=== PATIENT | female | born 1965 | race African-American/Black ===

== ENCOUNTER 2020-09-16 08:24 | Inpatient (IN) | payer MEDICAID, SELFPAY ==
[2020-09-16] VITALS (12 sets, daily range): BP systolic 150–190; BP diastolic 62–142; PULSE 78–130; RESP 18–20; TEMP 36.1–37; O2SAT 97–98; BMI 27.8
--- NOTE | ~2020-09-16 | XR_ITS ---
EXAMINATION: XR CHEST CLINICAL INFORMATION: SOB COMPARISON: None TECHNIQUE: Frontal view of the chest was obtained. FINDINGS: There is moderate cardiomegaly with normal pulmonary vascularity. The lungs are well-expanded and clear. No gross bony abnormality seen. XR/XR chest 1V IMPRESSION: Moderate cardiomegaly. No acute process seen.
--- NOTE | 2020-09-16 08:43 | ECG_ITS ---
Test Reason : TACHY Blood Pressure : / mmHG Vent. Rate : 129 BPM Atrial Rate : 093 BPM P-R Int : 000 ms QRS Dur : 078 ms QT Int : 268 ms P-R-T Axes : 000 -35 -33 degrees QTc Int : 392 ms Atrial fibrillation with rapid ventricular response with premature ventricular or aberrantly conducted complexes Left axis deviation cannot exclude old Inferior infarct , age undetermined Abnormal ECG When compared with ECG of 25-FEB-2009 08:43, Atrial fibrillation has replaced Sinus rhythm Nonspecific T wave abnormality, worse in Inferior leads Nonspecific T wave abnormality now evident in Anterolateral leads Referred By: Generic ED Physician Electronically Signed By:HEIDE MOON
--- NOTE | 2020-09-16 08:44 | PC.NURSE ---
difficulty laying flat or semi fowlers, r>l le edema noted
--- NOTE | 2020-09-16 09:04 | ED_ITS ---
HPI - SOB/Dyspnea General Chief Complaint: Dyspnea Stated Complaint: SOB Time Seen by Provider: 09/16/20 09:32 Source: patient Mode of arrival: ambulatory Limitations: no limitations History of Present Illness HPI Narrative: Patient presents to the ED for shortness of breath after sensation and sensation of something stuck in the throat. Patient states she feels her heart is beating fast. Patient states mild swelling of lower extremities. Patient denies any fever, chills, coughing up blood, chest pain on inspiration, chest pain, any drug use, recent long travel, or any history of alcohol abuse. Related Data Home Medications Medication Instructions Recorded Confirmed No Known Home Meds 09/16/20 09/16/20 Allergies Allergy/AdvReac Type Severity Reaction Status Date / Time No Known Allergies Allergy Unverified 01/05/20 15:53 Review of Systems Review of Systems: Yes all other systems are reviewed and are negative Constitutional: Constitutional: Reports as per HPI and Reports no additional constitutional complaints Eyes: Eyes: Reports as per HPI and Reports no additional eye complaints ENT: Reports system reviewed and no additional complaints, except as documented and Reports as per HPI Cardiovascular: Cardiovascular: Reports as per HPI, Reports no additional cardiovascular complaints and Reports dyspnea Respiratory: Respiratory: Reports as per HPI, Reports no additional respiratory complaints and Reports dyspnea Gastrointestinal: Gastrointestinal: Reports as per HPI and Reports no additional gastrointestinal complaints Genitourinary: Genitourinary: Reports no additional female genitourinary complaints and Reports as per HPI Musculoskeletal: Musculoskeletal: Reports no additional musculoskeletal complaints and Reports as per HPI Neurologic: Reports system reviewed and no additional complaints, except as documented and Reports as per HPI [facility] Social History Social History (Updated 09/16/20 @ 11:53 by Patrice Nj MD) Household Members: Significant Other Housing: House Do you presently have visiting nurse or other home services: No Alcohol intake: never Patient Tobacco Use Status: Former Tobacco user Quit Date: about 2018 Smoked in Last 30 Days: No Use of substances other than those prescribed or required for medical reasons: Yes Substance Use Type: Marijuana Have you been hit, kicked, punched, or otherwise hurt by someone within the past year? If so, by whom?: No Do you feel safe in your current relationship?: No Is there a partner from a previous relationship who is making you feel unsafe now?: No Are you made to feel afraid or neglected: No Advance Directives: Yes Advance Directives Information Provided: No Advance Directives on File: No Advance Directives Date on File: 09/16/20 Do you have thoughts of harming others: None Do you have a plan to hurt others: No Plan Recently lost weight without trying: No Eating poorly because of decreased appetite: No Patient : No Physical Exam Vital Signs: Vital Signs: Last Vital Signs Temp 97.0 F 09/16/20 12:50 Pulse 108 H 09/16/20 13:05 Resp 20 09/16/20 12:50 BP 190/100 H 09/16/20 13:05 Pulse Ox 98 09/16/20 12:50 Body Mass Index 27.8 Const: General: cooperative, healthy appearing, comfortable, no acute distress, well developed, alert and awake Orientation/consciousness: patient oriented x3 HENMT: Head: Yes normal to inspection, Yes No palpable skull fracture present, Yes normocephalic, Yes atraumatic and Yes abrasion Eyes: General: appearance normal, both eyes and all related structures Neck: Neck: Yes normal visual inspection, Yes full ROM, Yes no lymphadenopathy, Yes no meningeal signs, Yes trachea midline and Yes supple Chest: Chest palpation & inspection: normal inspection of the chest and normal palpation of entire chest wall Resp: Effort & Inspection: normal respiratory effort and able to speak in complete sentences Auscultation: clear to auscultation bilaterally Cardio: Jugular venous distension: no JVD Heart sounds: S1 normal heart sound present and S2 normal heart sound present GI: Inspection: Yes normal to inspection and No abdominal wall ecchymosis Palpation (GI): Soft to palpation, not firm, nontender, no guarding and not rigid : General: No CVA tenderness and Yes no CVA tenderness Back/Spine/Pelvis: Back: no CVA tenderness, No CVA tenderness and No back tenderness Skin: General skin exam: no rashes or lesions noted and elasticity normal Neuro: General: patient oriented x3, gait normal, no meningeal signs and CN's II-XI intact bilaterally Cranial nerves: Yes CN's II-XII intact bilaterally Extrem: Other: Bilateral lower extremity positive for 1+ pitting edema. Negative for calf tenderness General: Yes normal to inspection and Yes full ROM Psych: Appearance: grossly normal, well kempt and not disheveled Course Course Course Narrative: EKG shows new atrial fibrillation. Patient has no history of atrial fibrillation on previous EKG. Patient herself never been formally regular heartbeat. Heart rate within 140 to 160s on alarm security or surveillance monitor. Cardizem 10 mg IV ordered. Labs ordered. Reevaluation(s) Reevaluation #1: Patient given other Cardizem 20 due to heart rate going back to 140s after being controlled to 108. BNP over 1000. Patient given Lasix. Troponin 22.5. X-ray negative for pneumonia. X-ray shows cardiomegaly. Spoke with hospitalist Dr. Schuster will accept patient to be admitted. Recommend putting patient on cadizem drip to keep heart rate control. Patient agreeable with plan to be admitted. MDM - SOB/Dyspnea MDM Narrative Medical decision making narrative: Atrial fibrillation. CHF Lab Data Result diagrams: 09/16/20 08:55 09/16/20 08:55 Labs: Lab Results 09/16/20 09/16/20 09/16/20 Range/Units 08:55 08:55 08:55 WBC 5.2 (4.8-10.8) X10*3/uL RBC 4.95 (4.20-5.50) X10*6/uL Hgb 14.1 (12.0-16.0) g/dl Hct 44.5 (37-47) % MCV 89.9 (80-98) fL MCH 28.5 (27.0-33.0) pg MCHC 31.7 (31.0-35.0) g/dl RDW 13.1 (11.0-16.0) % Plt Count 246 (160-400) X10*3/uL MPV 10.8 (9.4-12.3) fL Immature Gran % (Auto) 0.0 (0.0-0.4) % Neut % (Auto) 33.8 L (45-73) % Lymph % (Auto) 46.6 H (20-40) % [place] % (Auto) 7.3 (2-11) % Eos % (Auto) 11.5 H (0-4) % Baso % (Auto) 0.8 (0-2) % Lymph # (Auto) 2.4 (1.2-4.9) X10*3/uL [place] # (Auto) 0.4 (0.1-1.2) X10*3/uL Eos # (Auto) 0.6 H (0.0-0.4) X10*3/uL Baso # (Auto) 0.0 (0.0-0.2) X10*3/uL Abs Immat Gran (auto) 0.00 (0.00-0.03) X10*3/uL Absolute Neuts (auto) 1.8 L (2.0-8.3) X10*3/uL Absolute Nucleated RBC 0.000 (0.0-0.012) X10*3/uL Nucleated RBC % (auto) 0.0 (0.0-0.2) /100WBC PT 13.8 H (10.8-13.0) SEC INR 1.2 H (0.9-1.1) APTT 34.7 (24.1-38.0) SEC Sodium 139 (135-145) mmol/L Potassium 4.2 (3.3-5.1) mmol/L Chloride 106 (96-108) mmol/L Carbon Dioxide 22 (22-29) mmol/L Anion Gap 15 (12-20) BUN 15 (9-16) mg/dL Creatinine 1.18 (0.5-1.4) mg/dL Estim Creat Clear Calc 66.1 Estimated GFR 47 Random Glucose 121 H (60-115) mg/dL Calcium 9.2 (8.4-10.2) mg/dL Total Bilirubin 0.9 (0.0-1.0) mg/dL Direct Bilirubin 0.6 H (0.0-0.5) mg/dL AST 28 (5-31) U/L ALT 28 (0-31) U/L Alkaline Phosphatase 107 (39-117) U/L Troponin I High Sens (<3.5-17.0) ng/L B-Natriuretic Peptide (<100) pg/mL Total Protein 6.4 L (6.5-8.0) g/dL Albumin 3.8 (3.5-5.0) g/dL TSH 1.75 (0.32-4.0) uIU/mL 09/16/20 09/16/20 Range/Units 08:55 08:55 WBC (4.8-10.8) X10*3/uL RBC (4.20-5.50) X10*6/uL Hgb (12.0-16.0) g/dl Hct (37-47) % MCV (80-98) fL MCH (27.0-33.0) pg MCHC (31.0-35.0) g/dl RDW (11.0-16.0) % Plt Count (160-400) X10*3/uL MPV (9.4-12.3) fL Immature Gran % (Auto) (0.0-0.4) % Neut % (Auto) (45-73) % Lymph % (Auto) (20-40) % [place] % (Auto) (2-11) % Eos % (Auto) (0-4) % Baso % (Auto) (0-2) % Lymph # (Auto) (1.2-4.9) X10*3/uL [place] # (Auto) (0.1-1.2) X10*3/uL Eos # (Auto) (0.0-0.4) X10*3/uL Baso # (Auto) (0.0-0.2) X10*3/uL Abs Immat Gran (auto) (0.00-0.03) X10*3/uL Absolute Neuts (auto) (2.0-8.3) X10*3/uL Absolute Nucleated RBC (0.0-0.012) X10*3/uL Nucleated RBC % (auto) (0.0-0.2) /100WBC PT (10.8-13.0) SEC INR (0.9-1.1) APTT (24.1-38.0) SEC Sodium (135-145) mmol/L Potassium (3.3-5.1) mmol/L Chloride (96-108) mmol/L Carbon Dioxide (22-29) mmol/L Anion Gap (12-20) BUN (9-16) mg/dL Creatinine (0.5-1.4) mg/dL Estim Creat Clear Calc Estimated GFR Random Glucose (60-115) mg/dL Calcium (8.4-10.2) mg/dL Total Bilirubin (0.0-1.0) mg/dL Direct Bilirubin (0.0-0.5) mg/dL AST (5-31) U/L ALT (0-31) U/L Alkaline Phosphatase (39-117) U/L Troponin I High Sens 22.5 H* (<3.5-17.0) ng/L B-Natriuretic Peptide 1315 H Cancelled (<100) pg/mL Total Protein (6.5-8.0) g/dL Albumin (3.5-5.0) g/dL TSH (0.32-4.0) uIU/mL ECG Data Interpretation: Atrial fibrillation with RVR. Ventricular rate 129. QT to 68. QRS 78. QTC 3 92. Negative STEMI Critical Care Time Critical Care Time Critical Care Time: Yes Total Critical Care Time: 60 Attestation: Patient given Cardizem due to atrial fibrillation rate of 160. BNP 1000 patient given Lasix. As recommended by hospitalists patient placed on Cardizem drip. Discharge Plan Discharge Clinical Impression: New onset atrial fibrillation, Acute CHF Patient Disposition: Admitted As Inpatient Interventions: Admission Worksheet (ED) Last Done: 09/16/20 12:44 Discharge Date/Time: 09/16/20 12:45
[2020-09-16 09:05] LABS: Basophils Percent Auto 0.8 % (0-2); Eosinophils Absolute Auto 0.6 X10*3/uL (0.0-0.4); Eosinophils Percent Auto 11.5 % (0-4); Hematocrit 44.5 % (37-47); Hemoglobin 14.1 g/dl (12.0-16.0); Lymphocytes Absolute Auto 2.4 X10*3/uL (1.2-4.9); Lymphocytes Percent Auto 46.6 % (20-40); MANUAL DIFF FLAG NO; Mean Corpuscular HGB Conc 31.7 g/dl (31.0-35.0); Mean Corpuscular Hemoglobin 28.5 pg (27.0-33.0); Mean Corpuscular Volume 89.9 fL (80-98); Mean Platelet Volume 10.8 fL (9.4-12.3); Monocytes Absolute Auto 0.4 X10*3/uL (0.1-1.2); Monocytes Percent Auto 7.3 % (2-11); Neutrophils Absolute Auto 1.8 X10*3/uL (2.0-8.3); Neutrophils Percent Auto 33.8 % (45-73); Platelet Count 246 X10*3/uL (160-400); Red Blood Count 4.95 X10*6/uL (4.20-5.50); Red Cell Distribution Width 13.1 % (11.0-16.0); White Blood Count 5.2 X10*3/uL (4.8-10.8)
[2020-09-16 09:13] LABS: INTERNATIONAL NORM RATIO 1.2 (0.9-1.1); Prothrombin Time 13.8 SEC (10.8-13.0)
[2020-09-16] MEDS: dilTIAZem HCL 50 MG/10 ML VIAL 10 MG IVPUSH ×2 (09:15→10:38)
[2020-09-16 09:16] LABS: Partial Thromboplastin Time 34.7 SEC (24.1-38.0)
[2020-09-16 09:29] LABS: Anion Gap 15 (12-20); Blood Urea Nitrogen 15 mg/dL (9-16); Calcium 9.2 mg/dL (8.4-10.2); Carbon Dioxide 22 mmol/L (22-29); Chloride 106 mmol/L (96-108); Creatinine Clr Calc Pharmacy 66.1; Estimated Glomerular Filt Rate 47; Glucose Random 121 mg/dL (60-115); Potassium 4.2 mmol/L (3.3-5.1); Sodium 139 mmol/L (135-145)
--- NOTE | 2020-09-16 09:29 | PC.NURSE ---
pt remains in a fib s/p cardizem bolus, now a controlled rate 80-100
[2020-09-16 09:41] LABS: Troponin-I High Sensitivity 22.5 ng/L (<3.5-17.0)
[2020-09-16 09:56] LABS: Alanine Aminotransferase 28 U/L (0-31); Albumin Level 3.8 g/dL (3.5-5.0); Alkaline Phosphatase 107 U/L (39-117); Aspartate Amino Transferase 28 U/L (5-31); Bilirubin Direct 0.6 mg/dL (0.0-0.5); Bilirubin Total 0.9 mg/dL (0.0-1.0); Total Protein 6.4 g/dL (6.5-8.0)
[2020-09-16 10:06] LABS: B Type Natriuretic Peptide 1315 pg/mL (<100)
[2020-09-16 10:16] LABS: TSH reflex Free T4 1.75 uIU/mL (0.32-4.0)
[2020-09-16] MEDS: Furosemide 40 MG/4 ML VIAL IVPUSH ×2 (10:39→17:03)
--- NOTE | 2020-09-16 11:47 | P.HPHOSP_ITS ---
History of Present Illness Date of Service: 09/16/20 Chief Complaint: sob 54-year-old female presented with 2 weeks of shortness of breath. Patient states that prior to 2 weeks ago she was feeling in good health. She then started to notice shortness of breath, worse on exertion, orthopnea, increasing lower extremity edema. She was relieved by rest. She denies any palpitations, chest pain, fever chills. She denies any history of arrhythmia or CHF. She is not on any home meds and has no noted medical history. She denies any symptoms of sleep apnea, denies alcohol, denies caffeine. In the ED, EKG showed atrial fibrillation at 129, chest x-ray showed moderate cardiomegaly with normal pulmonary vascularity, BNP elevated at 1315, TSH 1.75. Patient was given 40 mg of IV Lasix and started on Cardizem. Review of Systems Review of Systems: Constitutional: Denies fever, denies Chills Eyes: denies blurry vision ENT: denies sore throat CVS: denies chest pain Respiratory: dyspnea GI: no abdominal pain : denies dysuria MSK: denies neck pain Skin: denies rash Neuro: denies specific motor weakness Psych: denies suicidal ideation Endocrine: denies heat/cold intoleratnce Hematologic: denies easy bleeding Allergy: denies hives PMFSH Pertinent family history: htn Social History (Updated 09/16/20 @ 11:53 by Patrice Nj MD) Alcohol intake: never Patient Tobacco Use Status: Former Tobacco user Quit Date: about 2017 Smoked in Last 30 Days: No Use of substances other than those prescribed or required for medical reasons: No Substance Use Type: Marijuana Advance Directives: Yes Advance Directives Information Provided: No Advance Directives on File: No Patient : No Meds Allergies Allergy/AdvReac Type Severity Reaction Status Date / Time No Known Allergies Allergy Unverified 01/05/20 15:53 Active Medications: Current Medications Generic Name Dose Route Start Last Admin Trade Name Freq PRN Reason Stop Dose Admin Diltiazem HCl 125 mg/ Sodium 125 mls @ 0 mls/hr 09/16/20 11:45 Chloride IVCONT .Q0M [facility] Protocol Per Protocol Pharmacy Consult 1 each 09/16/20 11:10 Consult Rx Perform Med Rec MISCELLANE ONCE PRN Consult order Home Medications Medication Instructions Recorded Confirmed Last Taken Type No Known Home Meds 09/16/20 09/16/20 Unknown History Physical Exam Vital Signs and Narrative: Vital Signs: Last Vital Signs Temp 98 F 09/16/20 08:37 Pulse 114 H 09/16/20 10:38 Resp 18 09/16/20 08:37 BP 175/106 H 09/16/20 10:38 Pulse Ox 98 09/16/20 08:37 Body Mass Index 27.8 General: no acute distress while at rest HEENT: atraumatic Neck: normal to visual inspection CVS: S1, S2, iregular, rapid Resp: diminished Chest: non tender GI: soft, non tender, non distended : no CVA tenderness Skin: no rashes Extremities: 2-3+ edema bilateral Neuro: Oriented X3, grossly intact Psych: cooperative Results Labs CBC and Chem 7: 09/16/20 08:55 09/16/20 08:55 Labs: Laboratory Results - last 24 hr 09/16/20 09/16/20 09/16/20 08:55 08:55 08:55 MCV 89.9 MCH 28.5 MCHC 31.7 RDW 13.1 Plt Count 246 MPV 10.8 Immature Gran % (Auto) 0.0 Neut % (Auto) 33.8 L Lymph % (Auto) 46.6 H Person % (Auto) 7.3 Eos % (Auto) 11.5 H Baso % (Auto) 0.8 Lymph # (Auto) 2.4 Person # (Auto) 0.4 Eos # (Auto) 0.6 H Baso # (Auto) 0.0 Abs Immat Gran (auto) 0.00 Absolute Neuts (auto) 1.8 L Absolute Nucleated RBC 0.000 Nucleated RBC % (auto) 0.0 PT 13.8 H INR 1.2 H APTT 34.7 Anion Gap 15 Estim Creat Clear Calc 66.1 Estimated GFR 47 Random Glucose 121 H Calcium 9.2 Total Bilirubin 0.9 Direct Bilirubin 0.6 H AST 28 ALT 28 Alkaline Phosphatase 107 Troponin I High Sens B-Natriuretic Peptide Total Protein 6.4 L Albumin 3.8 TSH 1.75 09/16/20 09/16/20 08:55 08:55 MCV MCH MCHC RDW Plt Count MPV Immature Gran % (Auto) Neut % (Auto) Lymph % (Auto) Person % (Auto) Eos % (Auto) Baso % (Auto) Lymph # (Auto) Person # (Auto) Eos # (Auto) Baso # (Auto) Abs Immat Gran (auto) Absolute Neuts (auto) Absolute Nucleated RBC Nucleated RBC % (auto) PT INR APTT Anion Gap Estim Creat Clear Calc Estimated GFR Random Glucose Calcium Total Bilirubin Direct Bilirubin AST ALT Alkaline Phosphatase Troponin I High Sens 22.5 H* B-Natriuretic Peptide 1315 H Cancelled Total Protein Albumin TSH Imaging Radiologist's Impressions: Impressions Chest X-Ray 09/16/20 09:13 IMPRESSION: Moderate cardiomegaly. No acute process seen. Assessment and Plan (1) New onset a-fib: Status: Acute (2) Acute CHF: Status: Acute (3) HTN (hypertension): Status: Acute 54F presented with sob, found to have new onset afib with rvr and chf new onset atrial fibrillation with RVR complicated by acute unspecified CHF diltiazem drip echo cardio eval iv lasix suspect undiagnosed HTN iv cardizem for now, monitor, will likely need to add meds vte prophylaxis - lovenox
--- NOTE | 2020-09-16 12:20 | PC.NURSE ---
REPORT GIVEN FOR [facility] ADMISSION
[2020-09-16 12:23] LABS: COVID-19 Test Negative (Negative)
--- NOTE | 2020-09-16 12:24 | PC.NURSE ---
PROVIDERS AWARE OF HTN
[2020-09-16] MEDS: dilTIAZem HCL 125 MG in 0.9 % Sodium Chloride 100 ML 10 MG IVCONT (13:05)
[2020-09-16] MEDS: Enoxaparin Sodium 40 MG/0.4 ML SYRINGE SUBCUT (13:11)
[2020-09-16] MEDS: Acetaminophen 325 MG TABLET 650 MG PO (13:24)
[2020-09-16] MEDS: 0.9 % Sodium Chloride Flush 3 ML SYRINGE IVFLUSH (20:45)
[2020-09-17 03:15] VITALS: BP 152/54; PULSE 88; RESP 18; TEMP 36.9; O2SAT 100
[2020-09-17 06:10] LABS: Hematocrit 39.8 % (37-47); Hemoglobin 12.5 g/dl (12.0-16.0); Mean Corpuscular HGB Conc 31.4 g/dl (31.0-35.0); Mean Corpuscular Volume 89.2 fL (80-98); Mean Platelet Volume 10.9 fL (9.4-12.3); Platelet Count 223 X10*3/uL (160-400); Red Blood Count 4.46 X10*6/uL (4.20-5.50); Red Cell Distribution Width 12.9 % (11.0-16.0); White Blood Count 4.3 X10*3/uL (4.8-10.8)
[2020-09-17 06:17] LABS: Anion Gap 12 (12-20); Blood Urea Nitrogen 13 mg/dL (9-16); Calcium 8.8 mg/dL (8.4-10.2); Carbon Dioxide 29 mmol/L (22-29); Chloride 104 mmol/L (96-108); Creatinine Clr Calc Pharmacy 69.1; Estimated Glomerular Filt Rate 50; Glucose Random 95 mg/dL (60-115); Magnesium 1.6 mg/dL (1.6-2.6); Potassium 3.8 mmol/L (3.3-5.1); Sodium 141 mmol/L (135-145)
[2020-09-17] MEDS: Furosemide 40 MG/4 ML VIAL IVPUSH ×2 (06:28→17:13)
[2020-09-17] MEDS: 0.9 % Sodium Chloride Flush 3 ML SYRINGE IVFLUSH (07:57)
[2020-09-17 08:00] VITALS: BP 156/68; PULSE 101; RESP 18; TEMP 36.5; O2SAT 97
[2020-09-17] MEDS: dilTIAZem HCL 125 MG in 0.9 % Sodium Chloride 100 ML 10 MG IVCONT (08:56)
[2020-09-17] MEDS: Magnesium Sulfate/H2O 2 GM/50 ML PIGGYBACK IV (08:57)
--- NOTE | 2020-09-17 09:40 | HO.PM.IMPN ---
Subjective Subjective Date of Service: 09/17/20 Interval History: sob improved Cardiovascular Cardiovascular: Reports no additional cardiovascular complaints Gastrointestinal Gastrointestinal: Reports no additional gastrointestinal complaints Physical Exam Vital Signs: Vital Signs: Last Vital Signs Temp 97.7 F 09/17/20 08:00 Pulse 101 H 09/17/20 08:00 Resp 18 09/17/20 08:00 BP 156/68 H 09/17/20 08:00 Pulse Ox 97 09/17/20 08:00 Body Mass Index 27.8 General: AO X 3, no acute distress Resp: CTA bilateral CVS: S1,S2,rapid irregular, 1-2+ edema GI: soft, non tender, non distended Neuro: motor grossly intact Psych: appropriate affect Objective Data Current Medications Generic Name Dose Route Start Last Admin Trade Name Freq PRN Reason Stop Dose Admin Acetaminophen 650 mg 09/16/20 12:52 09/16/20 13:24 Acetaminophen 325 Mg Tablet PO 650 mg Q6H PRN Administration pain Apixaban 5 mg 09/17/20 10:00 Apixaban 5 Mg Tablet PO BID ELIZABETH Enoxaparin Sodium 40 mg 09/16/20 11:49 09/16/20 13:11 Enoxaparin Sodium 40 Mg/0.4 Ml Syringe SUBCUT 40 mg Q24H ELIZABETH Administration Furosemide 40 mg 09/16/20 18:00 09/17/20 06:28 Furosemide 40 Mg/4 Ml Vial IVPUSH 40 mg Q12H ELIZABETH Administration Protocol Diltiazem HCl 125 mg/ Sodium 125 mls @ 0 mls/hr 09/16/20 11:45 09/17/20 08:56 Chloride IVCONT 10 mg/hr .Q0M ELIZABETH 10 mls/hr Administration Protocol Per Protocol Pharmacy Consult 1 each 09/16/20 11:10 Consult Rx Perform Med Rec MISCELLANE ONCE PRN Consult order Sodium Chloride 3 ml 09/16/20 16:00 09/17/20 07:57 0.9 % Sodium Chloride Flush 3 Ml Syringe IVFLUSH 3 ml QSHIFT ELIZABETH Administration Labs CBC & Chem 7: 09/17/20 05:16 09/17/20 05:16 Assessment and Plan (1) New onset a-fib: Status: Acute Assessment and Plan: 54F presented with sob, found to have new onset afib new onset afib with acute chf continue cardizem follow up echo lasix plan for TERRY/CV tomorrow, npo after midnight started rodo undiagnosed HTN will decide based on echo results
[2020-09-17] MEDS: Apixaban 5 MG TABLET PO ×2 (10:19→20:04)
--- NOTE | 2020-09-17 11:00 | P.CONCA_ITS ---
History of Present Illness History of Present Illness Date of Service: 09/17/20 Consult reason: atrial fibrillation Chief complaint: New Afib CHF Narrative: This is a cardiology consultation regarding atrial fibrillation. Patient states that she has not seen a doctor in many years. Hence we do not know anything about her underlying medical issues. She states that recently she went to [place] with her friend and then after that she has not been feeling too good. Started having shortness of breath with physical activities and that actually led to this hospitalization. She is not feeling any palpitations. However she was found to be in atrial fibrillation rapid rate upon arrival and has been put on a Cardizem drip. She is not aware of any such diagnoses in the past. She also had swollen feet for a few days time. Review of Systems Review of Systems: Yes all other systems are reviewed and are negative Cardiovascular: Cardiovascular: Reports as per HPI, Reports no additional cardiovascular complaints, Denies acrocyanosis, Denies cool extremities, Denies painful fingertips, Denies chest pain, Denies chest pain at rest, Denies diaphoresis, Denies syncope, Denies irregular heart rhythm, Denies claudication, Reports leg edema, Denies lightheadedness, Denies palpitations and Reports dyspnea Respiratory: Respiratory: Reports dyspnea Neurologic: Denies syncope Endocrine: Endocrine: Denies palpitations [facility] Family History Family history: reviewed and not pertinent Social History Social History (Updated 09/16/20 @ 11:53 by Patrice Nj MD) Household Members: Significant Other Housing: House Do you presently have visiting nurse or other home services: No Alcohol intake: never Patient Tobacco Use Status: Former Tobacco user Quit Date: about 2018 Smoked in Last 30 Days: No Use of substances other than those prescribed or required for medical reasons: Yes Substance Use Type: Marijuana Currently Displaying Signs/Symptoms of Drug Intoxication Withdrawal: No Have you been hit, kicked, punched, or otherwise hurt by someone within the past year? If so, by whom?: No Do you feel safe in your current relationship?: No Is there a partner from a previous relationship who is making you feel unsafe now?: No Are you made to feel afraid or neglected: No Advance Directives: Yes Advance Directives Information Provided: No Advance Directives on File: No Advance Directives Date on File: 09/16/20 Do you have thoughts of harming others: None Do you have a plan to hurt others: No Plan Recently lost weight without trying: No Eating poorly because of decreased appetite: No Patient : No Meds Allergies Allergy/AdvReac Type Severity Reaction Status Date / Time No Known Allergies Allergy Unverified 01/05/20 15:53 Active Medications: Current Medications Generic Name Dose Route Start Last Admin Trade Name Freq PRN Reason Stop Dose Admin Acetaminophen 650 mg 09/16/20 12:52 09/16/20 13:24 Acetaminophen 325 Mg Tablet PO 650 mg Q6H PRN Administration pain Apixaban 5 mg 09/17/20 10:00 09/17/20 10:19 Apixaban 5 Mg Tablet PO 5 mg BID ELIZABETH Administration Enoxaparin Sodium 40 mg 09/16/20 11:49 09/16/20 13:11 Enoxaparin Sodium 40 Mg/0.4 Ml Syringe SUBCUT 40 mg Q24H ELIZABETH Administration Furosemide 40 mg 09/16/20 18:00 09/17/20 06:28 Furosemide 40 Mg/4 Ml Vial IVPUSH 40 mg Q12H ELIZABETH Administration Protocol Diltiazem HCl 125 mg/ Sodium 125 mls @ 0 mls/hr 09/16/20 11:45 09/17/20 08:56 Chloride IVCONT 10 mg/hr .Q0M ELIZABETH 10 mls/hr Administration Protocol Per Protocol Pharmacy Consult 1 each 09/16/20 11:10 Consult Rx Perform Med Rec MISCELLANE ONCE PRN Consult order Sodium Chloride 3 ml 09/16/20 16:00 09/17/20 07:57 0.9 % Sodium Chloride Flush 3 Ml Syringe IVFLUSH 3 ml QSHIFT ELIZABETH Administration Home Medications Medication Instructions Recorded Confirmed Last Taken Type No Known Home Meds 09/16/20 09/16/20 Unknown History Physical Exam Vital Signs: Vital Signs: Last Vital Signs Temp 97.7 F 09/17/20 08:00 Pulse 101 H 09/17/20 08:00 Resp 18 09/17/20 08:00 BP 156/68 H 09/17/20 08:00 Pulse Ox 97 09/17/20 08:00 Body Mass Index 27.8 Const: General: cooperative, comfortable and no acute distress Orientation/consciousness: patient oriented x3 HENMT: Other: Unremarkable Neck: Neck: Yes normal visual inspection Chest: Chest palpation & inspection: normal inspection of the chest Resp: Auscultation: clear to auscultation bilaterally, crackles bilateral at the base and no wheezes Cardio: Jugular venous distension: no JVD Palpation: normal PMI Heart sounds: S1 normal heart sound present, S2 normal heart sound present, no gallops, no murmurs and no rubs GI: Palpation (GI): Soft to palpation Back/Spine/Pelvis: Other: unremarkable Skin: General skin exam: no rashes or lesions noted Neuro: General: patient oriented x3 Extrem: General: Yes pedal edema (1+) Psych: Mental Status: mental status grossly normal Results Labs and Meds Result diagrams: 09/17/20 05:16 09/17/20 05:16 Lab results: Laboratory Results - last 24 hr 09/16/20 09/16/20 09/16/20 08:55 08:55 08:55 WBC RBC Hgb Hct MCV MCH MCHC RDW Plt Count MPV Absolute Nucleated RBC Nucleated RBC % (auto) APTT 34.7 Sodium Potassium Chloride Carbon Dioxide Anion Gap BUN Creatinine Estim Creat Clear Calc Estimated GFR Random Glucose Calcium Magnesium Total Bilirubin 0.9 Direct Bilirubin 0.6 H AST 28 ALT 28 Alkaline Phosphatase 107 Troponin I High Sens B-Natriuretic Peptide 1315 H Total Protein 6.4 L Albumin 3.8 TSH 1.75 COVID-19 (MARCO) COVID-19 GlySure Com 09/16/20 09/16/20 09/17/20 11:55 12:00 05:16 WBC 4.3 L RBC 4.46 Hgb 12.5 Hct 39.8 MCV 89.2 MCH 28.0 MCHC 31.4 RDW 12.9 Plt Count 223 MPV 10.9 Absolute Nucleated RBC 0.000 Nucleated RBC % (auto) 0.0 APTT Sodium Potassium Chloride Carbon Dioxide Anion Gap BUN Creatinine Estim Creat Clear Calc Estimated GFR Random Glucose Calcium Magnesium Total Bilirubin Direct Bilirubin AST ALT Alkaline Phosphatase Troponin I High Sens 14.0 B-Natriuretic Peptide Total Protein Albumin TSH COVID-19 (MARCO) Negative COVID-19 Clin Com See Note 09/17/20 05:16 WBC RBC Hgb Hct MCV MCH MCHC RDW Plt Count MPV Absolute Nucleated RBC Nucleated RBC % (auto) APTT Sodium 141 Potassium 3.8 Chloride 104 Carbon Dioxide 29 Anion Gap 12 BUN 13 Creatinine 1.13 Estim Creat Clear Calc 69.1 Estimated GFR 50 Random Glucose 95 Calcium 8.8 Magnesium 1.6 Total Bilirubin Direct Bilirubin AST ALT Alkaline Phosphatase Troponin I High Sens B-Natriuretic Peptide Total Protein Albumin TSH COVID-19 (MARCO) COVID-19 Clin Com ECG Attestation: I personally reviewed and interpreted this ECG as follows: Interpretation: Admission EKG with atrial fibrillation at a rate of 129/Min. On telemetry, she is currently at a rate of 110-120/Min. Assessment and Plan (1) Atrial fibrillation with rapid ventricular response: Status: Acute (2) Uncontrolled hypertension: Status: Acute Labs reviewed. Hemoglobin is 12.5. White cells 4.3. Platelets 223. Cre atinine is 1.13. BUN is 13. Potassium is 3.8. Blood sugar 95. Troponin 22.5 in 14. Cardiac BNP is 1315. CXR- moderate cardiomegaly; no acute process. Her blood pressures are quite high. Admission blood pressure was 179/142 mmHg. Current blood pressure is 126/97 mmHg. Most likely she has had long-term uncontrolled hypertension as she does not go to doctors. Atrial fibrillation may be relatively new, but not clear as to the time of onset. She may have underlying cardiomyopathy from the above. For today, keep her on IV Cardizem drip. Start Eliquis. She will need TERRY/cardioversion in the next 1-2 days time. We will arrange this based on the OR schedule. Discussed with the patient about the same and she understands and agrees. We will follow up with you. Procedures Date of Service Date of Service: 09/17/20
[2020-09-17 11:01] VITALS: BP 126/97; PULSE 93; RESP 18; TEMP 36.8; O2SAT 98
[2020-09-17] MEDS: Enoxaparin Sodium 40 MG/0.4 ML SYRINGE SUBCUT (11:42)
--- NOTE | 2020-09-17 15:43 | MHC.CM.PN ---
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 PT DENIES HAVING ANY DME OR HOME SERVICES FOR HERSELF AND REPORTS SHE IS FULLY INDEPENDENT. PT REPORTS SHE DOES NOT HAVE A PCP OR A HCP. SHE IS NOT INTERESTED IN COMPLETING A HCP TODAY BUT REPORTS BEING AWARE OF THE NEED TO OBTAIN A PCP. SHE REPORTS SHE IS INTERESTED IN GOING TO THE [employer] [facility]. CM PROVIDED INSTRUCTION ON LISTING A PCP WITH HER INSURANCE COMPANY AND A LIST OF [facility] PROVIDERS WELL THE PHONE NUMBER. CURRENT DC PLAN IS HOME WITH NO SERVICES PT WILL SELF ARRANGE TRANSPORT
[2020-09-17 15:53] VITALS: BP 148/98; PULSE 88; RESP 15; TEMP 37.1; O2SAT 98
[2020-09-17] MEDS: Acetaminophen 325 MG TABLET 650 MG PO (17:12)
[2020-09-17 19:46] VITALS: BP 129/92; PULSE 90; RESP 18; TEMP 36.7; O2SAT 98
[2020-09-18] VITALS (7 sets, daily range): BP systolic 130–158; BP diastolic 68–96; PULSE 88–103; RESP 18–20; TEMP 35.5–37.2; O2SAT 97–100
[2020-09-18] MEDS: dilTIAZem HCL 125 MG in 0.9 % Sodium Chloride 100 ML IVCONT (01:54)
[2020-09-18] MEDS: Furosemide 40 MG/4 ML VIAL IVPUSH (06:16)
[2020-09-18 06:32] LABS: Hematocrit 41.1 % (37-47); Hemoglobin 13.2 g/dl (12.0-16.0); Mean Corpuscular HGB Conc 32.1 g/dl (31.0-35.0); Mean Corpuscular Hemoglobin 28.4 pg (27.0-33.0); Mean Corpuscular Volume 88.4 fL (80-98); Mean Platelet Volume 10.9 fL (9.4-12.3); Platelet Count 240 X10*3/uL (160-400); Red Blood Count 4.65 X10*6/uL (4.20-5.50); Red Cell Distribution Width 12.9 % (11.0-16.0); White Blood Count 5.2 X10*3/uL (4.8-10.8)
[2020-09-18 06:46] LABS: Anion Gap 13 (12-20); Blood Urea Nitrogen 13 mg/dL (9-16); Calcium 8.7 mg/dL (8.4-10.2); Carbon Dioxide 30 mmol/L (22-29); Chloride 103 mmol/L (96-108); Creatinine Clr Calc Pharmacy 65.6; Estimated Glomerular Filt Rate 47; Glucose Fasting 94 mg/dL (60-99); Magnesium 1.8 mg/dL (1.6-2.6); Potassium 3.8 mmol/L (3.3-5.1); Sodium 142 mmol/L (135-145)
[2020-09-18] MEDS: Apixaban 5 MG TABLET PO ×2 (08:37→20:49)
--- NOTE | 2020-09-18 09:06 | P.PNIM_ITS ---
Subjective Subjective Date of Service: 09/18/20 Interval History: sob resolved Cardiovascular Cardiovascular: Reports no additional cardiovascular complaints Gastrointestinal Gastrointestinal: Reports no additional gastrointestinal complaints Physical Exam Vital Signs: Vital Signs: Last Vital Signs Temp 98 F 09/18/20 06:50 Pulse 100 09/18/20 06:50 Resp 20 09/18/20 06:50 BP 142/90 H 09/18/20 06:50 Pulse Ox 99 09/18/20 06:50 Body Mass Index 27.8 General: AO X 3, no acute distress Resp: CTA bilateral CVS: S1,S2,rapid irregular, 1+ edema GI: soft, non tender, non distended Neuro: motor grossly intact Psych: appropriate affect Objective Data Current Medications Generic Name Dose Route Start Last Admin Trade Name Freq PRN Reason Stop Dose Admin Acetaminophen 650 mg 09/16/20 12:52 09/17/20 17:12 Acetaminophen 325 Mg Tablet PO 650 mg Q6H PRN Administration pain Apixaban 5 mg 09/17/20 10:00 09/18/20 08:37 Apixaban 5 Mg Tablet PO 5 mg BID ELIZABETH Administration Enoxaparin Sodium 40 mg 09/16/20 11:49 09/17/20 11:42 Enoxaparin Sodium 40 Mg/0.4 Ml Syringe SUBCUT 40 mg Q24H ELIZABETH Administration Furosemide 40 mg 09/16/20 18:00 09/18/20 06:16 Furosemide 40 Mg/4 Ml Vial IVPUSH 40 mg Q12H ELIZABETH Administration Protocol Diltiazem HCl 125 mg/ Sodium 125 mls @ 0 mls/hr 09/16/20 11:45 09/18/20 01:54 Chloride IVCONT 2.5 mg/hr .Q0M ELIZABETH 2.5 mls/hr Administration Protocol Per Protocol Pharmacy Consult 1 each 09/16/20 11:10 Consult Rx Perform Med Rec MISCELLANE ONCE PRN Consult order Sodium Chloride 3 ml 09/16/20 16:00 09/18/20 08:39 0.9 % Sodium Chloride Flush 3 Ml Syringe IVFLUSH Not Given QSHIFT [facility] Labs CBC & Chem 7: 09/18/20 05:37 09/18/20 05:37 Assessment and Plan (1) New onset a-fib: Status: Acute Assessment and Plan: 54F presented with sob, found to have new onset afib new onset afib with acute chf follow up echo lasix - will change to po plan for TERRY/CV today started rodo undiagnosed HTN will decide treatment based on echo results
--- NOTE | 2020-09-18 11:40 | PM.PNCARD ---
Subjective Subjective Date of Service: 09/18/20 <MAGO Zhu - Last Filed: 09/18/20 11:52> 09/18/20 <Rizwan Akhtar MD - Last Filed: 09/18/20 16:54> Principal diagnosis: atrial fibrillation, uncontrolled HTN <MAGO Zhu - Last Filed: 09/18/20 11:52> Interval history: Cardiology follow up for the above. Seen at 1030. Today she is observed resting comfortably in bed. She reports feeling much better than admit. Breathing easy, intermittent cough. No chest pains, dizziness. She can feel heart palpitations. Slept well. TERRY CVR being scheduled for tomorrow. <MAGO Zhu Last Filed: 09/18/20 11:52> Review of Systems Review of Systems As above <MAGO Zhu - Last Filed: 09/18/20 11:52> Yes all other systems are reviewed and are negative <MAGO Zhu - Last Filed: 09/18/20 11:52> Physical Exam Vital Signs: Last Vital Signs Temp 96 F L 09/18/20 11:07 Pulse 94 09/18/20 11:07 Resp 18 09/18/20 11:07 BP 158/72 H 09/18/20 11:07 Pulse Ox 98 09/18/20 11:07 Body Mass Index 27.8 <MAGO Zhu - Last Filed: 09/18/20 11:52> Const General: cooperative, no acute distress, alert and awake <MAGO Zhu - Last Filed: 09/18/20 11:52> Orientation/consciousness: patient oriented x3 <MAGO Zhu Last Filed: 09/18/20 11:52> Eyes Conjunctivae: conjunctivae normal <MAGO Zhu Last Filed: 09/18/20 11:52> Neck Neck: Yes normal visual inspection and Yes no JVD <MAGO Zhu Last Filed: 09/18/20 11:52> Carotids: carotid upstroke abnormal <MAGO Zhu Last Filed: 09/18/20 11:52> Resp Effort & Inspection: normal respiratory effort, able to speak in complete sentences and not labored <Shana Suero [facility] - Last Filed: 09/18/20 11:52> Auscultation: clear to auscultation bilaterally, no crackles, no rales, no rhonchi and no wheezes <[facility] - Last Filed: 09/18/20 11:52> Cardio Other: Irregularly irregular heart tones <[facility] - Last Filed: 09/18/20 11:52> Palpation: normal PMI [facility] - Last Filed: 09/18/20 11:52> Rate: regular rate <[facility] - Last Filed: 09/18/20 11:52> Heart sounds: S1 normal heart sound present and S2 normal heart sound present <[facility] - Last Filed: 09/18/20 11:52> Peripheral pulses: Peripheral pulses 2+ throughout <[facility] - Last Filed: 09/18/20 11:52> GI Inspection: Yes normal to inspection <[facility] - Last Filed: 09/18/20 11:52> Neuro General: patient oriented x3 <[facility] - Last Filed: 09/18/20 11:52> Extrem General: Yes normal to inspection and No edema <[facility] - Last Filed: 09/18/20 11:52> Results Labs and Meds Result diagrams: : 09/18/20 05:37 09/18/20 05:37 <[facility] - Last Filed: 09/18/20 11:52> Lab results: Laboratory Results - last 24 hr 09/18/20 09/18/20 05:37 05:37 WBC 5.2 RBC 4.65 Hgb 13.2 Hct 41.1 MCV 88.4 MCH 28.4 MCHC 32.1 RDW 12.9 Plt Count 240 MPV 10.9 Absolute Nucleated RBC 0.000 Nucleated RBC % (auto) 0.0 Sodium 142 Potassium 3.8 Chloride 103 Carbon Dioxide 30 H Anion Gap 13 BUN 13 Creatinine 1.19 Estim Creat Clear Calc 65.6 Estimated GFR 47 Fasting Glucose 94 Calcium 8.7 Magnesium 1.8 <MAGO Zhu - Last Filed: 09/18/20 11:52> Progress Note: A&P Assessment and plan (1) New onset a-fib: Status: Acute <MARILY ZhuC - Last Filed: 09/18/20 11:52> Assessment and Plan: Presented with sob. Found to have new afib. Rates elevated and treated with Diltiazem drip for rate control. Tele now shows rates 80- 130s. She can feel palpitations. CXR showed moderate cardiomegaly. Given IV Lasix with improvement in breathing. CHADSVASc 3. Now on Eliquis for anticoagulation. Planning for TERRY CVR tomorrow. Keep NPO after midnight. <MAGO Zhu - Last Filed: 09/18/20 11:52> (2) Atrial fibrillation with rapid ventricular response: Status: Acute <MARILY ZhuC - Last Filed: 09/18/20 11:52> (3) Acute CHF: Status: Acute <MARILY ZhuC - Last Filed: 09/18/20 11:52> Assessment and Plan: BNP elevated at 1315 and with SOB on admit. Afib rates better controlled. BP had been 190/100 and now 142/90 with diltiazem and lasix use. Fluid balance remains +, unclear if accurate. On exam does not appear fluid overloaded at present. May have CMP from HTN, afib with elevated rates. Will assess with TERRY. <MARILY ZhuC - Last Filed: 09/18/20 11:52> (4) Uncontrolled hypertension: Status: Acute <MARILY ZhuC - Last Filed: 09/18/20 11:52> Assessment and Plan: Improving, as above. <MARILY ZhuC - Last Filed: 09/18/20 11:52> (5) HTN (hypertension): Status: Acute <MARILY ZhuC - Last Filed: 09/18/20 11:52> Fall Risk Details Current Medications: Current Medications Generic Name Dose Route Start Last Admin Trade Name Chanel PRN Reason Stop Dose Admin Acetaminophen 650 mg 09/16/20 12:52 09/17/20 17:12 Acetaminophen 325 Mg Tablet PO 650 mg Q6H PRN Administration pain Apixaban 5 mg 09/17/20 10:00 09/18/20 08:37 Apixaban 5 Mg Tablet PO 5 mg BID ELIZABETH Administration Enoxaparin Sodium 40 mg 09/16/20 11:49 09/17/20 11:42 Enoxaparin Sodium 40 Mg/0.4 Ml Syringe SUBCUT 40 mg Q24H ELIZABETH Administration Furosemide 40 mg 09/19/20 09:00 Furosemide 40 Mg Tablet PO DAILY ELIZABETH Protocol Diltiazem HCl 125 mg/ Sodium 125 mls @ 0 mls/hr 09/16/20 11:45 09/18/20 09:52 Chloride IVCONT 5 mg/hr .Q0M ELIZABETH 5 mls/hr Titration Protocol Per Protocol Pharmacy Consult 1 each 09/16/20 11:10 Consult Rx Perform Med Rec MISCELLANE ONCE PRN Consult order Sodium Chloride 3 ml 09/16/20 16:00 09/18/20 08:39 0.9 % Sodium Chloride Flush 3 Ml Syringe IVFLUSH Not Given QSHIFT [facility] <MAGO Zhu - Last Filed: 09/18/20 11:52> Time Spent With Patient Time: Total time spent is greater than 50% in coordination of care (as documented) at patient's floor/unit and/or counseling patient: <MAGO Zhu - Last Filed: 09/18/20 11:52> Time with patient: 15 - 24 minutes <MAGO Zhu - Last Filed: 09/18/20 11:52> Procedures Date of Service Date of Service: 09/18/20 <MAGO Zhu - Last Filed: 09/18/20 11:52>
--- NOTE | 2020-09-18 11:49 | CA_ITS ---
Transthoracic Echocardiogram Patient (Last, First, Middle): Sarah Desouza, Gender: Female Date of : 1965 Age: 54 Procedure Date: 09/18/2020 Procedure Type: Transthoracic Echocardiogram [place] [facility] [place] Height: 180.34 cm Weight: 90.72 kg BSA: 2.11 m2 Heart Rate: bpm BP: 142 / 90 mmHg Braille Transcriber: Referring MD: Patrice Nj MD Symptoms: new afib, chf Study Quality: Fair ECG Rhythm: Sinus Conclusions: - The left ventricular systolic function is moderately decreased. The visually estimated ejection fraction is between 30-35%. - Moderate to severely increased wall thickness. - Mildly increased right ventricular cavity size. There is borderline right ventricular systolic function. - The left atrium is moderately dilated. - Moderately elevated right atrial pressure. Mild pulmonary hypertension is present. Findings Left Ventricle Normal left ventricular cavity size. The left ventricular systolic function is moderately decreased. The visually estimated ejection fraction is between 30-35%. Diastolic function is indeterminate on the basis of available data. Moderate to severely increased wall thickness. Right Ventricle Mildly increased right ventricular cavity size. There is borderline right ventricular systolic function. Atria The left atrium is moderately dilated. Aortic Valve Normal aortic valve structure and function. There is no aortic valve stenosis. There is no aortic valve regurgitation. Mitral Valve The mitral valve appears normal. There is mild mitral valve regurgitation. There is no mitral valve stenosis. Pulmonic Valve Normal pulmonic valve structure and function. There is trace pulmonic valve regurgitation. Tricuspid Valve Normal tricuspid valve structure and function. There is mild tricuspid valve regurgitation. Moderately elevated right atrial pressure. Mild pulmonary hypertension is present. Great Vessels All visible segments of the aorta are normal in size. The visualized portions of the pulmonary artery and branches are normal. Venous The inferior vena cava is dilated and collapses less than 50% with inspiration. Pericardium/Pleural Prominent epicardial adipose tissue noted. There are no definitive echocardiographic findings of tamponade physiology. Cannot rule out posterior trace pericardial effusion. Measurements 2D Linear Measurements IVSd: 1.44 0.6-0.9/0.6-1.0 cm LVIDd: 5.11 3.9-5.3/4.2-5.9 cm LVIDd Index: 2.42 2.4-3.2/2.2-3.1 cm/m2 LVIDs: 4.06 2.0-3.6 cm LVPWd: 1.33 0.7-1.1 cm Ao Root: 3.10 2.1-3.5 cm LA Diam: 4.70 2.7-3.8/3.0-4.0 cm LAIDs Index: 2.23 1.5-2.3 cm/m2 LV Mass: 370.11 67-162/88-224 g LV Mass Index: 175.41 43-95/49-115 g/m2 LVOT Diam: 2.30 3.0+(-)1.3 cm 2D Systolic Function EF 4C: 27.10 >55% EF 2C: 32.80 >55% Mitral Valve MV Pk E: 1.02 MV Decel Time: 119.00 E'Lateral: 12.90 E'Medial: 5.00 E/E' Med: 20.40 E/E' Lat: 7.90 PHT: 35.00 MVA PHT: 6.[address] [place] [place]: 8.55 Aortic Valve AoV Pk Wood: 1.21 AoV Mn Wood: 0.81 AoV VTI: 0.19 AoV Pk Grad: 6.00 Aov Mn Grad: 3.00 REGINA Cont.VTI: 2.89 LVOT LVOT Pk Wood: 0.83 LVOT Mn Wood: 0.54 LVOT VTI: 0.13 LVOT Pk Grad: 3.00 LVOT Mn Grad: 1.00 LVOT Diam: 2.30 LVOT Area: 4.15 Diastolic Function MV Pk E: 1.02 E'Medial: 5.00 E/E' Med: 20.40 E' Laterial: 12.90 E/E' Lat: 7.90 Tricuspid Valve TR Pk Wood: 2.35 TR Pk Grad: 22.00 RA Press: 8.00 RVSP: 42.00 Great Vessels Aorta Ao Root-2D: 3.10 2.0-3.7 cm Ao Asc: 3.20 2.1-3.4 cm Pulmonary Valve PV Pk Wood: 0.91 Peak PV Grad: 3.00 Updated in Other Vendor System with Status of Final Rizwan Akhtar MD electronically signed on 09/18/2020 6:13:58 PM with status of Final
[2020-09-18] MEDS: Enoxaparin Sodium 40 MG/0.4 ML SYRINGE SUBCUT (12:01)
[2020-09-18] MEDS: diphenhydrAMINE HCL 50 MG/ML VIAL 25 MG IVPUSH (21:19)
[2020-09-19] VITALS (23 sets, daily range): BP systolic 89–162; BP diastolic 60–115; PULSE 70–148; RESP 17–20; TEMP 36.3–37; O2SAT 95–99
[2020-09-19] MEDS: dilTIAZem HCL 125 MG in 0.9 % Sodium Chloride 100 ML IVCONT (03:54)
--- NOTE | 2020-09-19 07:30 | CA_ITS ---
Transesophageal Echocardiogram Patient (Last, First, Middle): Sarah Desouza, Gender: Female Date of : 1965 Age: 54 Procedure Date: 09/19/2020 Procedure Type: Transesophageal Echocardiogram Location: [facility] [place] Height: 165.1 cm Weight: kg Automation Application Engineer: Referring MD: Maco Duncan MD Symptoms: Atrial fibrillation with rapid rate Conclusion: ??? The left ventricular systolic function is moderately decreased. The visually estimated ejection fraction is between 30-35%. ??? Normal right ventricular cavity size. There is borderline right ventricular systolic function. ??? There is no evidence of thrombus or mass in the left atrium. Findings Left Ventricle Normal left ventricular cavity size. The left ventricular systolic function is moderately decreased. The visually estimated ejection fraction is between 30-35%. Right Ventricle Normal right ventricular cavity size. There is borderline right ventricular systolic function. Atria There is no evidence of thrombus or mass in the left atrium. Aortic Valve Normal aortic valve structure and function. 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 There is trace mitral valve regurgitation. Pulmonic Valve Normal pulmonic valve structure and function. Tricuspid Valve Normal tricuspid valve structure. There is mild to moderate tricuspid valve regurgitation. Great Vessels All visible segments of the aorta are normal in size. Pericardium/Pleural There is no evidence of pericardial effusion. Updated by Rizwan Akhtar on 05:07 PM with Status of Final Rizwan Akhtar MD electronically signed on 09/19/2020 5:07:41 PM with status of Final
[2020-09-19] MEDS: Apixaban 5 MG TABLET PO ×2 (08:41→21:19)
--- NOTE | 2020-09-19 08:58 | HO.ANESPROP2 ---
HPI - Anesthesia Eval Consult details Narrative: 54 yo female here for TERRY PMFSH Active Problems Active Problems: All Active Problems (Updated 09/17/20 @ 11:04 by Maco Duncan MD) Uncontrolled hypertension (Acute) Atrial fibrillation with rapid ventricular response (Acute) HTN (hypertension) (Acute) Acute CHF (Acute) New onset a-fib (Acute) Family History Family history of problems with anesthesia: No Surgical History Surgical History (Updated 09/19/20 @ 09:06 by Anabel Hills) H/O tooth extraction History of Problems with Anesthesia: No Social History Social History (Updated 09/19/20 @ 09:07 by Anabel Hills) Household Members: Significant Other Housing: House Do you presently have visiting nurse or other home services: No Alcohol intake: current Alcohol intake frequency: former alcohol drinker Patient Tobacco Use Status: Former Tobacco user Quit Date: about 2017 Smoked in Last 30 Days: No Use of substances other than those prescribed or required for medical reasons: Yes Substance Use Type: Marijuana Currently Displaying Signs/Symptoms of Drug Intoxication Withdrawal: No Have you been hit, kicked, punched, or otherwise hurt by someone within the past year? If so, by whom?: No Do you feel safe in your current relationship?: No Is there a partner from a previous relationship who is making you feel unsafe now?: No Are you made to feel afraid or neglected: No Advance Directives: Yes Advance Directives Information Provided: No Advance Directives on File: No Advance Directives Date on File: 09/16/20 Do you have thoughts of harming others: None Do you have a plan to hurt others: No Plan Recently lost weight without trying: No Eating poorly because of decreased appetite: No Patient : No service: No Current occupational status: employed Meds Allergies Allergy/AdvReac Type Severity Reaction Status Date / Time No Known Allergies Allergy Unverified 01/05/20 15:53 Active Medications: Current Medications Generic Name Dose Route Start Last Admin Trade Name Freq PRN Reason Stop Dose Admin Acetaminophen 650 mg 09/16/20 12:52 09/17/20 17:12 Acetaminophen 325 Mg Tablet PO 650 mg Q6H PRN Administration pain Apixaban 5 mg 09/17/20 10:00 09/19/20 08:41 Apixaban 5 Mg Tablet PO 5 mg BID ELIZABETH Administration Enoxaparin Sodium 40 mg 09/16/20 11:49 09/18/20 12:01 Enoxaparin Sodium 40 Mg/0.4 Ml Syringe SUBCUT 40 mg Q24H ELIZABETH Administration Furosemide 40 mg 09/19/20 09:00 Furosemide 40 Mg Tablet PO DAILY [facility] Protocol Diltiazem HCl 125 mg/ Sodium 125 mls @ 0 mls/hr 09/16/20 11:45 09/19/20 07:48 Chloride IVCONT 0 mg/hr .Q0M ELIZABETH 0 mls/hr Titration Protocol Per Protocol Pharmacy Consult 1 each 09/16/20 11:10 Consult Rx Perform Med Rec MISCELLANE ONCE PRN Consult order Sodium Chloride 3 ml 09/16/20 16:00 09/19/20 07:44 0.9 % Sodium Chloride Flush 3 Ml Syringe IVFLUSH Not Given QSHIFT [facility] Home Medications Medication Instructions Recorded Confirmed Last Taken Type No Known Home Meds 09/16/20 09/16/20 Unknown History Exam Exam Date and Time: September 19, 2020 0859 Height,Weight and Vital Signs: Height 5 ft 11 in Weight 90.718 kg Last Vital Signs Temp 97.3 F 09/19/20 07:31 Pulse 88 09/19/20 07:44 Resp 18 09/19/20 07:31 BP 138/78 09/19/20 07:44 Pulse Ox 98 09/19/20 07:31 Vital Signs Temp Pulse Resp BP Pulse Ox 09/19/20 07:44 88 138/78 09/19/20 07:31 97.3 F 93 18 138/78 98 09/19/20 03:49 98.3 F 103 H 18 140/97 H 98 09/18/20 23:42 99 F 99 18 130/68 97 09/18/20 19:18 98.3 F 103 H 18 132/90 H 99 09/18/20 14:55 97.9 F 100 20 139/80 98 09/18/20 11:07 96 F L 94 18 158/72 H 98 Pertinent Lab Results Pertinent Lab Results: Laboratory Tests 09/16/20 09/16/20 09/16/20 08:55 08:55 08:55 WBC 5.2 RBC 4.95 Hgb 14.1 Hct 44.5 MCV 89.9 MCH 28.5 MCHC 31.7 RDW 13.1 Plt Count 246 MPV 10.8 Immature Gran % (Auto) 0.0 Neut % (Auto) 33.8 L Lymph % (Auto) 46.6 H [place] % (Auto) 7.3 Eos % (Auto) 11.5 H Baso % (Auto) 0.8 Lymph # (Auto) 2.4 [place] # (Auto) 0.4 Eos # (Auto) 0.6 H Baso # (Auto) 0.0 Abs Immat Gran (auto) 0.00 Absolute Neuts (auto) 1.8 L Absolute Nucleated RBC 0.000 Nucleated RBC % (auto) 0.0 PT 13.8 H INR 1.2 H APTT 34.7 Sodium 139 Potassium 4.2 Chloride 106 Carbon Dioxide 22 Anion Gap 15 BUN 15 Creatinine 1.18 Estim Creat Clear Calc 66.1 Estimated GFR 47 Random Glucose 121 H Fasting Glucose Calcium 9.2 Magnesium Total Bilirubin 0.9 Direct Bilirubin 0.6 H AST 28 ALT 28 Alkaline Phosphatase 107 Troponin I High Sens B-Natriuretic Peptide Total Protein 6.4 L Albumin 3.8 TSH 1.75 COVID-19 ([facility]) [email or web address] 09/16/20 09/16/20 09/16/20 08:55 08:55 11:55 WBC RBC Hgb Hct MCV MCH MCHC RDW Plt Count MPV Immature Gran % (Auto) Neut % (Auto) Lymph % (Auto) [place] % (Auto) Eos % (Auto) Baso % (Auto) Lymph # (Auto) [place] # (Auto) Eos # (Auto) Baso # (Auto) Abs Immat Gran (auto) Absolute Neuts (auto) Absolute Nucleated RBC Nucleated RBC % (auto) PT INR APTT Sodium Potassium Chloride Carbon Dioxide Anion Gap BUN Creatinine Estim Creat Clear Calc Estimated GFR Random Glucose Fasting Glucose Calcium Magnesium Total Bilirubin Direct Bilirubin AST ALT Alkaline Phosphatase Troponin I High Sens 22.5 H* B-Natriuretic Peptide 1315 H Cancelled Total Protein Albumin TSH COVID-19 ([facility]) Negative [email or web address] See Note 09/16/20 09/17/20 09/17/20 12:00 05:16 05:16 WBC 4.3 L RBC 4.46 Hgb 12.5 Hct 39.8 MCV 89.2 MCH 28.0 MCHC 31.4 RDW 12.9 Plt Count 223 MPV 10.9 Immature Gran % (Auto) Neut % (Auto) Lymph % (Auto) [place] % (Auto) Eos % (Auto) Baso % (Auto) Lymph # (Auto) [place] # (Auto) Eos # (Auto) Baso # (Auto) Abs Immat Gran (auto) Absolute Neuts (auto) Absolute Nucleated RBC 0.000 Nucleated RBC % (auto) 0.0 PT INR APTT Sodium 141 Potassium 3.8 Chloride 104 Carbon Dioxide 29 Anion Gap 12 BUN 13 Creatinine 1.13 Estim Creat Clear Calc 69.1 Estimated GFR 50 Random Glucose 95 Fasting Glucose Calcium 8.8 Magnesium 1.6 Total Bilirubin Direct Bilirubin AST ALT Alkaline Phosphatase Troponin I High Sens 14.0 B-Natriuretic Peptide Total Protein Albumin TSH COVID-19 ([facility]) COVID-19 [place] 09/18/20 09/18/20 05:37 05:37 WBC 5.2 RBC 4.65 Hgb 13.2 Hct 41.1 MCV 88.4 MCH 28.4 MCHC 32.1 RDW 12.9 Plt Count 240 MPV 10.9 Immature Gran % (Auto) Neut % (Auto) Lymph % (Auto) [place] % (Auto) Eos % (Auto) Baso % (Auto) Lymph # (Auto) [place] # (Auto) Eos # (Auto) Baso # (Auto) Abs Immat Gran (auto) Absolute Neuts (auto) Absolute Nucleated RBC 0.000 Nucleated RBC % (auto) 0.0 PT INR APTT Sodium 142 Potassium 3.8 Chloride 103 Carbon Dioxide 30 H Anion Gap 13 BUN 13 Creatinine 1.19 Estim Creat Clear Calc 65.6 Estimated GFR 47 Random Glucose Fasting Glucose 94 Calcium 8.7 Magnesium 1.8 Total Bilirubin Direct Bilirubin AST ALT Alkaline Phosphatase Troponin I High Sens B-Natriuretic Peptide Total Protein Albumin TSH COVID-19 ([facility]) COVID-19 [employer] ([employer]) Com Airway Mallampati Class: II TM Dist: >3cm Neck ROM: Full Loose/Missing/Broken Teeth: Yes (Poor dentition. Many missing. Many broken) Heart: Irregular Lungs: CTAB Assessment and Plan Assessment Anesthesia Assessment: Anesthesia Plan Discussed and Chart Reviewed Final Anesthetic Review NPO: Yes ASA Class: III Final Preanesthetic Review: No Changes in Pt Med Stat, Meds/Allgs Chart Reviewed, Consent Obtained/Reviewed and Anes Risks/Benef Reviewed Patient Risk: Intermediate Procedure Risk: Low Assessment/Block/Sedation in SS: Assess/Block/Sedation-SS Anesthetic Plan Anesthetic Plan: MAC: Disposition: Inp. Admit - Standard Bed
--- NOTE | 2020-09-19 09:21 | MHC.SHP ---
Pre-Procedural Eval Section A The patient is an INPATIENT: Yes The History & Physical has been completed within 30 days and I have reviewed it.: Yes Section B Chief Complaint: New Afib CHF Details of Present Illness: 54 female with Afib with RVR, CHF and cardiomyopathy. Here for TERRY +/- cardioversion. Allergies: Allergies Allergy/AdvReac Type Severity Reaction Status Date / Time No Known Allergies Allergy Unverified 01/05/20 15:53 Plan Diagnosis/Plan: Unchanged I have reviewed the history and physical and performed a pertinent physical examination on my patient. No changes have occurred unless specified.
--- NOTE | 2020-09-19 09:29 | PM.PNCARD ---
Subjective Subjective Date of Service: 09/19/20 <MAGO Zhu - Last Filed: 09/19/20 11:35> 09/19/20 <Rizwan Akhtar MD - Last Filed: 09/19/20 12:27> Principal diagnosis: atrial fibrillation, uncontrolled HTN <MAGO Zhu - Last Filed: 09/19/20 11:35> Interval history: Cardiology follow up for the above. Seen at 0840. Today she reports feeling well. Slept good. No sob, chest pains, heart palpitations. Leg edema nearly resolved. Planning for TERRY CVR today. <MAGO Zhu - Last Filed: 09/19/20 11:35> Review of Systems Review of Systems As above <MAGO Zhu - Last Filed: 09/19/20 11:35> Yes all other systems are reviewed and are negative <MAGO Zhu - Last Filed: 09/19/20 11:35> Physical Exam Vital Signs: Last Vital Signs Temp 98.4 F 09/19/20 09:04 Pulse 96 09/19/20 09:04 Resp 20 09/19/20 09:04 BP 162/109 H 09/19/20 09:04 Pulse Ox 96 09/19/20 09:04 Body Mass Index 27.8 <MAGO Zhu - Last Filed: 09/19/20 11:35> Const General: cooperative, healthy appearing, no acute distress, alert and awake <MAGO Zhu - Last Filed: 09/19/20 11:35> Orientation/consciousness: patient oriented x3 <MAGO Zhu - Last Filed: 09/19/20 11:35> Neck Neck: Yes normal visual inspection and Yes no JVD <MAGO Zhu Last Filed: 09/19/20 11:35> Resp Effort & Inspection: normal respiratory effort, able to speak in complete sentences and not labored <MAGO Zhu - Last Filed: 09/19/20 11:35> Auscultation: clear to auscultation bilaterally, no crackles, no rales, no rhonchi and no wheezes <[facility] REHAN Suero - Last Filed: 09/19/20 11:35> Cardio Other: irregularly irregular heart tones <[facility] - Last Filed: 09/19/20 11:35> Palpation: normal PMI <[facility] [place] - Last Filed: 09/19/20 11:35> Rate: regular rate <[facility] [place] [facility] - Last Filed: 09/19/20 11:35> Heart sounds: S1 normal heart sound present and S2 normal heart sound present <[facility] [place] [facility] - Last Filed: 09/19/20 11:35> Peripheral pulses: Peripheral pulses 2+ throughout [facility] - Last Filed: 09/19/20 11:35> GI Inspection: Yes normal to inspection <[facility] - Last Filed: 09/19/20 11:35> Neuro General: patient oriented x3 <[facility] [place] - Last Filed: 09/19/20 11:35> Extrem Other: +1 ankle edema [facility] - Last Filed: 09/19/20 11:35> General: Yes normal to inspection [facility] - Last Filed: 09/19/20 11:35> Results Labs and Meds Result diagrams: : 09/18/20 05:37 09/18/20 05:37 <[facility] - Last Filed: 09/19/20 11:35> Progress Note: A&P Assessment and plan (1) New onset a-fib: Status: Acute <[facility] [place] [facility] - Last Filed: 09/19/20 11:35> Assessment and Plan: Presented with sob. Found to have new afib. Rates elevated and treated with Diltiazem drip for rate control, drip now off. Tele now shows rates 80- 90s mostly and up to 120s. No palpitations today. CXR showed moderate cardiomegaly. Echo yesterday with EF 30-35%, mod to severe LVH, LA moderately dilated, mod increase in RA pressure, mild pulm edema. Given IV Lasix with improvement in breathing, now on PO Lasix. CHADSVASc 3. Now on Eliquis for anticoagulation. Planning for TERRY CVR today. Currently NPO. <MARILY ZhuC - Last Filed: 09/19/20 11:35> (2) Atrial fibrillation with rapid ventricular response: Status: Acute <MARILY ZhuC - Last Filed: 09/19/20 11:35> (3) Acute CHF: Status: Acute <MARILY ZhuC - Last Filed: 09/19/20 11:35> Assessment and Plan: BNP elevated at 1315 and with SOB on admit. Echo showed reduced EF. May be related to uncontrolled afib rates vs uncontrolled HTN. Afib rates now better controlled. BP had been 190/100 and now 138/78 with diltiazem and lasix use. Fluid balance remains +, unclear if accurate. On exam she has minimal leg edema otherwise does not appear fluid overloaded. TERRY/ CVR today and then will plan for addition of appropriate meds for CMP. <MARILY ZhuC - Last Filed: 09/19/20 11:35> (4) Uncontrolled hypertension: Status: Acute <MARILY ZhuC - Last Filed: 09/19/20 11:35> (5) HTN (hypertension): Status: Acute <MARILY ZhuC - Last Filed: 09/19/20 11:35> Fall Risk Details Current Medications: Current Medications Generic Name Dose Route Start Last Admin Trade Name Zackq PRN Reason Stop Dose Admin Acetaminophen 650 mg 09/16/20 12:52 09/17/20 17:12 Acetaminophen 325 Mg Tablet PO 650 mg Q6H PRN Administration pain Apixaban 5 mg 09/17/20 10:00 09/19/20 08:41 Apixaban 5 Mg Tablet PO 5 mg BID ELIZABETH Administration Enoxaparin Sodium 40 mg 09/16/20 11:49 09/18/20 12:01 Enoxaparin Sodium 40 Mg/0.4 Ml Syringe SUBCUT 40 mg Q24H ELIZABETH Administration Furosemide 40 mg 09/19/20 09:00 Furosemide 40 Mg Tablet PO DAILY ELIZABETH Protocol Diltiazem HCl 125 mg/ Sodium 125 mls @ 0 mls/hr 09/16/20 11:45 09/19/20 07:48 Chloride IVCONT 0 mg/hr .Q0M ELIZABETH 0 mls/hr Titration Protocol Per Protocol Lactated Ringer's 1,000 mls @ 20 mls/hr 09/19/20 09:15 Lr IVCONT .Q24H ELIZABETH Ondansetron HCl 4 mg 09/19/20 09:12 Ondansetron Hcl 4 Mg/2 Ml Vial IVPUSH ONCE PRN Nausea and Vomiting Pharmacy Consult 1 each 09/16/20 11:10 Consult Rx Perform Med Rec MISCELLANE ONCE PRN Consult order Sodium Chloride 3 ml 09/16/20 16:00 09/19/20 07:44 0.9 % Sodium Chloride Flush 3 Ml Syringe IVFLUSH Not Given QSHIFT ELIZABETH <MAGO Zhu - Last Filed: 09/19/20 11:35> Time Spent With Patient Time: Total time spent is greater than 50% in coordination of care (as documented) at patient's floor/unit and/or counseling patient: 22 <MAGO Zhu - Last Filed: 09/19/20 11:35> Time with patient: 15 - 24 minutes <MAGO Zhu - Last Filed: 09/19/20 11:35> Procedures Date of Service Date of Service: 09/19/20 <MAGO Zhu - Last Filed: 09/19/20 11:35>
--- NOTE | 2020-09-19 10:29 | ECG_ITS ---
Test Reason : S/P CARDIOVERSION Blood Pressure : / mmHG Vent. Rate : 089 BPM Atrial Rate : 089 BPM P-R Int : 182 ms QRS Dur : 082 ms QT Int : 382 ms P-R-T Axes : 051 -39 -43 degrees QTc Int : 464 ms Normal sinus rhythm Left atrial enlargement Left axis deviation Inferior infarct (cited on or before 16-SEP-2020) T wave abnormality, consider lateral ischemia Abnormal ECG When compared with ECG of 16-SEP-2020 08:54, Sinus rhythm has replaced Atrial fibrillation Inverted T waves have replaced nonspecific T wave abnormality in Inferior leads Inverted T waves have replaced nonspecific T wave abnormality in Lateral leads Referred By: Rizwan Akhtar Electronically Signed By:Rizwan Akhtar
[2020-09-19] MEDS: Furosemide 40 MG TABLET PO (11:44)
[2020-09-19] MEDS: Losartan Potassium 25 MG TABLET PO (13:02)
[2020-09-19] MEDS: Amiodarone HCL 200 MG TABLET 400 MG PO ×2 (13:03→21:19)
--- NOTE | 2020-09-19 13:30 | MHC.CM.PN ---
per rounds dc expected plan remains home no services
[2020-09-19] MEDS: Acetaminophen 325 MG TABLET 650 MG PO (14:57)
[2020-09-19] MEDS: 0.9 % Sodium Chloride Flush 3 ML SYRINGE IVFLUSH ×2 (14:58→21:20)
--- NOTE | 2020-09-19 15:14 | HO.PM.IMPN ---
Subjective Subjective Date of Service: 09/19/20 Interval History: the patient was seen and evaluated this morning Laying in bed, feels comfortable Denies any fever, chills or chest pain Cardioversion done in the morning with good response, patient developed a flutter regain after coming back to the floor No reported other overnight events. Systemic review: No fever, chills or weakness No chest pain, palpitation No shortness of breath or coughing No abdominal pain, nausea or vomiting No urinary symptoms No any rash or wounds Physical Exam Vital Signs: Vital Signs: Last Vital Signs Temp 98 F 09/19/20 15:00 Pulse 104 H 09/19/20 15:00 Resp 17 09/19/20 15:00 BP 126/89 09/19/20 15:00 Pulse Ox 97 09/19/20 15:00 Body Mass Index 27.8 Const: Other: Constitutional : Alert, oriented, not in distress Neck : Normal inspection, Supple Cardiovascular : Irregular irregular, S1 S2, no lower extremity edema Respiratory : Good bilateral air entry, no crackles, wheezes or rhonchi Gastrointestinal: soft, lax, Normal bowel sounds, Non tender Skin : Warm/Dry, No rash Neurological : Alert & oriented x3, No focal deficit Objective Data Current Medications Generic Name Dose Route Start Last Admin Trade Name Freq PRN Reason Stop Dose Admin Acetaminophen 650 mg 09/16/20 12:52 09/19/20 14:57 Acetaminophen 325 Mg Tablet PO 650 mg Q6H PRN Administration pain Amiodarone HCl 400 mg 09/19/20 12:00 09/19/20 13:03 Amiodarone Hcl 200 Mg Tablet PO 400 mg BID ELIZABETH Administration Apixaban 5 mg 09/17/20 10:00 09/19/20 08:41 Apixaban 5 Mg Tablet PO 5 mg BID ELIZABETH Administration Furosemide 40 mg 09/19/20 09:00 09/19/20 11:44 Furosemide 40 Mg Tablet PO 40 mg DAILY ELIZABETH Administration Protocol Lactated Ringer's 1,000 mls @ 20 mls/hr 09/19/20 09:15 09/19/20 11:21 Lr IVCONT Not Given .Q24H ELIZABETH Losartan Potassium 25 mg 09/19/20 12:00 09/19/20 13:02 Losartan Potassium 25 Mg Tablet PO 25 mg DAILY ELIZABETH Administration Protocol Ondansetron HCl 4 mg 09/19/20 09:12 Ondansetron Hcl 4 Mg/2 Ml Vial IVPUSH ONCE PRN Nausea and Vomiting Pharmacy Consult 1 each 09/16/20 11:10 Consult Rx Perform Med Rec MISCELLANE ONCE PRN Consult order Sodium Chloride 3 ml 09/16/20 16:00 09/19/20 14:58 0.9 % Sodium Chloride Flush 3 Ml Syringe IVFLUSH 3 ml QSHIFT ELIZABETH Administration Labs CBC & Chem 7: 09/18/20 05:37 09/18/20 05:37 Assessment and Plan (1) New onset a-fib: Status: Acute Assessment and Plan: 54F presented with sob, found to have new onset afib new onset atrial flutter Patient had failed cardioversion this morning with TERRY Start amiodarone b.i.d. Discontinue Cardizem Keep NPO after midnight for possible cardioversion again tomorrow Cardiology input appreciated Started on Eliquis acute chf follow up echo echo showing decreased EF of 30-35% Continue p.o. Lasix Monitor intake and output undiagnosed HTN Start losartan DVT PPX Eliquis
--- NOTE | 2020-09-19 16:44 | HO.CARDIVERS ---
Cardioversion Procedure Note Cardioversion Date of Procedure: 09/19/2020 Ordering Provider: Rizwan Akhtar Performing Provider: Rizwan Akhtar Indication for Procedure: Atrial fibrillation Pre-Op Diagnosis: Atrial fibrillation Post-Op Diagnosis: Atrial fibrillation Performed with Transesophageal Echo: Yes TERRY findings (if TERRY Performed): No left atrial appendage clot was noticed. History: 54-year-old female with AFib with RVR, congestive heart failure and cardiomyopathy. Consent: Verbal and Written consent was obtained from the patient before starting. The patient was made aware of the risk of stroke and esophageal injury. Procedure: After consent obtained, defib pads were attached and the patient was sedated by the anesthesia team. Once adequate sedation achieved, patient was given 1 shock of 200 joules. This converted her into atrial flutter at 140 beats per minute. We gave her a 2nd shock of 200 joules which reverted her to sinus rhythm. She remained sinus after that and was left with Anesthesia in and stable condition for recovery. Complications: None Recommendations: We will start patient on amiodarone for rhythm control strategy.
[2020-09-19] MEDS: Metoprolol Tartrate 5 MG/5 ML VIAL IVPUSH (22:53)
--- NOTE | 2020-09-19 23:30 | PC.NURSE ---
2200 pt's heart rate remaining in the 140's. notified.stat ekg done .showed supraventricular tachycardia with occasional pvc's heart rate 140. notified. in to see pt.pt medicated at 2253 with lopressor 5mg iv given by jyoti,the clinical cordinator.repeat ekg done at 2330 heart rate down to 127. notified.
[2020-09-20] VITALS (12 sets, daily range): BP systolic 122–160; BP diastolic 60–103; PULSE 88–128; RESP 16–20; TEMP 36.4–37.1; O2SAT 94–98
--- NOTE | 2020-09-20 | ECG_ITS ---
Test Reason : rhythm Blood Pressure : / mmHG Vent. Rate : 105 BPM Atrial Rate : 105 BPM P-R Int : 194 ms QRS Dur : 084 ms QT Int : 352 ms P-R-T Axes : 059 -35 -06 degrees QTc Int : 465 ms Sinus tachycardia Possible Left atrial enlargement Left axis deviation Inferior infarct , age undetermined Abnormal ECG When compared to the previous EKG of Sinus rhytm has replaced SVT Referred By: Anuel Fierro Electronically Signed By:Rizwan Akhtar
--- NOTE | 2020-09-20 00:27 | PM.EVENT ---
Event Note Date of Service: 09/20/20 Event Note: Patient developed tachycardia around 11:00 p.m.. Heart rate in the 140s. EKG showed SVT with PVCs. 5 mg of IV metoprolol was given, patient subsequently converted to sinus rhythm around 12:30 with heart rate remaining in 100-110. [place] mg of IV Cardizem given. Will repeat EKG. Cardiology following patient
--- NOTE | 2020-09-20 00:30 | MHC.PIE ---
P.CONVERTED TO SR I.PT HR CONVERTED TO SR,HR 100,STAT EKG DONE TO CONFIRM. UPDATED.ORDER GIVEN TO STILL GIVE CARDIZEM 5MG IV THAT WAS PREVIOUSLY ORDERED.PT UPDATED AND MED GIVEN. E.CONT TO MONITOR.
[2020-09-20] MEDS: dilTIAZem HCL 50 MG/10 ML VIAL IVPUSH (00:31)
--- NOTE | 2020-09-20 01:00 | MHC.PIE ---
P.AFIB I.PT RHYTHM BACK IN AFIB HR 120'S AND HAD A COUPLE 3 BEAT VTACH.REMAINS ASYMPTOMATIC. UPDATED.ORDER FOR STAT BMP AMD MG LEVEL.PT UPDATED. E.CONT TO MONITOR.
[2020-09-20] MEDS: diphenhydrAMINE HCL 50 MG/ML VIAL 25 MG IVPUSH (01:09)
[2020-09-20 01:55] LABS: Anion Gap 10 (12-20); Blood Urea Nitrogen 15 mg/dL (9-16); Calcium 8.5 mg/dL (8.4-10.2); Carbon Dioxide 33 mmol/L (22-29); Chloride 101 mmol/L (96-108); Creatinine Clr Calc Pharmacy 66.7; Estimated Glomerular Filt Rate 48; Glucose Random 112 mg/dL (60-115); Magnesium 1.7 mg/dL (1.6-2.6); Potassium 3.6 mmol/L (3.3-5.1); Sodium 140 mmol/L (135-145)
--- NOTE | 2020-09-20 02:38 | MHC.PIE ---
P.5 BEAT VTACH I.PT NOW WITH 5 BEAT VTACH,ASYMPTOMATIC.ALSO HAS BEEN GOING IN AND OUT OF AFIB AND SR.LABS DONE THAT WERE ORDERED. UPDATED AND GIVEN LAB RESULTS.NO NEW ORDERS AT THIS TIME. E.CONT TO MONITOR.
[2020-09-20 06:45] LABS: Hematocrit 41.7 % (37-47); Hemoglobin 13.2 g/dl (12.0-16.0); Mean Corpuscular HGB Conc 31.7 g/dl (31.0-35.0); Mean Corpuscular Volume 88.5 fL (80-98); Mean Platelet Volume 11.1 fL (9.4-12.3); Platelet Count 254 X10*3/uL (160-400); Red Blood Count 4.71 X10*6/uL (4.20-5.50); Red Cell Distribution Width 12.8 % (11.0-16.0); White Blood Count 5.2 X10*3/uL (4.8-10.8)
[2020-09-20 07:01] LABS: Anion Gap 10 (12-20); Blood Urea Nitrogen 13 mg/dL (9-16); Calcium 8.5 mg/dL (8.4-10.2); Carbon Dioxide 31 mmol/L (22-29); Chloride 104 mmol/L (96-108); Estimated Glomerular Filt Rate 51; Glucose Random 89 mg/dL (60-115); Sodium 141 mmol/L (135-145)
--- NOTE | 2020-09-20 08:00 | ECG_ITS ---
Test Reason : new to amiodarone Blood Pressure : / mmHG Vent. Rate : 126 BPM Atrial Rate : 108 BPM P-R Int : 000 ms QRS Dur : 120 ms QT Int : 348 ms P-R-T Axes : 000 -38 -44 degrees QTc Int : 504 ms SVT vs atrial flutter Left axis deviation Inferior infarct , age undetermined Abnormal ECG When compared to the previous EKG of SVT present Referred By: Anuel Fierro Electronically Signed By:Rizwan Akhtar
[2020-09-20] MEDS: Amiodarone HCL 200 MG TABLET 400 MG PO ×2 (08:58→19:40)
[2020-09-20] MEDS: Furosemide 40 MG TABLET PO (08:59)
[2020-09-20] MEDS: Losartan Potassium 25 MG TABLET PO (08:59)
[2020-09-20] MEDS: 0.9 % Sodium Chloride Flush 3 ML SYRINGE IVFLUSH ×2 (08:59→16:44)
[2020-09-20] MEDS: Apixaban 5 MG TABLET PO ×2 (08:59→19:41)
[2020-09-20] MEDS: Metoprolol Succinate ER 25 MG TAB.ER.24H PO (11:14)
--- NOTE | 2020-09-20 14:05 | HO.PM.IMPN ---
Subjective Subjective Date of Service: 09/20/20 Interval History: the patient was seen and evaluated this morning Laying in bed, feels comfortable overall and denying any feeling of palpitation Heart rhythm went into atrial flutter, back to sinus and kept fluctuating between the overnight Denies any fever, chills or chest pain No reported other overnight events. Systemic review: No fever, chills or weakness No chest pain, palpitation No shortness of breath or coughing No abdominal pain, nausea or vomiting No urinary symptoms No any rash or wounds Physical Exam Vital Signs: Vital Signs: Last Vital Signs Temp 97.9 F 09/20/20 11:45 Pulse 98 09/20/20 11:45 Resp 20 09/20/20 11:45 BP 140/60 H 09/20/20 11:45 Pulse Ox 96 09/20/20 11:45 Body Mass Index 27.8 Const: Other: Constitutional : Alert, oriented, not in distress Neck : Normal inspection, Supple Cardiovascular : Irregular irregular, S1 S2, no lower extremity edema Respiratory : Good bilateral air entry, no crackles, wheezes or rhonchi Gastrointestinal: soft, lax, Normal bowel sounds, Non tender Skin : Warm/Dry, No rash Neurological : Alert & oriented x3, No focal deficit Objective Data Current Medications Generic Name Dose Route Start Last Admin Trade Name Freq PRN Reason Stop Dose Admin Acetaminophen 650 mg 09/16/20 12:52 09/19/20 14:57 Acetaminophen 325 Mg Tablet PO 650 mg Q6H PRN Administration pain Amiodarone HCl 400 mg 09/19/20 12:00 09/20/20 08:58 Amiodarone Hcl 200 Mg Tablet PO 400 mg BID ELIZABETH Administration Apixaban 5 mg 09/17/20 10:00 09/20/20 08:59 Apixaban 5 Mg Tablet PO 5 mg BID ELIZABETH Administration Furosemide 40 mg 09/19/20 09:00 09/20/20 08:59 Furosemide 40 Mg Tablet PO 40 mg DAILY ELIZABETH Administration Protocol Losartan Potassium 25 mg 09/19/20 12:00 09/20/20 08:59 Losartan Potassium 25 Mg Tablet PO 25 mg DAILY ELIZABETH Administration Protocol Metoprolol Succinate 25 mg 09/20/20 10:00 09/20/20 11:14 Metoprolol Succinate Er 25 Mg Tab.Er.24h PO 25 mg DAILY ELIZABETH Administration Protocol Ondansetron HCl 4 mg 09/19/20 09:12 Ondansetron Hcl 4 Mg/2 Ml Vial IVPUSH ONCE PRN Nausea and Vomiting Pharmacy Consult 1 each 09/16/20 11:10 Consult Rx Perform Med Rec MISCELLANE ONCE PRN Consult order Sodium Chloride 3 ml 09/16/20 16:00 09/20/20 08:59 0.9 % Sodium Chloride Flush 3 Ml Syringe IVFLUSH 3 ml QSHIFT ELIZABETH Administration Labs CBC & Chem 7: 09/20/20 05:26 09/20/20 05:26 Assessment and Plan (1) New onset a-fib: Status: Acute Assessment and Plan: 54F presented with sob, found to have new onset afib new onset atrial flutter Patient had failed cardioversion this morning with TERRY Continue amiodarone b.i.d. Start metoprolol p.o. Discontinue Cardizem Cardiology input appreciated Continue on Eliquis Keep on telemetry acute chf follow up echo echo showing decreased EF of 30-35% Continue p.o. Lasix Monitor intake and output undiagnosed HTN Start losartan DVT PPX Eliquis
--- NOTE | 2020-09-20 15:19 | P.PNCA_ITS ---
Subjective Subjective Date of Service: 09/20/20 <MAGO Zhu - Last Filed: 09/20/20 15:31> 09/20/20 <Rizwan Akhtar MD - Last Filed: 09/20/20 18:43> Principal diagnosis: atrial fibrillation, uncontrolled HTN, CHF on admit <MAGO Zhu - Last Filed: 09/20/20 15:31> Interval history: Cardiology follow up for the above. Seen at 1100. Today she reports feeling well overall. She is not noticing heart palpitations. No chest pains, sob, lightheadedness. No longer has leg edema. Has been up to the bathroom and is steady on her feet. No signs of bleeding. <MAGO Zhu - Last Filed: 09/20/20 15:31> Review of Systems Review of Systems as above <MAGO Zhu - Last Filed: 09/20/20 15:31> Yes all other systems are reviewed and are negative <MAGO Zhu - Last Filed: 09/20/20 15:31> Physical Exam Vital Signs: Last Vital Signs Temp 97.6 F 09/20/20 15:06 Pulse 120 H 09/20/20 15:06 Resp 18 09/20/20 15:06 BP 132/97 H 09/20/20 15:06 Pulse Ox 94 09/20/20 15:06 Body Mass Index 27.8 <MAGO Zhu - Last Filed: 09/20/20 15:31> Const General: cooperative, no acute distress, alert and awake <MAGO Zhu - Last Filed: 09/20/20 15:31> Orientation/consciousness: patient oriented x3 <MAGO Zhu - Last Filed: 09/20/20 15:31> Neck Neck: Yes normal visual inspection and Yes no JVD <MAGO Zhu Last Filed: 09/20/20 15:31> Carotids: carotid upstroke abnormal <MAGO Zhu - Last Filed: 09/20/20 15:31> Resp Effort & Inspection: normal respiratory effort, able to speak in complete sentences and not labored <Shana Suero NP-C - Last Filed: 09/20/20 15:31> Auscultation: clear to auscultation bilaterally, no crackles, no rales, no rhonchi and no wheezes <Shana Suero NP-C - Last Filed: 09/20/20 15:31> Cardio Palpation: normal PMI <Shana Suero NP-C - Last Filed: 09/20/20 15:31> Rate: regular rate <Shana Suero NP-C - Last Filed: 09/20/20 15:31> Rhythm: regular rhythm <Shana Suero NP-C - Last Filed: 09/20/20 15:31> Heart sounds: S1 normal heart sound present and S2 normal heart sound present <Shana Suero CARBURIZING FURNACE OPERATOR-C - Last Filed: 09/20/20 15:31> Peripheral pulses: Peripheral pulses 2+ throughout <Shana Suero CARBURIZING FURNACE OPERATOR-C - Last Filed: 09/20/20 15:31> GI Inspection: Yes normal to inspection <Shana Suero NP-C - Last Filed: 09/20/20 15:31> Neuro General: patient oriented x3 <Shana Suero NP-C - Last Filed: 09/20/20 15:31> Extrem General: Yes normal to inspection and No edema <Shana Suero CARBURIZING FURNACE OPERATOR-C - Last Filed: 09/20/20 15:31> Results Labs and Meds Result diagrams: : 09/20/20 05:26 09/20/20 05:26 <Shana SueroREHAN-C - Last Filed: 09/20/20 15:31> Lab results: Laboratory Results - last 24 hr 09/20/20 09/20/20 09/20/20 01:19 05:26 05:26 WBC 5.2 RBC 4.71 Hgb 13.2 Hct 41.7 MCV 88.5 MCH 28.0 MCHC 31.7 RDW 12.8 Plt Count 254 MPV 11.1 Absolute Nucleated RBC 0.000 Nucleated RBC % (auto) 0.0 Sodium 140 141 Potassium 3.6 4.0 Chloride 101 104 Carbon Dioxide 33 H 31 H Anion Gap 10 L 10 L BUN 15 13 Creatinine 1.17 1.10 Estim Creat Clear Calc 66.7 71.0 Estimated GFR 48 51 Random Glucose 112 89 Calcium 8.5 8.5 Magnesium 1.7 B-Natriuretic Peptide 09/20/20 05:26 WBC RBC Hgb Hct MCV MCH MCHC RDW Plt Count MPV Absolute Nucleated RBC Nucleated RBC % (auto) Sodium Potassium Chloride Carbon Dioxide Anion Gap BUN Creatinine Estim Creat Clear Calc Estimated GFR Random Glucose Calcium Magnesium B-Natriuretic Peptide Cancelled <MAGO Zhu - Last Filed: 09/20/20 15:31> Progress Note: A&P Assessment and plan (1) New onset a-fib: Status: Acute <MAGO Zhu - Last Filed: 09/20/20 15:31> Assessment and Plan: Presented with sob. Found to have new afib. Initially treated with Diltiazem for rate control. CXR showed moderate cardiomegaly. Echo 09/18 showed EF 30-35%, mod to severe LVH, LA moderately dilated, mod increase in RA pressure, mild pulm edema. Given IV Lasix with improvement in breathing, now on PO Lasix. CHADSVASc 3. Now on Eliquis for anticoagulation. Underwent TERRY CVR yesterday with conversion to aflutter then, to SR. Has had recurrent PAF since that time. Tolerating without symptoms currently. Was started on Amiodarone load yesterday. Continue Amiodarone 400mg bid for 2 weeks, then have her reduce to 200mg daily. Started on metoprolol xl 25mg daily today to help with heart rate control and cardiomyopathy. Continue Eliquis. She can be discharged from cardiology perspective. We will arrange for outpt cardiology follow up and for referral to EP for afib ablation. Pt is agreeable to this plan. <MAGO Zhu - Last Filed: 09/20/20 15:31> (2) Atrial fibrillation with rapid ventricular response: Status: Acute <MAGO Zhu - Last Filed: 09/20/20 15:31> (3) Acute CHF: Status: Acute <MAGO Zhu - Last Filed: 09/20/20 15:31> Assessment and Plan: BNP elevated at 1315 and with SOB on admit. Echo showed reduced EF. CMP may be related to uncontrolled afib rates vs uncontrolled HTN. Afib rates now better controlled. BP had been 190/100 and now 132/97 with lasix, losartan use. Metoprolol added today. Fluid balance remains +, unclear if accurate. On exam she does not appear fluid overloaded. Will continue Losartan and Metoprolol xl for neurohormonal modulation. Continue daily lasix with her CMP, PAF. BUN and Cr are normal. <MAGO Zhu - Last Filed: 09/20/20 15:31> (4) Uncontrolled hypertension: Status: Acute <MAGO Zhu - Last Filed: 09/20/20 15:31> Assessment and Plan: as above. Had not been on meds at home. Echo has mod to severe LVH. Meds as above. <MAGO Zhu - Last Filed: 09/20/20 15:31> (5) HTN (hypertension): Status: Acute <MARILY ZhuC - Last Filed: 09/20/20 15:31> Fall Risk Details Current Medications: Current Medications Generic Name Dose Route Start Last Admin Trade Name Freq PRN Reason Stop Dose Admin Acetaminophen 650 mg 09/16/20 12:52 09/19/20 14:57 Acetaminophen 325 Mg Tablet PO 650 mg Q6H PRN Administration pain Amiodarone HCl 400 mg 09/19/20 12:00 09/20/20 08:58 Amiodarone Hcl 200 Mg Tablet PO 400 mg BID ELIZABETH Administration Apixaban 5 mg 09/17/20 10:00 09/20/20 08:59 Apixaban 5 Mg Tablet PO 5 mg BID ELIZABETH Administration Furosemide 40 mg 09/19/20 09:00 09/20/20 08:59 Furosemide 40 Mg Tablet PO 40 mg DAILY ELIZABETH Administration Protocol Losartan Potassium 25 mg 09/19/20 12:00 09/20/20 08:59 Losartan Potassium 25 Mg Tablet PO 25 mg DAILY ELIZABETH Administration Protocol Metoprolol Succinate 25 mg 09/20/20 10:00 09/20/20 11:14 Metoprolol Succinate Er 25 Mg Tab.Er.24h PO 25 mg DAILY ELIZABETH Administration Protocol Ondansetron HCl 4 mg 09/19/20 09:12 Ondansetron Hcl 4 Mg/2 Ml Vial IVPUSH ONCE PRN Nausea and Vomiting Pharmacy Consult 1 each 09/16/20 11:10 Consult Rx Perform Med Rec MISCELLANE ONCE PRN Consult order Sodium Chloride 3 ml 09/16/20 16:00 09/20/20 08:59 0.9 % Sodium Chloride Flush 3 Ml Syringe IVFLUSH 3 ml QSHIFT ELIZABETH Administration <MAGO Zhu - Last Filed: 09/20/20 15:31> Time Spent With Patient Time: Total time spent is greater than 50% in coordination of care (as documented) at patient's floor/unit and/or counseling patient: 23 <MAGO Zhu - Last Filed: 09/20/20 15:31> Time with patient: 15 - 24 minutes <MAGO Zhu - Last Filed: 09/20/20 15:31> Procedures Date of Service Date of Service: 09/20/20 <MAGO Zhu - Last Filed: 09/20/20 15:31>
[2020-09-20] MEDS: Acetaminophen 325 MG TABLET 650 MG PO (21:34)
[2020-09-20] MEDS: Zolpidem Tartrate 5 MG TABLET PO (21:35)
[2020-09-21 03:17] VITALS: BP 115/75; PULSE 112; RESP 18; TEMP 36.8; O2SAT 96
--- NOTE | 2020-09-21 06:38 | HO.POSTANES ---
Post Anesthesia Evaluation Post Anesthesia Evaluation Vital Signs: Vital Signs Temp Pulse Resp BP Pulse Ox 09/21/20 03:17 98.3 F 112 H 18 115/75 96 09/20/20 23:36 98.6 F 88 18 133/84 97 09/20/20 19:40 120 H 148/100 H 09/20/20 19:15 98.0 F 120 H 16 148/100 H 98 Anesthesia: Monitored Mental Status: Awake Pain Control: Satisfactory Nausea/Vomiting: None Hydration: Adequate Anesthesia-Related Issues: No Anes. Related Issues
[2020-09-21 06:39] LABS: MANUAL DIFF FLAG NO
[2020-09-21 06:51] LABS: Basophils Percent Auto 0.8 % (0-2); Eosinophils Absolute Auto 0.7 X10*3/uL (0.0-0.4); Eosinophils Percent Auto 14.4 % (0-4); Hematocrit 44.1 % (37-47); Hemoglobin 13.8 g/dl (12.0-16.0); Imm Gran Abs Auto 0.01 X10*3/uL (0.00-0.03); Imm Gran Pct Auto 0.2 % (0.0-0.4); Lymphocytes Absolute Auto 2.4 X10*3/uL (1.2-4.9); Lymphocytes Percent Auto 48.7 % (20-40); Mean Corpuscular HGB Conc 31.3 g/dl (31.0-35.0); Mean Corpuscular Hemoglobin 28.2 pg (27.0-33.0); Mean Platelet Volume 10.9 fL (9.4-12.3); Monocytes Absolute Auto 0.4 X10*3/uL (0.1-1.2); Monocytes Percent Auto 8.4 % (2-11); Neutrophils Absolute Auto 1.3 X10*3/uL (2.0-8.3); Neutrophils Percent Auto 27.5 % (45-73); Platelet Count 266 X10*3/uL (160-400); Red Cell Distribution Width 12.8 % (11.0-16.0); White Blood Count 4.9 X10*3/uL (4.8-10.8)
[2020-09-21 06:53] VITALS: BP 119/88; PULSE 110; RESP 18; TEMP 35.5; O2SAT 98
[2020-09-21 07:15] LABS: Anion Gap 12 (12-20); Blood Urea Nitrogen 18 mg/dL (9-16); Calcium 8.9 mg/dL (8.4-10.2); Carbon Dioxide 32 mmol/L (22-29); Chloride 103 mmol/L (96-108); Estimated Glomerular Filt Rate 46; Glucose Random 92 mg/dL (60-115); Potassium 4.5 mmol/L (3.3-5.1); Sodium 142 mmol/L (135-145)
[2020-09-21] MEDS: Amiodarone HCL 200 MG TABLET 400 MG PO (07:41)
[2020-09-21] MEDS: Metoprolol Succinate ER 25 MG TAB.ER.24H PO (07:42)
[2020-09-21] MEDS: Losartan Potassium 25 MG TABLET PO (07:42)
[2020-09-21] MEDS: Apixaban 5 MG TABLET PO (07:42)
[2020-09-21] MEDS: 0.9 % Sodium Chloride Flush 3 ML SYRINGE IVFLUSH ×2 (07:43→09:16)
[2020-09-21] MEDS: Furosemide 40 MG TABLET PO (07:43)
[2020-09-21] MEDS: Metoprolol Succinate ER 50 MG TAB.ER.24H PO (09:15)
--- NOTE | 2020-09-21 09:54 | PM.PNCARD ---
Subjective Subjective Date of Service: 09/22/20 Principal diagnosis: Afib, cardiomyopathy Interval history: Doing well. No palpitations. compensated clinically. Had atrial flutter overnight for few hours. No symptoms. Physical Exam Vital Signs: Last Vital Signs Temp 96 F L 09/21/20 06:53 Pulse 110 H 09/21/20 06:53 Resp 18 09/21/20 06:53 BP 119/88 09/21/20 06:53 Pulse Ox 98 09/21/20 06:53 Body Mass Index 27.8 GENERAL APPEARANCE: in no acute distress, pleasant. NECK: no carotid bruit, no jugular venous distention. SKIN: no suspicious lesions, warm and dry. HEART: no murmurs, regular rate and rhythm. LUNGS: clear to auscultation bilaterally. ABDOMEN: soft, nontender. EXTREMITIES: no edema. PERIPHERAL PULSES: equal. NEUROLOGIC: No gross deficits, AAO X 3 Results Labs and Meds Result diagrams: 09/21/20 05:12 09/21/20 05:12 Lab results: Laboratory Results - last 24 hr 09/20/20 09/21/20 09/21/20 05:26 05:12 05:12 WBC 4.9 RBC 4.90 Hgb 13.8 Hct 44.1 MCV 90.0 MCH 28.2 MCHC 31.3 RDW 12.8 Plt Count 266 MPV 10.9 Immature Gran % (Auto) 0.2 Neut % (Auto) 27.5 L Lymph % (Auto) 48.7 H [place] % (Auto) 8.4 Eos % (Auto) 14.4 H Baso % (Auto) 0.8 Lymph # (Auto) 2.4 [place] # (Auto) 0.4 Eos # (Auto) 0.7 H Baso # (Auto) 0.0 Abs Immat Gran (auto) 0.01 Absolute Neuts (auto) 1.3 L Absolute Nucleated RBC 0.000 Nucleated RBC % (auto) 0.0 Sodium 142 Potassium 4.5 Chloride 103 Carbon Dioxide 32 H Anion Gap 12 BUN 18 H Creatinine 1.20 Estim Creat Clear Calc 65.0 Estimated GFR 46 Random Glucose 92 Calcium 8.9 B-Natriuretic Peptide Cancelled Progress Note: A&P Assessment and plan (1) Cardiomyopathy: Status: Acute (2) Uncontrolled hypertension: Status: Acute Assessment and Plan: Pleasant 54 year female with new onset atrial fibrillation, congestive heart failure and cardiomyopathy. She is status post cardioversion. She has been in and out of atrial flutter. Denies any symptoms while she was in atrial flutter. Clinically compensated. Blood pressure control is much better. I think she can go home. Continue amiodarone load for approximately 10 days and then drop the dose to 200 mg once a day. She is on Eliquis for anticoagulation which should not be interrupted. Agree with same dose losartan and metoprolol succinate. Thank you for allowing me to participate in the care of your patient. Please feel free to contact me if you have any questions. Fall Risk Details Current Medications: Current Medications Generic Name Dose Route Start Last Admin Trade Name Freq PRN Reason Stop Dose Admin Acetaminophen 650 mg 09/16/20 12:52 09/20/20 21:34 Acetaminophen 325 Mg Tablet PO 650 mg Q6H PRN Administration pain Amiodarone HCl 400 mg 09/19/20 12:00 09/21/20 07:41 Amiodarone Hcl 200 Mg Tablet PO 400 mg BID ELIZABETH Administration Apixaban 5 mg 09/17/20 10:00 09/21/20 07:42 Apixaban 5 Mg Tablet PO 5 mg BID ELIZABETH Administration Furosemide 40 mg 09/19/20 09:00 09/21/20 07:43 Furosemide 40 Mg Tablet PO 40 mg DAILY ELIZABETH Administration Protocol Losartan Potassium 25 mg 09/19/20 12:00 09/21/20 07:42 Losartan Potassium 25 Mg Tablet PO 25 mg DAILY ELIZABETH Administration Protocol Metoprolol Succinate 50 mg 09/21/20 09:00 09/21/20 09:15 Metoprolol Succinate Er 50 Mg Tab.Er.24h PO 25 mg DAILY ELIZABETH Administration Protocol Ondansetron HCl 4 mg 09/19/20 09:12 Ondansetron Hcl 4 Mg/2 Ml Vial IVPUSH ONCE PRN Nausea and Vomiting Pharmacy Consult 1 each 09/16/20 11:10 Consult Rx Perform Med Rec MISCELLANE ONCE PRN Consult order Sodium Chloride 3 ml 09/16/20 16:00 09/21/20 09:16 0.9 % Sodium Chloride Flush 3 Ml Syringe IVFLUSH 3 ml QSHIFT ELIZABETH Administration Zolpidem Tartrate 5 mg 09/20/20 20:21 09/20/20 21:35 Zolpidem Tartrate 5 Mg Tablet PO 5 mg BEDTIME PRN Administration Insomnia Time Spent With Patient Time: Total time spent is greater than 50% in coordination of care (as documented) at patient's floor/unit and/or counseling patient: Time with patient: 15 - 24 minutes Procedures Date of Service Date of Service: 09/21/20
[2020-09-21 11:03] VITALS: BP 127/85; PULSE 84; RESP 20; TEMP 36.1; O2SAT 98
--- NOTE | 2020-09-21 11:03 | P.DS_ITS ---
DS: Providers Provider Date of Service: 09/21/20 Date of admission: 09/16/20 11:46 Primary care physician: None Physician Consults: 09/16/20 11:49 Consult to Cardiology Routine Consulting Provider: Maco Duncan Reason for consultation: new afib, chf DS: Diagnosis Discharge Diagnosis (1) New onset a-fib: Status: Acute (2) Atrial fibrillation with rapid ventricular response: Status: Acute (3) Acute CHF: Status: Acute (4) Uncontrolled hypertension: Status: Acute (5) HTN (hypertension): Status: Acute DS: Medications Discharge Medications Home Medications: Previous Rx's Medication Instructions Recorded amiodarone 400 mg PO BID 60 Days #240 tab 09/21/20 apixaban [Eliquis] 5 mg PO BID 30 Days #60 tab 09/21/20 furosemide 40 mg PO DAILY 30 Days #30 tab 09/21/20 losartan 25 mg PO DAILY 30 Days #30 tab 09/21/20 metoprolol succinate 50 mg PO DAILY 30 Days #30 tab 09/21/20 DS: Summary Hospital Course Hospital Course: Admission note HPI 54-year-old female presented with 2 weeks of shortness of breath. Patient states that prior to 2 weeks ago she was feeling in good health. She then started to notice shortness of breath, worse on exertion, orthopnea, increasing lower extremity edema. She was relieved by rest. She denies any palpitations, chest pain, fever chills. She denies any history of arrhythmia or CHF. She is not on any home meds and has no noted medical history. She denies any symptoms of sleep apnea, denies alcohol, denies caffeine. In the ED, EKG showed atrial f ibrillation at 129, chest x-ray showed moderate cardiomegaly with normal pulmonary vascularity, BNP elevated at 1315, TSH 1.75. Patient was given 40 mg of IV Lasix and started on Cardizem. Hospital course The patient was admitted to hospital for tree new onset atrial fibrillation/flutter that was noted telemetry time of admission. Started on IV Cardizem on time of presentation with some response. Evaluated by Cardiology team who did a TERRY with cardioversion that was successful at 1st but then the patient converted to atrial flutter. Cardizem discontinued and she was started on metoprolol as an echo showed decreased ejection fraction to 30-35%. Amiodarone was added and loaded for control of her symptoms. She was converted back to sinus rhythm on September 20 and maintained in sinus since then until time of discharge. She was started on Eliquis after discussing is possible outcomes and side effects. She was treated as well for CHF exacerbation with IV Lasix with good response as her dyspnea on exertion resolved. To be discharged on p.o. Lasix. She was also noted to have significantly elevated blood pressure readings. Started on losartan with fair response. Time Spent with Patient Time attestation: Total time spent providing and/or coordinating discharge services: Discharge coordination time: Greater than 30 minutes Quality: Stroke Does the patient have a stroke diagnosis?: No Physical Exam Vital Signs: Vital Signs: Last Vital Signs Temp 96 F L 09/21/20 06:53 Pulse 110 H 09/21/20 06:53 Resp 18 09/21/20 06:53 BP 119/88 09/21/20 06:53 Pulse Ox 98 09/21/20 06:53 Body Mass Index 27.8 Const: Other: Constitutional : Alert, oriented, not in distress Neck : Normal inspection, Supple Cardiovascular : Regular regular, S1 S2, no lower extremity edema Respiratory : Good bilateral air entry, no crackles, wheezes or rhonchi Gastrointestinal: soft, lax, Normal bowel sounds, Non tender Skin : Warm/Dry, No rash Neurological : Alert & oriented x3, No focal deficit DS: Data Data Completed and Pending Labs on day of discharge: Laboratory Results - last 24 hr 09/21/20 09/21/20 05:12 05:12 WBC 4.9 RBC 4.90 Hgb 13.8 Hct 44.1 MCV 90.0 MCH 28.2 MCHC 31.3 RDW 12.8 Plt Count 266 MPV 10.9 Immature Gran % (Auto) 0.2 Neut % (Auto) 27.5 L Lymph % (Auto) 48.7 H [place] % (Auto) 8.4 Eos % (Auto) 14.4 H Baso % (Auto) 0.8 Lymph # (Auto) 2.4 [place] # (Auto) 0.4 Eos # (Auto) 0.7 H Baso # (Auto) 0.0 Abs Immat Gran (auto) 0.01 Absolute Neuts (auto) 1.3 L Absolute Nucleated RBC 0.000 Nucleated RBC % (auto) 0.0 Sodium 142 Potassium 4.5 Chloride 103 Carbon Dioxide 32 H Anion Gap 12 BUN 18 H Creatinine 1.20 Estim Creat Clear Calc 65.0 Estimated GFR 46 Random Glucose 92 Calcium 8.9 Discharge Plan Discharge Patient Disposition: Home, Self-Care Discharge Diagnosis: New onset atrial fibrillation Acute heart failure Uncontrolled hypertension Referrals: Physician,None [Primary Care Provider] - 1 Week Discharge Medications: New furosemide 40 mg Tablet 40 mg PO DAILY 30 Days Qty: 30 RF: 0 amiodarone 200 mg Tablet 400 mg PO BID 60 Days Qty: 240 RF: 0 metoprolol succinate 50 mg Tablet Extended Release 24 Hr 50 mg PO DAILY 30 Days Qty: 30 RF: 0 losartan 25 mg Tablet 25 mg PO DAILY 30 Days Qty: 30 RF: 0 Eliquis 5 mg Tablet 5 mg PO BID 30 Days Qty: 60 RF: 0 Discharge Orders: Discharge Order (Routine); Ordered 09/21/20 Ordered By: Kya Caldera Diet: advance to usual diet and low salt diet Activity on Discharge: As tolerated Stand Alone Forms: Patient Portal Discharge page Care Plan Goals: Read below Health Concerns: Read below Plan of Treatment: Admitted to the hospital for evaluation of palpitation and difficulty breathing. Found to be on new onset irregular heart rhythm called atrial fibrillation that was controlled with IV and oral medications. Your blood work and image of the chest were concerning for fluid overload cold heart failure. An echo was done showing reducing the function of your heart. You were evaluated by apple press operator who adjusted your medications with good response. Your symptoms improved significantly. Plan to continue current medications at home. Assessment: Start amiodarone 400 mg twice Daily Start metoprolol, losartan and Lasix Start Eliquis as a blood thinner To follow up with Cardiology as outpatient as planned
--- NOTE | 2020-09-21 11:10 | MHC.CM.PN ---
pt dcd home no skilled services ordered by
== END 2020-09-21 12:59 | disposition home or self-care (01) | DRG 194 ==
LOC: HO.ED 11:53 → HO.EDOVER 12:00 → HO.IMC 12:01
PROVIDERS: Internal Medicine; Internal Medicine Cardiovascular Disease; Admitting Provider Internal Medicine; Emergency Provider Physician Assistant; Visit Provider Student in an Organized Health Care Education/Training Program
PROC: 5A2204Z Restoration of Cardiac Rhythm, Single (ICD-10-PCS; principal; 2020-09-19 11:40)
DX: I11.0 Hypertensive heart disease with heart failure (principal); I42.9 Cardiomyopathy, unspecified; Z79.01 Long term (current) use of anticoagulants; I50.9 Heart failure, unspecified; I48.91 Unspecified atrial fibrillation; Z20.822 Contact with and (suspected) exposure to COVID-19; Z87.891 Personal history of nicotine dependence; R00.0 Tachycardia, unspecified; Z79.899 Other long term (current) drug therapy
CPT/HCPCS: 36415; 71045; 80048; 80076; 83735; 83880; 84443; 84484; 85025; 85027; 85610; 85730; 87635; 92960; 93005; 93306; 93312; 96374; 96375; 99285; 99291; J1200; J1650; J1940; J2250; J3010; J3475

== ENCOUNTER 2020-10-10 09:05 | Outpatient (REF) | payer MEDICAID, SELFPAY ==
[2020-10-10 10:44] LABS: Anion Gap 12 (12-20); Blood Urea Nitrogen 20 mg/dL (9-16); Calcium 9.7 mg/dL (8.4-10.2); Carbon Dioxide 30 mmol/L (22-29); Chloride 101 mmol/L (96-108); Estimated Glomerular Filt Rate 47; Glucose Random 92 mg/dL (60-115); Potassium 4.9 mmol/L (3.3-5.1); Sodium 138 mmol/L (135-145)
== END 2020-10-10 09:06 | disposition home or self-care (01) ==
LOC: HO.LAB 09:05
PROVIDERS: Visit Provider Student in an Organized Health Care Education/Training Program
DX: I50.9 Heart failure, unspecified (principal)
CPT/HCPCS: 36415; 80048

== ENCOUNTER → 2020-10-16 10:55 | Outpatient (BNVA) | payer MEDICAID, SELFPAY | PROVIDERS: PCP Internal Medicine; Visit Provider Internal Medicine | DX: I48.0 Paroxysmal atrial fibrillation (principal); I42.9 Cardiomyopathy, unspecified; I10 Essential (primary) hypertension | CPT/HCPCS: 93005; 99212 ==

== ENCOUNTER → 2020-12-18 12:26 | Outpatient (BNVA) | payer MEDICAID, SELFPAY | PROVIDERS: PCP Internal Medicine; Referring Provider Internal Medicine; Visit Provider Internal Medicine | DX: I48.0 Paroxysmal atrial fibrillation (principal); I42.9 Cardiomyopathy, unspecified; I10 Essential (primary) hypertension | CPT/HCPCS: 99212 ==

== ENCOUNTER → 2020-12-26 09:48 | Outpatient (REF) | payer MEDICAID, SELFPAY ==
--- NOTE | ~2020-12-26 | NM_ITS ---
Lexiscan Myocardial perfusion study Indication: Cardiomyopathy, assess for coronary disease and ischemia Technique: The patient was brought in for a Lexiscan perfusion study on 12/26/2020 and was injected 0.4 mg of Lexiscan intravenously. Within a minute of this injection 30 mCi of sestamibi was given intravenously. Images were obtained using the SPECT gamma camera interlaced with the gating device. Images were obtained in supine position. Resting perfusion study was performed on 12/28/2020. Patient was administered 30 mCi of sestamibi intravenously at rest. Images were then obtained in supine position. Total DLP 82mGy-cm. Images were processed with the software and compared side to side in short axis, horizontal long axis and vertical long axis views. Findings: Raw acquisition was reviewed. The stress perfusion study showed diminished tracer uptake in the mid to distal inferior wall. With CT attenuation correction, the apical inferior defect is still present. Basal inferior defect seems improved. The gated study shows normal LV systolic function with calculated LVEF of 59%. LV cavity is normal in size. The basal segments have slight hypokinesis. Resting study shows mildly diminished tracer uptake in the mid to distal inferior wall. No significant change improvement with CT attenuation correction. Gating at rest reveals ejection fraction at 54%. Slight hypokinesis towards the basal segment and lateral wall. The findings are consistent with distal inferior defect with some reversibility. Mid inferior defect is fixed. AK/AK cardiolite stress test Impression: 1. Myocardial perfusion imaging study shows reversible defect at the inferior apex which could indicate ischemia. Fixed mid inferior defect that could indicate prior nontransmural infarct. 2. Gated LVEF is 59% during stress and 54% during rest. 3. Transient ischemic dilatation not present. EKG component of the test reported separately.
--- NOTE | 2020-12-26 09:52 | CA_ITS ---
Acquisition Time: 2020-12-26 09:53:17 Total Exercise Time: 00:02:00 Test Indications: Abnormal ECG Medications: AMLODIPINE AMIODORONE APIXABAN METOPROLOL Protocol: LEXISCAN Max HR: 099 BPM 60% of Pred: 163 BPM Max BP: 188/104 mmHG Max Work Load: 1.0 METS Pharmacological stress test with Lexiscan injection, while sitting and kicking her legs, without anginal symptoms, without arrythmia, with normotensive response to injection, with nondiagnostic EKG for ischemia. Nuclear images pending. Test reviewed with Dr Duncan. Note: test was ordered as exercise nuclear stress test but patient was hypertensive at baseline, 188/104. She was given her home Losartan and Metoprolol. After resting 1 hr, BP reached a low of 160/90. Test was changed to a pharmacological stress test to avoid hypertensive response to exercise. Referred By: Maco Duncan Overread By: ERICK GANNON
== END ==
LOC: HO.CARD 09:48
PROVIDERS: Visit Provider Internal Medicine
DX: I42.9 Cardiomyopathy, unspecified (principal)
CPT/HCPCS: 78452; 93017; A9500; J0280; J2785

== ENCOUNTER 2021-02-28 15:10 | Outpatient (REF) | payer MEDICAID, SELFPAY ==
--- NOTE | ~2021-02-28 | MM_ITS ---
EXAMINATION: MM SCREENING DIGITAL BREAST TOMOSYNTHESIS, BILATERAL CLINICAL INFORMATION: Screening. Asymptomatic. The lifetime risk of breast cancer based on the Tyrer-Cuzick Model is 5.5%. COMPARISON: Mammography: None. TECHNIQUE: Digital breast tomosynthesis is performed in both the craniocaudal and mediolateral oblique views along with computer-aided detection (CAD). Synthesized 2D images are generated from the tomosynthesis. FINDINGS: There are scattered areas of fibroglandular density (ACR BI-RADS breast composition Category b). No right breast abnormal dominant mass or suspicious grouping of microcalcifications identified. No region of architectural distortion seen. Within the left breast there is an old partially circumscribed density about the inferior aspect approximately 4 cm from the nipple for which I do not definitely see a correlate on craniocaudal view. Within the upper outer aspect of the left breast there are 2 adjacent circumscribed densities approximately 9 cm from the nipple measuring 9 x 7 and 7 x 4 mm in size. MM/MM tomosynthesis screening BI IMPRESSION: Left breast densities for further evaluation with spot compression views and ultrasound. ASSESSMENT: BI-RADS 0: Incomplete - Need Additional Imaging Evaluation RECOMMENDATION: 1. Additional views of the left breast. 2. Targeted ultrasound if warranted after review of the additional views. 3. Radiology department staff will contact the patient for additional imaging.
== END 2021-02-28 15:11 | disposition home or self-care (01) ==
LOC: HO.MAMMO 15:10
PROVIDERS: Visit Provider Internal Medicine
DX: Z12.31 Encounter for screening mammogram for malignant neoplasm of breast (principal)
CPT/HCPCS: 77063; 77067

== ENCOUNTER 2021-03-07 07:48 | Outpatient (REF) | payer MEDICAID, SELFPAY ==
--- NOTE | ~2021-03-07 | MM_ITS ---
EXAMINATION: MM DIAGNOSTIC DIGITAL BREAST TOMOSYNTHESIS, LEFT US DIAGNOSTIC ULTRASOUND BREAST, LEFT CLINICAL INFORMATION: Recall from baseline screening for 2 findings: nodularity posterior 1:30 o'clock position and asymmetric density lower anterior breast on one view. No known family history breast cancer. TC score 6%. COMPARISON: Mammography: 02/28/2021 (baseline). TECHNIQUE: Digital breast tomosynthesis is performed. 2D images are generated from the tomosynthesis. The following views are obtained: Spot CC, spot MLO, standard ML. Ultrasound left breast is targeted to the posterior upper outer breast and mid and anterior lower breast. Grayscale imaging and color Doppler are performed without and with harmonics. FINDINGS: There are scattered areas of fibroglandular density (ACR BI-RADS breast composition Category b). Additional views demonstrate smooth nodularity posterior 1:30 o'clock position, largest under 1 cm with use smaller adjacent satellite nodularity. The lower anterior breast shows no definite mass and no architectural abnormality. Ultrasound posterior upper outer left breast demonstrates 3 cysts 2:00 position 8 cm from nipple, largest measures 0.7 x 0.4 cm with a fine avascular internal septation. Margins are circumscribed and there is increased through-transmission of sound. There is a adjacent satellite cyst measuring 0.4 and a smaller adjacent satellite cyst. No solid mass or architectural abnormality. Ultrasound lower left breast demonstrates no cystic or solid mass or architectural abnormality. No focal duct ectasia. Results are discussed with the patient at time of visit. MM/MM tomosynthesis added views L IMPRESSION: -Benign nodularity posterior upper outer left breast corresponding to incidental cysts on ultrasound. -Unremarkable fibroglandular densities lower anterior left breast. No ultrasound correlate. ASSESSMENT: BI-RADS 2: Benign RECOMMENDATION: Routine annual mammography screening. This patient's information was entered into a reminder system with a target due date for their next mammogram.
== END 2021-03-07 07:49 | disposition home or self-care (01) ==
LOC: HO.MAMMO 07:48
PROVIDERS: PCP Internal Medicine; Visit Provider Internal Medicine
DX: R92.2 Inconclusive mammogram (principal)
CPT/HCPCS: 76642; 77061; 77065

== ENCOUNTER 2021-04-10 09:43 | Outpatient (REF) | payer MEDICAID, SELFPAY ==
--- NOTE | ~2021-04-10 | US_ITS ---
EXAMINATION: US RETROPERITONEAL LIMITED (RENAL ONLY) CLINICAL INFORMATION: Chronic kidney disease stage III. Hypertension. COMPARISON: None TECHNIQUE: Doppler color and bragg-scale evaluation of the kidneys. Bragg-scale and color Doppler evaluation of the renal arteries and renal veins including waveform spectral analysis. FINDINGS: RIGHT KIDNEY: 10 x 4 x 5.2 cm (SAG x AP x TRV). The kidney is normal in size, contour, and echogenicity. Renal cortical thickness is normal. No calculi or focal parenchymal lesions. No hydronephrosis. LEFT KIDNEY: 9 x 4.3 x 4.6 cm (SAG x AP x TRV). The kidney is normal in size, contour, and echogenicity. Renal cortical thickness is normal. No calculi or focal parenchymal lesions. No hydronephrosis. The visualized mid abdominal aorta is normal in caliber. Mid aortic peak systolic velocity measures 57 cm/s. The right renal artery peak systolic velocities are normal measuring 91, 65 and 77 cm/s proximally, in the midportion and distally. Right renal artery to aorta ratio is normal measuring 1.6 cm. Resistive indices in the interlobar arteries in the right kidney are normal measuring 0.7. The right renal vein is patent. Left renal artery peak systolic velocities are normal measuring 84, 112 and 102 cm/s proximally, in the midportion and distally. Left renal artery to aorta ratio is normal measuring 2. Resistive indices of the interlobar renal arteries in the left kidney are normal measuring 0.6-0.7. The left renal vein is patent. US/US renal BI IMPRESSION: Normal renal ultrasound and normal renal Doppler exam.
--- NOTE | ~2021-04-10 | US_ITS ---
EXAMINATION: US RETROPERITONEAL LIMITED (RENAL ONLY) CLINICAL INFORMATION: Chronic kidney disease stage III. Hypertension. COMPARISON: None TECHNIQUE: Doppler color and bragg-scale evaluation of the kidneys. Bragg-scale and color Doppler evaluation of the renal arteries and renal veins including waveform spectral analysis. FINDINGS: RIGHT KIDNEY: 10 x 4 x 5.2 cm (SAG x AP x TRV). The kidney is normal in size, contour, and echogenicity. Renal cortical thickness is normal. No calculi or focal parenchymal lesions. No hydronephrosis. LEFT KIDNEY: 9 x 4.3 x 4.6 cm (SAG x AP x TRV). The kidney is normal in size, contour, and echogenicity. Renal cortical thickness is normal. No calculi or focal parenchymal lesions. No hydronephrosis. The visualized mid abdominal aorta is normal in caliber. Mid aortic peak systolic velocity measures 57 cm/s. The right renal artery peak systolic velocities are normal measuring 91, 65 and 77 cm/s proximally, in the midportion and distally. Right renal artery to aorta ratio is normal measuring 1.6 cm. Resistive indices in the interlobar arteries in the right kidney are normal measuring 0.7. The right renal vein is patent. Left renal artery peak systolic velocities are normal measuring 84, 112 and 102 cm/s proximally, in the midportion and distally. Left renal artery to aorta ratio is normal measuring 2. Resistive indices of the interlobar renal arteries in the left kidney are normal measuring 0.6-0.7. The left renal vein is patent. US/US renal doppler IMPRESSION: Normal renal ultrasound and normal renal Doppler exam.
== END 2021-04-10 09:44 | disposition home or self-care (01) ==
LOC: HO.US 09:43
PROVIDERS: PCP Internal Medicine; Visit Provider Internal Medicine Nephrology
DX: I12.9 Hypertensive chronic kidney disease with stage 1 through stage 4 chronic kidney disease, or unspecified chronic kidney disease (principal); N18.31 Chronic kidney disease, stage 3a
CPT/HCPCS: 76775; 93975

== ENCOUNTER → 2021-07-03 14:48 | Outpatient (REF) | payer MEDICAID, SELFPAY ==
--- NOTE | 2021-07-03 14:51 | CA_ITS ---
Transthoracic Echocardiogram Patient (Last, First, Middle): Sarah Desouza, Gender: Female Date of : 1965 Age: 55 Procedure Date: 07/03/2021 Procedure Type: Transthoracic Echocardiogram Location: OP Height: 175.26 cm Weight: 93.44 kg BSA: 2.09 m2 Heart Rate: bpm BP: 166 / 101 mmHg Inside Polisher: YR/TO Referring MD: Maco Duncan MD Symptoms: I42.9 - Cardiomyopathy, unspecified Study Quality: Fair ECG Rhythm: Sinus Conclusions: - The left ventricular systolic function is low normal. The calculated ejection fraction is 54% by biplane method. - The apical inferior and mid inferior segments are hypokinetic. Findings Left Ventricle Normal left ventricular cavity size. There is moderately increased left ventricular wall thickness. The left ventricular systolic function is low normal. The calculated ejection fraction is 54% by biplane method. E/E prime ratio is >15, consistent with elevated filling pressures. Evidence suggests grade I (mild) diastolic dysfunction. Wall Motion Rest Echo Findings The apical inferior and mid inferior segments are hypokinetic. Prior Study Comparison Changes noted compared to prior study dated: 09/19/2020. Improved LVEF. Measurements 2D Linear Measurements IVSd: 1.15 0.6-0.9/0.6-1.0 cm LVIDd: 5.55 3.9-5.3/4.2-5.9 cm LVIDd Index: 2.66 2.4-3.2/2.2-3.1 cm/m2 LVIDs: 3.42 2.0-3.6 cm LVPWd: 1.11 0.7-1.1 cm LA Diam: 3.80 2.7-3.8/3.0-4.0 cm LAIDs Index: 1.82 1.5-2.3 cm/m2 LV Mass: 317.64 67-162/88-224 g LV Mass Index: 151.98 43-95/49-115 g/m2 2D Systolic Function EF 4C: 52.10 >55% EF 2C: 55.00 >55% EF BiP: 53.80 >55% Mitral Valve MV Pk E: 0.65 MV PK A: 1.07 MV Decel Time: 329.00 E/A: 0.60 E'Lateral: 3.48 E'Medial: 3.70 E/E' Med: 17.60 E/E' Lat: 18.70 PHT: 96.00 MVA PHT: 2.29 Decel [place]: 1.98 Diastolic Function MV Pk E: 0.65 MV Pk A: 1.07 E/A: 0.60 E'Medial: 3.70 E/E' Med: 17.60 E' Laterial: 3.48 E/E' Lat: 18.70 Updated in Other Vendor System with Status of Final Maco Duncan MD electronically signed on 07/05/2021 11:42:42 AM with status of Final
== END ==
LOC: HO.CARD 14:48
PROVIDERS: PCP Internal Medicine; Visit Provider Internal Medicine
DX: I42.9 Cardiomyopathy, unspecified (principal)
CPT/HCPCS: 93308

== ENCOUNTER 2023-04-18 06:29 | Inpatient (IN) | payer MEDICAID, SELFPAY ==
[2023-04-18] VITALS (9 sets, daily range): BP systolic 146–177; BP diastolic 85–111; PULSE 70–122; RESP 18–22; TEMP 36.8–37.6; O2SAT 93–97; BMI 30.6
--- NOTE | ~2023-04-18 | XR_ITS ---
EXAMINATION: XR CHEST CLINICAL INFORMATION: Flulike symptoms. COMPARISON: Chest radiograph dated 09/16/2020. TECHNIQUE: Frontal view of the chest was obtained. FINDINGS: The lungs are clear. The cardiomediastinal silhouette is normal in size. There is no pleural effusion or pneumothorax. No acute osseous abnormality. XR/XR chest 1V IMPRESSION: No acute cardiopulmonary findings.
--- NOTE | 2023-04-18 06:49 | MHC.EDTECH ---
Patient brought into triage area,labs,strep,and sars/flu/rsv were obtained and sent to lab,patient brought back to waiting area.
[2023-04-18 06:56] LABS: MANUAL DIFF FLAG NO
[2023-04-18 07:07] LABS: Basophils Percent Auto 0.3 % (0-2); Hematocrit 42.6 % (37.0-47.0); Imm Gran Abs Auto 0.02 X10*3/uL (0.00-0.03); Imm Gran Pct Auto 0.5 % (0.0-0.4); Lymphocytes Absolute Auto 0.6 X10*3/uL (1.2-4.9); Lymphocytes Percent Auto 15.7 % (20-40); Mean Corpuscular HGB Conc 32.9 g/dl (31.0-35.0); Mean Corpuscular Hemoglobin 29.6 pg (27.0-33.0); Mean Corpuscular Volume 90.1 fL (80.0-98.0); Mean Platelet Volume 11.1 fL (9.4-12.3); Monocytes Absolute Auto 0.5 X10*3/uL (0.1-1.2); Monocytes Percent Auto 12.2 % (2-11); Neutrophils Absolute Auto 2.7 x10*3/uL (2.0-8.3); Neutrophils Percent Auto 71.3 % (45-73); Platelet Count 182 X10*3/uL (160-400); Red Blood Count 4.73 X10*6/uL (4.20-5.50); Red Cell Distribution Width 12.6 % (11.0-16.0); White Blood Count 3.8 X10*3/uL (4.8-10.8)
[2023-04-18 07:10] LABS: Alanine Aminotransferase 12 U/L (0-31); Alkaline Phosphatase 113 U/L (39-117); Anion Gap 15 (12-20); Aspartate Amino Transferase 27 U/L (5-31); Bilirubin Total 0.7 mg/dL (0.0-1.0); Blood Urea Nitrogen 12 mg/dL (9-16); Calcium 8.7 mg/dL (8.4-10.2); Carbon Dioxide 22 mmol/L (22-29); Chloride 106 mmol/L (96-108); Creatinine Clr Calc Pharmacy 47.6; Estimated Glomerular Filt Rate 34; Glucose Random 137 mg/dL (60-115); Potassium 3.7 mmol/L (3.3-5.1); Sodium 139 mmol/L (135-145); Total Protein 7.1 g/dL (6.5-8.0)
[2023-04-18 07:19] LABS: IDNOW Serial# 6674DD1D; Strep A Nucleic Acid Negative (Negative)
[2023-04-18 07:34] LABS: Influenza A PCR POSITIVE (Negative); Influenza B PCR NEGATIVE (Negative); Resp Syncy Virus RNA Qual PCR NEGATIVE (Negative); SARS COV2 PCR INHOUSE NEGATIVE (Negative)
--- NOTE | 2023-04-18 08:02 | ED_ITS ---
HPI - URI/Sore Throat General Chief Complaint: Upper Respiratory Symptoms Stated Complaint: Sob/Fever Time Seen by Provider: 04/18/23 07:57 Source: patient Mode of arrival: ambulatory Limitations: no limitations History of Present Illness HPI Narrative: 57 year old female with pmhx significant for HTN, paroxysmal afib, cardiomegaly presents to the ED today for evaluation of dyspnea, fever, chills x2-3 days. TMAX 103F this morning. 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 Denies sore throat, cough, chest pain, palpitations, abd pain, N/V, diarrhea, LE pain/swelling/redness. Denies recent travel or long car rides. Denies sick contacts. Denies anticoagulation. Related Data Home Medications Medication Instructions Recorded Confirmed amlodipine 2.5 mg tablet 2.5 mg PO DAILY 12/18/20 12/18/20 Previous Rx's Medication Instructions Recorded amiodarone 200 mg tablet 200 mg PO DAILY #90 tabs 10/16/20 apixaban 5 mg tablet (Eliquis) 5 mg PO BID 90 days #180 tabs 10/16/20 losartan 25 mg tablet 25 mg PO DAILY 90 days #90 tabs 10/16/20 metoprolol succinate 50 mg 50 mg PO DAILY 60 days #60 tabs 01/03/22 tablet,extended release 24 hr Allergies Allergy/AdvReac Type Severity Reaction Status Date / Time No Known Allergies Allergy Verified 04/18/23 06:38 Review of Systems 2 Review of Systems: Constitutional: No fever, chills, fatigue, night sweats, weight changes ENT/Mouth: No ear pain, hearing loss, nasal congestion, sinus pain, rhinorrhea, sore throat, odynophagia, dysphagia Eyes: No eye pain, swelling, redness, vision changes, discharge Cardio: No chest pain, palpitations, BOSWELL, orthopnea, peripheral edema Pulm: No SOB, cough, sputum, wheezing, +dyspnea, No hemoptysis GI: No nausea, vomiting, hematemesis, abdominal pain, diarrhea, constipation, hematochezia, melena : No irregular bleeding, dysuria, frequency, urgency, hesitancy, hematuria, flank pain MSK: No back pain, neck pain, joint pain, myalgias Skin: No lesions, rashes Neuro: No weakness, numbness, paresthesias, LOC, dizziness, headache All other systems reviewed and are negative. [facility] Past Medical History Attestation statement: The following information was validated with the patient. Source: old records reviewed and nursing notes reviewed Medical History HTN (hypertension) New onset a-fib Surgical History History of cardioversion (~09/2020) H/O tooth extraction Family History Family History Father No problems noted. Mother No problems noted. Social History Social History Household Members: Significant Other Housing: House Do you presently have visiting nurse or other home services: No Alcohol intake: current Alcohol intake frequency: former alcohol drinker Patient Tobacco Use Status: Former Tobacco user Quit Date: about 2017 Smoked in Last 30 Days: No Use of substances other than those prescribed or required for medical reasons: Yes Substance Use Type: Marijuana Advance Directives: No Advance Directives Information Provided: Yes Advance Directives Date on File: 09/16/20 Patient : No service: No Current occupational status: employed Physical Exam 2 Vital Signs: Vital Signs: Last Vital Signs Temp 98.6 F 04/18/23 11:30 Pulse 103 H 04/18/23 14:43 Resp 20 04/18/23 14:43 BP 156/98 H 04/18/23 14:43 Pulse Ox 97 04/18/23 14:43 O2 Del Method Room Air 04/18/23 14:43 BMI result Body Mass Index 30.6 Patient is hypertensive to 150/85, tachypneic to 22. Const: General: cooperative, healthy appearing, comfortable, no acute distress, alert and awake Orientation/consciousness: patient oriented x3 L imitations: no limitations HEENT: Head: Yes normal to inspection, Yes normocephalic and Yes atraumatic Ears: hearing grossly normal bilaterally, external ears normal, TM's normal bilaterally, EAC's normal, mastoids normal and no periauricular adenopathy G eneral nose exam: Normal external nose present and No nasal discharge present Face and sinus: Yes normal facial exam and Yes sinuses nontender Eyes: General: appearance normal, both eyes and all related structures P upils: Equal, round and reactive pupils present Neck: Neck: Yes normal visual inspection and Yes full ROM Resp: Effort & Inspection: normal respiratory effort and able to speak in complete sentences Auscultation: clear to auscultation bilaterally Cardio: Other: + regularly irregular rate and rhythm Jugular venous distension: no JVD GI: Inspection: Yes normal to inspection Palpation (GI): Soft to palpation and nontender Skin: General skin exam: no rashes or lesions noted Neuro: General: patient oriented x3, gait normal and moves all extremities Cranial nerves: Yes Equal, round and reactive pupils present Extrem: General: Yes normal to inspection Course Course Course Narrative: 829-- EKG showing atrial fibrillation with RVR and premature ventricular complexes > diltiazem ordered for rate control. >> patient positive for Flu A. CBC w/o leukocytosis or anemia. h&h stable. Cr elevated to 1.55, BUN wnl. No acute electrolyte abnormality requiring intervention. CXR wnl. 0958-- Trop elevate to 21.6 > will repeat for delta. BNP elevated to 467 > there is no rhonchi on exam, no peripheral edema to suggest fluid overload. CXR unremarkable and does not demonstrate effusion or congestion. 1119- second dose of diltiazem given > will continue to monitor 1300-- Patient still noted to be in afib despite 2 doses of diltiazem. Will start on drip. 1452-- On repeat EKG, patient still in AFib with RVR, rate of 105 beats per minute. Diltiazem drip was increased to 15 without resolution. Will present to hospitalist for admission. 1605-- Hospitalist SHARMAINE Hunt accepted admission and will put in orders. Medications Administered Generic Name Dose Route Start Last Admin Trade Name Freq PRN Reason Stop Dose Admin Diltiazem HCl 125 mg/ Sodium 125 mls @ 0 mls/hr 04/18/23 13:00 04/18/23 14:42 Chloride IVCONT 15 mg/hr .Q0M ELIZABETH 15 mls/hr Titration Protocol Per Protocol Discontinued Medications Generic Name Dose Route Start Last Admin Trade Name Freq PRN Reason Stop Dose Admin Acetaminophen 975 mg 04/18/23 12:53 04/18/23 13:10 Acetaminophen 325 Mg Tablet PO 04/18/23 12:54 975 mg ONCE ONE Administration Diltiazem HCl 10 mg 04/18/23 08:28 04/18/23 08:49 Diltiazem Hcl 50 Mg/10 Ml Vial IVPUSH 04/18/23 08:29 10 mg STAT STA Administration Diltiazem HCl 10 mg 04/18/23 11:17 04/18/23 11:31 Diltiazem Hcl 50 Mg/10 Ml Vial IVPUSH 04/18/23 11:18 10 mg STAT STA Administration Metoprolol Succinate 50 mg 04/18/23 14:29 04/18/23 16:33 Metoprolol Succinate Er 50 Mg Tab.Er.24h PO 04/18/23 14:30 Not Given ONCE ONE Protocol Medical Decision Making Medical Decision Making [facility] Narrative: 57 year old female with pmhx significant for HTN, paroxysmal afib, cardiomegaly presents to the ED today for evaluation of dyspnea, fever, chills x2-3 days. Patient is hypertensive to 150/85, tachypneic to 22. Irregularly irregular rate and rhythm. She is nontoxic appearing and in NAD. Lungs CTA bilaterally. No JVD. No peripheral edema. Clinical concern for viral syndrome, pneumonia, pleural effusion, afib, CHF, hypertension. Likely ACS. Plan for labs, EKG, chest x-ray. Differential Diagnosis Differential Diagnoses: The differential diagnosis associated with the presentation includes as above. Admission/Observation Not indicated Lab Data [facility] Lab Attestation statement: I reviewed the patient's lab results. as above 04/18/23 06:48 04/18/23 06:48 Labs: Lab Results 04/18/23 04/18/23 Range/Units 06:48 09:50 WBC 3.8 L (4.8-10.8) X10*3/uL RBC 4.73 (4.20-5.50) X10*6/uL Hgb 14.0 (12.0-16.0) g/dl Hct 42.6 (37.0-47.0) % MCV 90.1 (80.0-98.0) fL MCH 29.6 (27.0-33.0) pg MCHC 32.9 (31.0-35.0) g/dl RDW 12.6 (11.0-16.0) % Plt Count 182 (160-400) X10*3/uL MPV 11.1 (9.4-12.3) fL Immature Gran % (Auto) 0.5 H (0.0-0.4) % Neut % (Auto) 71.3 (45-73) % Lymph % (Auto) 15.7 L (20-40) % Ritchie % (Auto) 12.2 H (2-11) % Eos % (Auto) 0.0 (0-4) % Baso % (Auto) 0.3 (0-2) % Lymph # (Auto) 0.6 L (1.2-4.9) X10*3/uL Ritchie # (Auto) 0.5 (0.1-1.2) X10*3/uL Eos # (Auto) 0.0 (0.0-0.4) X10*3/uL Baso # (Auto) 0.0 (0.0-0.2) X10*3/uL Abs Immat Gran (auto) 0.02 (0.00-0.03) X10*3/uL Absolute Neuts (auto) 2.7 (2.0-8.3) x10*3/uL Absolute Nucleated RBC 0.000 (0.0-0.012) X10*3/uL Nucleated RBC % (auto) 0.0 (0.0-0.2) /100WBC Sodium 139 (135-145) mmol/L Potassium 3.7 D (3.3-5.1) mmol/L Chloride 106 (96-108) mmol/L Carbon Dioxide 22 (22-29) mmol/L Anion Gap 15 (12-20) BUN 12 (9-16) mg/dL Creatinine 1.55 H (0.5-1.4) mg/dL Estim Creat Clear Calc 47.6 Estimated GFR 34 Random Glucose 137 H (60-115) mg/dL Calcium 8.7 D (8.4-10.2) mg/dL Total Bilirubin 0.7 (0.0-1.0) mg/dL AST 27 (5-31) U/L ALT 12 (0-31) U/L Alkaline Phosphatase 113 (39-117) U/L Troponin I High Sens 21.6 H 19.6 H (<3.5-17.0) ng/L B-Natriuretic Peptide 467 H (<100) pg/mL Total Protein 7.1 (6.5-8.0) g/dL Albumin 4.0 (3.5-5.0) g/dL Influenza Type A (PCR) POSITIVE A (Negative) Influenza Type B (PCR) NEGATIVE (Negative) RSV RNA Qual (PCR) NEGATIVE (Negative) SARS-CoV-2 RNA (RT-PCR) NEGATIVE (Negative) S. pyogenes GrpA DEBI Negative (Negative) Independent Interpretation I performed an independent interpretation of an: EKG and Plain X-Ray Interpretation: EKG showing atrial fibrillation with RVR, ventricular rate of 124, ST and T wave abnormalities. CXR without infiltrate, consolidation, or effusion, agree with radiologist's interpretation. Radiology Impression Discussion of test interpretation with radiology: I have reviewed the radiologist's reading. Radiologist Impression: XR chest 1V IMPRESSION: No acute cardiopulmonary findings. External Record Review External record reviewed: Inpatient record, Office record, Outpatient record, Prior outpatient labs, Prior outpatient radiology, Primary care record and Outside ED record Prescription Management I considered prescription management with: Pain Medication I considered management with Tamiflu however patient is out of the window for administration. Chronic Conditions Patient?s care impacted by: Hypertension and Other (afib w/ rvr, cardiomyopathy) Social Determinants Patient?s care significantly limited by Social Determinants of Health including: Other Social Determinant of Health Critical Care Time Critical Care Time Critical Care Time: Yes Total Critical Care Time: 50 Attestation: Critical care time in the amount of 50 minutes has been provided to the patient in terms of direct patient care, frequent reevaluation, consultation with hospitalist, review and interpretation of medical data and results, and management of potentially life-threatening conditions. This is all outside of any medical procedures. Discharge Plan Discharge Clinical Impression: Influenza A, Atrial fibrillation with rapid ventricular response Patient Disposition: Admitted As Inpatient
--- NOTE | 2023-04-18 08:21 | ECG_ITS ---
Test Reason : AFIB Blood Pressure : / mmHG Vent. Rate : 124 BPM Atrial Rate : 000 BPM P-R Int : 000 ms QRS Dur : 076 ms QT Int : 340 ms P-R-T Axes : 000 -08 -51 degrees QTc Int : 488 ms Atrial fibrillation with rapid ventricular response with premature ventricular or aberrantly conducted complexes Nonspecific ST and T wave abnormality Abnormal ECG When compared with ECG of 20-SEP-2020 00:28, Atrial fibrillation has replaced Sinus rhythm Referred By: Bhumika Bryant Electronically Signed By:HEIDE MOON
[2023-04-18] MEDS: dilTIAZem HCL 50 MG/10 ML VIAL 10 MG IVPUSH ×2 (08:49→11:31)
--- NOTE | 2023-04-18 08:55 | PC.NURSE ---
Pt is a&o x4 reports feeling unwell for x3 days. Reports feeling sob which has subsided. Denies n/v. Fever this am of 103, took mortin and is now afebrile. Pt speaking in clear full sentences.
[2023-04-18 09:22] LABS: B Type Natriuretic Peptide 467 pg/mL (<100)
[2023-04-18 09:35] LABS: Troponin-I High Sensitivity 21.6 ng/L (<3.5-17.0)
[2023-04-18 10:20] LABS: Troponin-I High Sensitivity 19.6 ng/L (<3.5-17.0)
[2023-04-18] MEDS: Acetaminophen 325 MG TABLET 975 MG PO (13:10)
[2023-04-18] MEDS: dilTIAZem HCL 125 MG in 0.9 % Sodium Chloride 100 ML 10 MG IVCONT (13:11)
--- NOTE | 2023-04-18 14:14 | ECG_ITS ---
Test Reason : REPEAT Blood Pressure : / mmHG Vent. Rate : 105 BPM Atrial Rate : 000 BPM P-R Int : 000 ms QRS Dur : 078 ms QT Int : 342 ms P-R-T Axes : 000 -07 -03 degrees QTc Int : 452 ms Atrial fibrillation with rapid ventricular response Minimal voltage criteria for LVH, may be normal variant ( Sokolow-Nails ) Nonspecific ST and T wave abnormality Abnormal ECG When compared with ECG of 18-APR-2023 08:26, No significant change was found Referred By: Bhumika Bryant Electronically Signed By:HEIDE MOON
--- NOTE | 2023-04-18 16:03 | P.HPHOSP_ITS ---
History of Present Illness Date of Service: 04/18/23 Attending physician on admission: John Trejo Chief Complaint: sob,afib rvr 81-year-old female with past medical history chronic atrial fibrillation, hypertension-who was in the hospital in 2020 and that time had cardioversion- subsequently placed on amiodarone/Eliquis: She comes to the hospital now because of UR I like symptoms(myalgia, runny nose, fever subjective even though she said she took the temperature and 103 at home), she also claims that she was taken off Eliquis 2 years ago(but reviewed the records from Cardiology does not seems to be the case, when asked again she told me that she went to the pharmacist and they told that was discontinued?) Subsequently she did not follow-up with Cardiology. She says that from last 2-3 days she is feeling above symptoms, also getting short of breath and has cough with yellowish phlegm, short of breath-hence decided to come to the hospital. She also had nausea and vomiting could not able to take p.o. from 2 days, generalized weak. She denies any recent travel or any sick contacts. Denies any bleeding issues. Also denies any stroke or any fall. Denies any new complaint of chest pain or abdominal pain Denies any weakness or numbness. labs,imaging ,ekg reviewed: cbc : wbc : 3.8 bmp: 12/1.55 trop flat in 20's XR/XR chest 1V IMPRESSION: No acute cardiopulmonary findings. ekg: afib rvr@ 105 vent rate. bnp Ed:received diltiazem iv and sterted on diltiazem drip. Review of Systems 2 Review of Systems: Yes all other systems are reviewed and are negative [facility] Medical History HTN (hypertension) New onset a-fib Family History Father No problems noted. Mother No problems noted. Surgical History History of cardioversion (~09/2020) H/O tooth extraction Social History Household Members: Significant Other Housing: House Do you presently have visiting nurse or other home services: No Alcohol intake: current Alcohol intake frequency: former alcohol drinker Patient Tobacco Use Status: Former Tobacco user Quit Date: about 2017 Smoked in Last 30 Days: No Use of substances other than those prescribed or required for medical reasons: Yes Substance Use Type: Marijuana Advance Directives: No Advance Directives Information Provided: Yes Advance Directives Date on File: 09/16/20 Patient : No service: No Current occupational status: employed Meds Allergies Allergy/AdvReac Type Severity Reaction Status Date / Time No Known Allergies Allergy Verified 04/18/23 06:38 Active Medications: Current Medications Diltiazem HCl 125 mg/ Sodium (Chloride) 125 mls @ 0 mls/hr IVCONT .Q0M [facility]; Protocol Last Titration: 04/18/23 14:42 Dose: 15 mg/hr, 15 mls/hr Oseltamivir Phosphate (Oseltamivir Phosphate 75 Mg Capsule) 75 mg PO BID [facility] Sodium Chloride (0.9 % Sodium Chloride Flush 3 Ml Syringe) 3 ml IVFLUSH QSHIFT [facility] Home Medications Medication Instructions Recorded Confirmed Last Taken Type amlodipine 2.5 mg tablet 2.5 mg PO DAILY 12/18/20 12/18/20 Unknown History Physical Exam 2 Vital Signs and Narrative: Vital Signs: Last Vital Signs Temp 98.6 F 04/18/23 11:30 Pulse 103 H 04/18/23 14:43 Resp 20 04/18/23 14:43 BP 156/98 H 04/18/23 14:43 Pulse Ox 97 04/18/23 14:43 O2 Del Method Room Air 04/18/23 14:43 BMI result Body Mass Index 30.6 Appearance: Alert.? Oriented X3.?ventricular rate is 100-110. Eyes: Pupils equal, round and reactive to light.? Sclera nonicteric.? ENT: Pharynx normal.? Moist mucous membranes. cvs: irregular rythem, [id number] . res: clear to auscultation ,no rhonchii or wheezing abd: no rebound or guarding ,nt, bs present. ext pulses present , no cyanosis or edema . neuro: axo3 , nonfocal. Results Labs 04/18/23 06:48 04/18/23 06:48 Labs: Laboratory Results - last 24 hr 04/18/23 06:48 MCV 90.1 MCH 29.6 MCHC 32.9 RDW 12.6 Plt Count 182 MPV 11.1 Immature Gran % (Auto) 0.5 H Neut % (Auto) 71.3 Lymph % (Auto) 15.7 L [place] % (Auto) 12.2 H Eos % (Auto) 0.0 Baso % (Auto) 0.3 Lymph # (Auto) 0.6 L [place] # (Auto) 0.5 Eos # (Auto) 0.0 Baso # (Auto) 0.0 Abs Immat Gran (auto) 0.02 Absolute Neuts (auto) 2.7 Absolute Nucleated RBC 0.000 Nucleated RBC % (auto) 0.0 Anion Gap 15 Estim Creat Clear Calc 47.6 Estimated GFR 34 Random Glucose 137 H Calcium 8.7 D Total Bilirubin 0.7 AST 27 ALT 12 Alkaline Phosphatase 113 B-Natriuretic Peptide 467 H Total Protein 7.1 Albumin 4.0 Influenza Type A (PCR) POSITIVE A Influenza Type B (PCR) NEGATIVE RSV RNA Qual (PCR) NEGATIVE SARS-CoV-2 RNA (RT-PCR) NEGATIVE S. pyogenes GrpA DEBI Negative Imaging Radiologist's Impressions: Impressions Chest X-Ray 04/18/23 07:40 IMPRESSION: No acute cardiopulmonary findings. Assessment and Plan (1) Atrial fibrillation with rapid ventricular response: Status: Acute (2) Influenza A: Status: Acute Plan 54F presented with sob, found to have new onset afib afib with rvr : Has chronic AFib chadvasc at least 3 added tsh levels on diltiazem drip-hr imrpoving,moniter on tele in 2020 as per cardio note-supposed to be on amiodarone, metoprolol, medical considerations still pending, will add add Eliquis since does not show up in the system it was discontinued History of chf with reduced ejection fraction/htn: Seems euvolemic no edema Seems like shortness of breath initial was due to AFib with RVR, and influenza(because all this started with flu-like symptoms.) Last echo 2 years ago: echo echo showing decreased EF of 30-35% Hold diuretic for now-due to EMMANUEL and decreased p.o. intake, patient is even saying she lost some weight but does not know how much from last 2 days. Hold losartan since has EMMANUEL, also hold amlodipine-due to already on diltiazem drip. EMMANUEL: Multifactorial: Decreased p.o. intake, on diuretics, influenza. Hold Lasix, monitor renal function and electrolytes. Influenza A: added Tamiflu. Overweight: Encouraged to lose weight, cutdown calories. DVT PPX Eliquis(medical reconciliation is pending) Patient will benefit from 48-72 hour hospital stay considering AFib with RVR- need IV diltiazem drip control heart rate, monitor for tachycardia or Seth arrhythmias, monitoring of renal function and electrolytes due to EMMANUEL, as well as needed expert consultation for AFib control. Assessment and plan coordination time spent 70 minute above plan discussed with the patient in detail length she understand in agreement with the plan, patient full code. Quality Stroke Does the patient have a stroke diagnosis?: No VTE Prior VTE?: No VTE Risk Level:: Medical - moderate - high VTE Device Contraindication: N/A - Device Ordered VTE Drug Contraindication: N/A - Med Ordered
[2023-04-18] MEDS: 0.9 % Sodium Chloride Flush 3 ML SYRINGE IVFLUSH (16:39)
--- NOTE | 2023-04-18 17:30 | PHA.MEDREC ---
Pharmacy Consult ? Medication Reconciliation Pharmacy has completed the medication reconciliation. Spoke to patient to confirm meds. Per patient, they only take Lasix 20mg PRN swelling and Metoprolol succ 50 mg daily. When inquiring the patient on amiodarone prescription, the patient stated that they stopped taking it a month ago because the discharge provider told them they didn't need anymore pills after running out of med's original prescription. However, the patient stated this was prescribed after the cardiovert, which was back in 2020. For amlodipine and losartan, the patient stated that they last took it a year ago and don't know anything about it for both medications. For Eliquis, the patient stated that they stopped taking it 2 years ago because the prescriber at the time only sent a prescription for a one-time fill and that there was no refills on the prescription. The patient also mentioned that they were supposed to follow up with the prescribing provider afterwards and stated that when they followed up, the provider did not prescribe anymore Eliquis for the patient. When asked why, the patient said the provider told them they didn't need it . I relayed to the patient that notes from the provider in 2020 stated that the patient was supposed to continue amiodarone and Eliquis. The patient then stated that they were confused why that was never mentioned to them, with the patient claiming to have no recollection of that being said to them.
[2023-04-18 17:54] LABS: Thyroid Stimulating Hormone 0.43 uIU/mL (0.32-4.0)
[2023-04-19] MEDS: dilTIAZem HCL 125 MG in 0.9 % Sodium Chloride 100 ML 10 MG IVCONT ×2 (01:39→12:53)
[2023-04-19 05:00] VITALS: BP 145/96; PULSE 97; RESP 19; O2SAT 95
[2023-04-19 08:00] VITALS: BP 138/92; PULSE 85; RESP 20; O2SAT 96
[2023-04-19] MEDS: Metoprolol Succinate ER 50 MG TAB.ER.24H PO (08:59)
[2023-04-19] MEDS: Apixaban 5 MG TABLET PO ×2 (08:59→20:39)
[2023-04-19] MEDS: Oseltamivir Phosphate 30 MG CAPSULE PO ×2 (11:02→20:39)
--- NOTE | 2023-04-19 11:09 | P.CONCA_ITS ---
History of Present Illness History of Present Illness Date of Service: 04/19/23 Chief complaint: afib with rvr and influenza Narrative: This is a cardiology consultation regarding atrial fibrillation with rapid rate. Patient is currently here for influenza infection. In this context, she is having atrial fibrillation/rapid rate. She has been having some URI like symptoms including myalgias, runny nose extra. Has also had some shortness of breath, cough with colored sputum. Nausea/vomiting. Denies any chest pain. She was last seen in the clinic in 2020. Prior to that, she had a hospitalization. Had atrial fibrillation for which she underwent TERRY/cardioversion and was put on amiodarone and beta-blockers with anticoagulation. 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 Any case, did not follow up and she states she was not taking most of her medications either. However, did not have any palpitations according to her. Review of Systems 2 Review of Systems: Yes all other systems are reviewed and are negative Constitutional: Constitutional: Reports as per HPI, Reports no additional constitutional complaints and Reports fatigue Eyes: Eyes: Reports as per HPI and Denies no additional eye complaints ENT: Denies system reviewed and no additional complaints, except as documented and Reports as per HPI Cardiovascular: Cardiovascular: Reports as per HPI, Reports no additional cardiovascular complaints, Denies acrocyanosis, Denies cool extremities, Denies chest pain, Denies leg edema, Denies lightheadedness, Denies palpitations and Denies dyspnea Respiratory: Respiratory: Reports as per HPI, Denies no additional respiratory complaints and Denies dyspnea Gastrointestinal: Gastrointestinal: Reports as per HPI and Denies no additional gastrointestinal complaints Genitourinary: Genitourinary: Reports as per HPI Musculoskeletal: Musculoskeletal: Reports no additional musculoskeletal complaints and Reports as per HPI Integumentary/Breasts: Skin/Breast: Reports system reviewed and no additional complaints, except as docu Neurologic: Reports system reviewed and no additional complaints, except as documented and Reports as per HPI Psychiatric: Psychiatric: Reports no additional psychiatric complaints and Reports as per HPI Endocrine: Endocrine: Reports no additional endocrine complaints, Reports as per HPI, Reports fatigue and Denies palpitations Hematologic/Lymphatic: Hematologic/Lymphatic: Reports no additional hematologic/lymphatic complaints and Reports as per HPI Allergic/Immunologic: Allergic/Immunologic: Reports no additional allergic/immunologic complaints and Reports as per HPI [facility] Past Medical History Medical History HTN (hypertension) New onset a-fib Family History Family History Father No problems noted. Mother No problems noted. Surgical History Surgical History History of cardioversion (~09/2020) H/O tooth extraction Social History Social History Household Members: Family Housing: Apartment Do you presently have visiting nurse or other home services: No Alcohol intake: current Alcohol intake frequency: former alcohol drinker Patient Tobacco Use Status: Former Tobacco user Quit Date: about 2017 Second Hand Smoke Exposure: No Substance Use Type: Marijuana Advance Directives Date on File: 09/16/20 service: No Current occupational status: employed Meds Allergies Allergy/AdvReac Type Severity Reaction Status Date / Time No Known Allergies Allergy Verified 04/18/23 06:38 Active Medications: Current Medications Acetaminophen (Acetaminophen 325 Mg Tablet) 650 mg PO Q6H PRN PRN Reason: Pain, Moderate(Pain Scale 4-6) Apixaban (Apixaban 5 Mg Tablet) 5 mg PO BID [facility] Last Admin: 04/19/23 08:59 Dose: 5 mg Diltiazem HCl 125 mg/ Sodium (Chloride) 125 mls @ 0 mls/hr IVCONT .Q0M [facility]; Protocol Last Admin: 04/19/23 01:39 Dose: 10 mg/hr, 10 mls/hr Metoprolol Succinate (Metoprolol Succinate Er 50 Mg Tab.Er.24h) 50 mg PO DAILY [facility]; Protocol Last Admin: 04/19/23 08:59 Dose: 50 mg Oseltamivir Phosphate (Oseltamivir Phosphate 30 Mg Capsule) 30 mg PO BID [facility] Last Admin: 04/19/23 11:02 Dose: 30 mg Sodium Chloride (0.9 % Sodium Chloride Flush 3 Ml Syringe) 3 ml IVFLUSH QSHIFT [facility] Last Admin: 04/19/23 08:59 Dose: Not Given Home Medications Medication Instructions Recorded Confirmed Last Taken Type furosemide 20 mg tablet 20 mg PO DAILY PRN swelling 04/18/23 04/18/23 04/17/23 History metoprolol succinate 50 mg 50 mg PO DAILY 04/18/23 04/18/23 04/17/23 History tablet,extended release 24 hr Physical Exam 2 Vital Signs: Vital Signs: Last Vital Signs Temp 98.2 F 04/18/23 21:35 Pulse 85 04/19/23 08:00 Resp 20 04/19/23 08:00 BP 138/92 H 04/19/23 08:00 Pulse Ox 96 04/19/23 08:00 O2 Del Method Room Air 04/19/23 08:00 BMI result Body Mass Index 30.6 Const: General: comfortable and no acute distress O rientation/consciousness: patient oriented x3 HEENT: Other: Unremarkable Head: Yes normal to inspection Neck: Neck: Yes normal visual inspection Chest: Chest palpation & inspection: normal inspection of the chest Resp: Auscultation: rhonchi Cardio: Palpation: normal PMI Heart sounds: S1 normal heart sound present, S2 normal heart sound present, no gallops, no murmurs and no rubs GI: Palpation (GI): Soft to palpation Back/Spine/Pelvis: Other: unremarkable Skin: General skin exam: no rashes or lesions noted Neuro: General: patient oriented x3 Extrem: General: Yes normal to inspection Psych: Mental Status: mental status grossly normal Objective Labs and Meds 04/18/23 06:48 04/18/23 06:48 Lab results: Laboratory Results - last 24 hr 04/18/23 04/18/23 06:48 09:50 TSH Cancelled 0.43 ECG Interpretation: EKG with atrial fibrillation at a rate of 124/Min. PVC. Nonspecific ST-T changes. Repeat EKG at a rate of 105/Min. Assessment and Plan (1) Atrial fibrillation with rapid ventricular response: Status: Acute Based on compliance, would just do rate control at this time. May increase the beta-blockers to Toprol-XL 100 mg daily. May wean and stop the diltiazem drip. Agree with resuming Eliquis. Last echocardiogram with LVEF of 54%. Apical inferior/mid inferior hypokinesis. Perfusion imaging showed reversible defect of the inferior apex-could indicate ischemia; fixed mid inferior defect, possible prior nontransmural infarct. (2) Influenza A: Status: Acute On Tamiflu. Plan Discussed with Dr. Trejo. Procedures Date of Service Date of Service: 04/19/23
--- NOTE | 2023-04-19 11:11 | MHC.CM.PN ---
Patient is from home w/ sister and son. Functionally independent, no services or equipment. No PCP, states she has one in mind and does not need assistance. No HCP, CM provided education and patient declines to complete at this time. DP: Goal is home self care. Boyfriend to transport. CM will continue to follow for dc needs.
[2023-04-19 11:17] VITALS: BP 151/108; PULSE 87; RESP 20; TEMP 36.6; O2SAT 97
[2023-04-19 12:02] LABS: Anion Gap 14 (12-20); Blood Urea Nitrogen 12 mg/dL (9-16); Calcium 8.6 mg/dL (8.4-10.2); Carbon Dioxide 24 mmol/L (22-29); Chloride 103 mmol/L (96-108); Creatinine Clr Calc Pharmacy 66.6; Estimated Glomerular Filt Rate 50; Glucose Random 103 mg/dL (60-115); Potassium 4.1 mmol/L (3.3-5.1); Sodium 137 mmol/L (135-145)
[2023-04-19] MEDS: Acetaminophen 325 MG TABLET 650 MG PO (12:54)
--- NOTE | 2023-04-19 14:15 | HO.PM.IMPN ---
Subjective Subjective Date of Service: 04/19/23 Interval History: afib with rvr ,influenza a Review of Systems sob seems improving as wella s plapatations Denies any chest pain or nausea vomiting. Physical Exam Vital Signs: Vital Signs: Last Vital Signs Temp 97.9 F 04/19/23 11:17 Pulse 87 04/19/23 11:17 Resp 20 04/19/23 11:17 BP 151/108 H 04/19/23 11:17 Pulse Ox 97 04/19/23 11:17 O2 Del Method Room Air 04/19/23 11:17 BMI result Body Mass Index 30.6 Appearance: Alert.? Oriented X3,not in distress. cvs: irregular rythem, [id number] . res: clear to auscultation ,no rhonchii or wheezing abd: no rebound or guarding ,nt, bs present. ext pulses present , no cyanosis or edema . neuro: axo3 , nonfocal. Objective Data Active Medications Acetaminophen (Acetaminophen 325 Mg Tablet) 650 mg PO Q6H PRN PRN Reason: Pain, Moderate(Pain Scale 4-6) Last Admin: 04/19/23 12:54 Dose: 650 mg Documented By: JHONNY Apixaban (Apixaban 5 Mg Tablet) 5 mg PO BID [facility] Last Admin: 04/19/23 08:59 Dose: 5 mg Documented By: MARY BETH Diltiazem HCl 125 mg/ Sodium (Chloride) 125 mls @ 0 mls/hr IVCONT .Q0M [facility]; Protocol Last Admin: 04/19/23 12:53 Dose: 10 mg/hr, 10 mls/hr Documented By: JHONNY Metoprolol Succinate (Metoprolol Succinate Er 100 Mg Tab.Er.24h) 100 mg PO DAILY [facility]; Protocol Oseltamivir Phosphate (Oseltamivir Phosphate 30 Mg Capsule) 30 mg PO BID [facility] Last Admin: 04/19/23 11:02 Dose: 30 mg Documented By: CHRISTINE Sodium Chloride (0.9 % Sodium Chloride Flush 3 Ml Syringe) 3 ml IVFLUSH QSHIFT [facility] Last Admin: 04/19/23 08:59 Dose: Not Given Documented By: MARY BETH Non-Admin Reason: IV Running Labs 04/18/23 06:48 04/19/23 11:26 Labs: Laboratory Results - last 24 hr 04/18/23 04/18/23 04/19/23 06:48 09:50 11:26 Hold Purple Top SEE NOTE Anion Gap 14 Estim Creat Clear Calc 66.6 Estimated GFR 50 Random Glucose 103 Calcium 8.6 TSH Cancelled 0.43 Assessment and Plan (1) Atrial fibrillation with rapid ventricular response: Status: Acute (2) Influenza A: Status: Acute Plan 54F presented with sob, found to have afib with rvr (chronic AFib). afib with rvr : Has chronic AFib chadvasc at least 3 tsh levels normal. moniter on tele stop cardizemdrip ,adjusted toprol to 100 mg,continue eliquis History of chf with reduced ejection fraction/htn: Seems euvolemic no edema Seems like shortness of breath initial was due to AFib with RVR, and influenza(because all this started with flu-like symptoms.) Last echo 2 years ago: echo echo showing decreased EF of 30-35% Hold diuretic for now-due to EMMANUEL and decreased p.o. intake, patient is even saying she lost some weight but does not know how much from last 2 days. Hold losartan since has EMMANUEL, also hold amlodipine-due to already on diltiazem drip. EMMANUEL: Multifactorial: Decreased p.o. intake, on diuretics, influenza. Hold Lasix, monitor renal function and electrolytes. Influenza A: added Tamiflu. Overweight: Encouraged to lose weight, cutdown calories. DVT PPX Eliquis(medical reconciliation is pending) ongoing need for hospital stay considering AFib with RVR-need IV diltiazem drip control heart rate-need weaning/adjustment of toprol, monitor for tachycardia or Seth arrhythmias, monitoring of renal function and electrolytes due to EMMANUEL, as well as needed expert consultation for AFib control.al so need influenza treatment. Quality Stroke Does the patient have a stroke diagnosis?: No VTE Prior VTE?: No VTE Risk Level:: Medical - moderate - high VTE Device Contraindication: N/A - Device Ordered VTE Drug Contraindication: N/A - Med Ordered
[2023-04-19 15:26] VITALS: BP 154/99; PULSE 83; RESP 16; TEMP 36.6; O2SAT 98
[2023-04-19 19:51] VITALS: BP 140/93; PULSE 97; RESP 20; TEMP 37; O2SAT 97
[2023-04-20] VITALS: BP 151/96; PULSE 94; RESP 17; TEMP 37.1; O2SAT 94
[2023-04-20] MEDS: 0.9 % Sodium Chloride Flush 3 ML SYRINGE IVFLUSH ×2 (00:37→08:59)
[2023-04-20 04:00] VITALS: BP 121/92; PULSE 78; RESP 18; TEMP 37.1; O2SAT 98
[2023-04-20 08:00] VITALS: BP 146/97; PULSE 106; RESP 18; TEMP 36.6; O2SAT 97
[2023-04-20] MEDS: Metoprolol Succinate ER 100 MG TAB.ER.24H PO (08:58)
[2023-04-20] MEDS: Oseltamivir Phosphate 30 MG CAPSULE PO (08:58)
[2023-04-20] MEDS: Apixaban 5 MG TABLET PO (08:58)
--- NOTE | 2023-04-20 10:19 | P.DS_ITS ---
DS: Providers Provider Date of Service: 04/20/23 Date of admission: 04/18/23 15:58 Date of discharge: 04/20/23 Primary care physician: None Physician Consults: 04/18/23 16:02 Consult to Cardiology Routine Consulting Provider: [facility] [place] Cardiovascular Services Reason for consultation: afib with rvr ,dyspnea Has provider been notified: No DS: Diagnosis Discharge Diagnosis (1) Atrial fibrillation with rapid ventricular response: Status: Acute (2) Influenza A: Status: Acute DS: Summary Hospital Course Hospital Course: 81-year-old female with past medical history chronic atrial fibrillation, hypertension-who was in the hospital in 2020 and that time had cardioversion- subsequently placed on amiodarone/Eliquis: She comes to the hospital now because of UR I like symptoms(myalgia, runny nose, fever subjective even though she said she took the temperature and 103 at home), she also claims that she was taken off Eliquis 2 years ago(but reviewed the records from Cardiology does not seems to be the case, when asked again she told me that she went to the pharmacist and they told that was discontinued?) Subsequently she did not fol low-up with Cardiology. She says that from last 2-3 days she is feeling above symptoms, also getting short of breath and has cough with yellowish phlegm, short of breath-hence decided to come to the hospital. She also had nausea and vomiting could not able to take p.o. from 2 days, generalized weak. She denies any recent travel or any sick contacts. Denies any bleeding issues. Also denies any stroke or any fall. Denies any new complaint of chest pain or abdominal pain Denies any weakness or numbness. labs,imaging ,ekg reviewed: cbc : wbc : 3.8 bmp: 12/1.55 trop flat in 20's XR/XR chest 1V IMPRESSION: No acute cardiopulmonary findings. ekg: afib rvr@ 105 vent rate. bnp Ed:received diltiazem iv and sterted on diltiazem drip. Hospital course: patient was admitted for afib wirh rvr as well as found to have uri like symptoms (has influenza A): started on cardizem drip and her palpatation and heart rate improved-her metoprolol adjusted to 100 mg po daily and started back on eliquis. medication compliance advised in detail as well strongly encouraged to follow up with pcp and cardiology outpatient. plan: metoprolol adjusted to 100 mg po daily ,continue eliquis po 5 mg bid. follow up with pcp and cardiology outpatient. Above management discussed the patient detail and she understand and agreement with the above plan, time spent says 50 minute. Time Attestation Discharge coordination time: Greater than 30 minutes Quality: Safe Use of Opioids Does Pt have an Active Cancer Diagnosis on the Problem List?: No Quality: Stroke Does the patient have a stroke diagnosis?: No Physical Exam Vital Signs: Vital Signs: Last Vital Signs Temp 97.9 F 04/20/23 08:00 Pulse 106 H 04/20/23 08:00 Resp 18 04/20/23 08:00 BP 146/97 H 04/20/23 08:00 Pulse Ox 97 04/20/23 08:00 O2 Del Method Room Air 04/20/23 08:00 BMI result Body Mass Index 30.6 Appearance: Alert.? Oriented X3,not in distress. cvs: irregular rythem, [id number] . res: clear to auscultation ,no rhonchii or wheezing abd: no rebound or guarding ,nt, bs present. ext pulses present , no cyanosis or edema . neuro: axo3 , nonfocal. DS: Data Data Completed and Pending Completed studies during hospitalization [Text1]: Procedures Zoroastrianism of Cardiac Rhythm, Single (09/16/20) Labs on day of discharge: Laboratory Results - last 24 hr 04/19/23 11:26 Hold Purple Top SEE NOTE Sodium 137 Potassium 4.1 Chloride 103 Carbon Dioxide 24 Anion Gap 14 BUN 12 Creatinine 1.11 Estim Creat Clear Calc 66.6 Estimated GFR 50 Random Glucose 103 Calcium 8.6 Imaging Chest x-ray: Radiologist's impression: ITS Impressions Chest X-Ray 04/18/23 07:40 IMPRESSION: No acute cardiopulmonary findings. Discharge Plan Discharge Anticipated Discharge Date/Time: 04/20/23 10:13 Patient Disposition: Home, Self-Care Discharge Diagnosis: afib with rvr ,influenza A Referrals: Physician,None [Primary Care Provider] - Discharge Medications: New oseltamivir 30 mg Capsule 30 mg PO BID Qty: 8 0RF Eliquis 5 mg Tablet 5 mg PO BID Qty: 60 0RF Continued furosemide 20 mg tablet 20 mg PO DAILY PRN (Reason: swelling) Changed metoprolol succinate 50 mg tablet extended release 24 hr 100 mg PO DAILY Qty: 60 0RF Rx Instructions: Overdue for appointment. Please call [phone] to schedule an appointment in order to receive more refills. Discharge Orders: Discharge Order (Routine); Ordered 04/20/23 Ordered By: John Trejo Diet: Advance to usual diet Activity on Discharge: As tolerated Stand Alone Forms: Patient Portal Discharge page Care Plan Goals: patient was admitted for afib wirh rvr as well as found to have uri like symptoms (has influenza A): started on cardizem drip and her palpatation and heart rate improved-her metoprolol adjusted to 100 mg po daily and started back on eliquis. medication compliance advised in detail as well strongly encouraged to follow up with pcp and cardiology outpatient. Health Concerns: as above. Plan of Treatment: as above. Assessment: as above. Patient Instructions: A-fib (Atrial Fibrillation) (ED), Flu Shot (Vaccine) for Adults (ED)
--- NOTE | 2023-04-20 11:14 | P.F2F_ITS ---
Service Date Service Date: 04/20/23 Encounter Date of encounter: 04/20/23 Encounter: afib ,influenza A Reasons for Services Signs and symptoms assessed: Monitor for palpitation or chest pain or shortness of breath . Reason for intermediate: CV/CP assess and/or care, medication management, medication treatment and teach disease management Homebound: Leaving the home is medically contraindicated at this time without the asist of a device and/or another person due th the listed conditions above and below. Reason homebound: weakness related to hospital stay Homebound supporting statement: Patient is generalized weak multiple comorbidities if afib , influenza A-needs help to appointments, medication management ,labs draws. Certification: Based on the above findings, I certify that this patient is confined to the home and needs intermittent intermediate care, physical therapy and/or speech therapy, or continues to need occupational therapy. The patient is under my care, and I have initiated the establishment of the plan of care. The patient will be followed by a physician who will periodically review the plan of care. Time Spent With Patient Time: Total time managing care of this patient today ____ minutes.
--- NOTE | 2023-04-20 11:49 | MHC.CM.PN ---
CM MET WITH PT TO DISCUSS DC PLANNING SHE IS AWARE SHE CANNOT HAVE VNA DUE TO HAVING NO PCP SHE SAYS SHE IS INTERESTED IN GETTING A NEW PT APPT AT [facility] TASK SENT PT REPORTS SHE HAS BEEN ON ELIQUIS IN THE PAST, COUPON NOT REQUIRED PT WILL ARRANGE HER OWN TRANSPORT
== END 2023-04-20 13:38 | disposition home health service (06) | DRG 113 ==
LOC: HO.ED 08:08 → HO.EDOVER 16:13 → HO.IMC 04-19 09:26
PROVIDERS: Physician Assistant Medical; Admitting Provider Internal Medicine; Emergency Provider Emergency Medicine; Visit Provider Internal Medicine
DX: J10.1 Influenza due to other identified influenza virus with other respiratory manifestations (principal); I42.8 Other cardiomyopathies; I50.22 Chronic systolic (congestive) heart failure; I11.0 Hypertensive heart disease with heart failure; I48.20 Chronic atrial fibrillation, unspecified; E66.3 Overweight; Z71.3 Dietary counseling and surveillance; Z68.30 Body mass index [BMI] 30.0-30.9, adult; Z87.891 Personal history of nicotine dependence; Z79.01 Long term (current) use of anticoagulants; Z79.899 Other long term (current) drug therapy
CPT/HCPCS: 0241U; 36415; 71045; 80048; 80053; 83880; 84443; 84484; 85025; 87651; 93005; 99285

== ENCOUNTER → 2023-04-18 08:21 | Outpatient (BNV) | payer MEDICAID, SELFPAY | PROVIDERS: Emergency Provider Emergency Medicine; Visit Provider Internal Medicine | DX: I48.91 Unspecified atrial fibrillation (principal) | CPT/HCPCS: 93010 ==

== ENCOUNTER → 2023-04-18 15:58 | Outpatient (BNV) | payer MEDICAID, SELFPAY | PROVIDERS: Admitting Provider Internal Medicine; Emergency Provider Emergency Medicine; Visit Provider Internal Medicine | DX: I48.91 Unspecified atrial fibrillation (principal); J10.1 Influenza due to other identified influenza virus with other respiratory manifestations | CPT/HCPCS: 99222; 99232; 99239; G0180 ==

== ENCOUNTER → 2023-04-18 15:58 | Outpatient (BNV) | payer MEDICAID, SELFPAY | PROVIDERS: Admitting Provider Internal Medicine; Emergency Provider Emergency Medicine; Visit Provider Internal Medicine | DX: I48.91 Unspecified atrial fibrillation (principal); J10.1 Influenza due to other identified influenza virus with other respiratory manifestations | CPT/HCPCS: 99223 ==

== ENCOUNTER 2023-05-04 13:56 | Outpatient (AMB) | payer MEDICAID, SELFPAY ==
[2023-05-04 14:27] VITALS: BP 139/105; PULSE 84; BMI 29.7
--- NOTE | 2023-05-04 14:27 | MHC.OFFVIS ---
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 Her last prior visit to our office was 12/18/2020. She was seen in the hospital, during admission in March for influenza A and AFib RVR. Today she reports she has been feeling generally well since her hospital discharge. She is fully recovered and reports good activity tolerance. She is the primary caregiver her of her handicapped adult son. She has no concerning heart palpitations. No chest discomfort, shortness of breath, PND, orthopnea or edema. No lightheadedness, presyncope, syncope, falls. She is taking meds as directed. She has been on her Eliquis with no signs of bleeding. [facility] Medical History HTN (hypertension) New onset a-fib Surgical History History of cardioversion (~09/2020) H/O tooth extraction Family History Father No problems noted. Mother No problems noted. Social History Household Members: Family Housing: Apartment Do you presently have visiting nurse or other home services: No Alcohol intake: current Alcohol intake frequency: former alcohol drinker Patient Tobacco Use Status: Former Tobacco user Quit Date: about 2017 Second Hand Smoke Exposure: No Substance Use Type: Marijuana Advance Directives Date on File: 09/16/20 service: No Current occupational status: employed Review of Systems Const All systems reviewed & are unremarkable except as noted in HPI and below ENT Denies dizziness Card Details: palpitations at times Denies chest pain, Denies chest pain at rest, Denies chest pain with activity, Denies rapid heart rate, Denies pedal edema, Denies edema, Denies leg edema, Denies lightheadedness, Denies palpitations, Denies dyspnea, Denies dyspnea on exertion and Denies orthopnea Resp Denies cough, Denies dyspnea and Denies dyspnea on exertion GI Denies hematochezia and Denies change in stool character Musc Denies abnormal gait, Denies limited range of motion, Denies muscle cramps, Denies muscle weakness, Denies numbness, Denies radiating pain into limb, Denies stiffness and Denies tingling Neuro Denies abnormal gait, Denies dizziness, Denies numbness and Denies tingling Endo Denies palpitations Physical Exam Vital Signs: Last Vital Signs Pulse 84 05/04/23 14:27 BP 139/105 H 05/04/23 14:27 BMI result Body Mass Index 29.7 Const General: cooperative, healthy appearing, comfortable and no acute distress Orientation/consciousness: patient oriented x3 Neck Neck: Yes normal visual inspection Resp Effort & Inspection: normal respiratory effort Auscultation: clear to auscultation bilaterally, no crackles, no rales, no rhonchi and no wheezes Cardio Jugular venous distension: no JVD Rate: regular rate Rhythm: abnormal rhythm Heart sounds: S1 normal heart sound present, S2 normal heart sound present, no murmurs and no rubs Neuro General: patient oriented x3 Extrem General: Yes normal to inspection and No no pedal edema Psych Appearance: grossly normal Mental Status: mental status grossly normal Speech and movement: Normal speech and movement present Assessment & Plan Assessment & Plan (1) PAF (paroxysmal atrial fibrillation): Code(s): I48.0 - Paroxysmal atrial fibrillation Plan: History of atrial fibrillation, 1st diagnosed in 2020. She did have cardiomyopathy at that time with EF down to 30-35%. She did have TERRY cardioversion and was placed on amiodarone and metoprolol. She was last seen in the office 12/18/2020. Last echo, limited study done on 07/03/2021 showed EF 54%, apical inferior and mid inferior segments hypokinetic. Last month she was admitted to [facility] with influenza A. Troponin levels mildly elevated. She was noted to have AFib RVR at that time and was treated with rate slowing agents including diltiazem drip. She was eventually transition to metoprolol 100 mg daily. She had been on 50 mg previously. She had not been taking her anticoagulation for the last few years. She also had stopped amiodarone. She was taking the metoprolol, prescribed by her PCP. - today she reports she has been doing good since her hospital discharge. She has fully recovered from her influenza A. She has not noticing chest discomfort or heart palpitations. Her pulse is irregularly irregular on examination. Will check a Holter monitor to assess AFib rates and to see if paroxysmal or persistent at this time. Will check echocardiogram to assess EF, wall motion. She may need nuclear stress test going forward. Will continue on current meds including metoprolol and Eliquis. Reason for each medication reviewed with her in detail. Stroke risk with AFib discussed. Reviewed reduction in caffeinated beverages, stimulants. She denies any concern for sleep apnea. May need to assess going forward due to her AFib. Cardiology follow-up in 4-6 weeks, sooner if needed (2) Cardiomyopathy: Code(s): I42.9 - Cardiomyopathy, unspecified Plan: History of cardiomyopathy in 2020 in the setting of new finding of AFib. EF may have been reduced due to tachycardia. Patient was lost to follow-up and recently admitted and Cardiology care reinstituted. Checking echocardiogram as above. (3) Essential hypertension: Code(s): I10 - Essential (primary) hypertension Plan: Elevated on exam at 139/105. She is on metoprolol XL 100 mg daily. Checking Holter and echo. Continue current meds. Plan recheck at next visit with medication adjustments as warranted (4) Hospital discharge follow-up: Code(s): Z09 - Encounter for follow-up examination after completed treatment for conditions other than malignant neoplasm Plan: As above Plan Time spent on chart review, documentation, interview and assessment Orders: Orders ECG 3 day holter monitor 05/04/23 I42.9 - Cardiomyopathy, unspecified, I48.0 - Paroxysmal atrial fibrillation CA echo transthoracic complete 05/04/23 I42.9 - Cardiomyopathy, unspecified, I48.0 - Paroxysmal atrial fibrillation Medications: New furosemide 20 mg PO DAILY PRN 30 tabs 0RF swelling metoprolol succinate ER Take 1 tablet daily 100 mg PO DAILY 90 tabs 1RF Changed From apixaban (Eliquis) 5 mg PO BID 60 tabs 0RF To apixaban (Eliquis) 5 mg PO BID 90 days 180 tabs 3RF Discontinued metoprolol succinate ER Overdue for appointment. Please call [phone] to schedule an appointment in order to receive more refills. Discontinued Reason: Doctor's Order 100 mg (2 x 50 mg) PO DAILY 60 tabs 0RF Coding Level of Care Code Est Pt Level 4 (57462) Diagnoses PAF (paroxysmal atrial fibrillation) I48.0 Cardiomyopathy I42.9 Essential hypertension I10 Hospital discharge follow-up Z09 Time Spent (min) 28
== END 2023-05-04 14:56 | disposition home or self-care (01) ==
PROVIDERS: Visit Provider Nurse Practitioner Family
DX: I48.0 Paroxysmal atrial fibrillation (principal); I42.9 Cardiomyopathy, unspecified; I10 Essential (primary) hypertension; Z09 Encounter for follow-up examination after completed treatment for conditions other than malignant neoplasm
CPT/HCPCS: 99214

== ENCOUNTER → 2023-05-04 13:56 | Outpatient (BNVA) | payer MEDICAID, SELFPAY | PROVIDERS: Visit Provider Nurse Practitioner Family | DX: Z09 Encounter for follow-up examination after completed treatment for conditions other than malignant neoplasm (principal); I48.0 Paroxysmal atrial fibrillation; I42.9 Cardiomyopathy, unspecified; I10 Essential (primary) hypertension | CPT/HCPCS: 99212 ==

== ENCOUNTER 2023-05-22 14:54 | Outpatient (AMB) | payer MEDICAID, SELFPAY ==
[2023-05-22 15:05] VITALS: BP 140/90; PULSE 71; O2SAT 97
--- NOTE | 2023-05-22 15:05 | HO.NEPHOV_ITS ---
HPI HPI Comments History of Present Illness Details I had the privilege of seeing Sarah in consultation for her chronic kidney disease and hypertension. She is not a diabetic. She has AFib with RVR and history of infarct. She closely follows up with cardiology. She denies any carotid stenosis, peripheral arterial disease. Imaging studies have ruled out renovascular disease. She does not have any epistaxis, photosensitivity, skin rashes, hematuria, nausea, vomiting, diarrhea, dizziness. She denies taking excessive nonsteroidal anti-inflammatories. She has no history of malignancy. Her blood pressure is better controlled now. Her mother was on hemodialysis. [facility] Medical History (Updated 05/22/23 @ 15:28 by Justin Conner MD) HTN (hypertension) New onset a-fib Surgical History History of cardioversion (~09/2020) H/O tooth extraction Family History Father No problems noted. Mother No problems noted. Social History Household Members: Family Housing: Apartment Do you presently have visiting nurse or other home services: No Alcohol intake: current Alcohol intake frequency: former alcohol drinker Patient Tobacco Use Status: Former Tobacco user Quit Date: about 2017 Second Hand Smoke Exposure: No Substance Use Type: Marijuana Advance Directives Date on File: 09/16/20 service: No Current occupational status: employed Vital Signs 05/22/23 15:05 Height 5 ft 9 in Weight 203 lb 2 oz BMI 30.0 BP 140/90 H Blood Pressure Location Rt brachial Position Sitting Pulse 71 Pulse Source Pulse Oximeter Pulse Oximetry (%) 97 Oxygen Delivery Method Room Air Physical Exam Vital Signs: Last Vital Signs Pulse 71 05/22/23 15:05 BP 140/90 H 05/22/23 15:05 Pulse Ox 97 05/22/23 15:05 Oxygen Delivery Method Room Air 05/22/23 15:05 BMI result Body Mass Index 30.0 Const General: comfortable and no acute distress Orientation/consciousness: patient oriented x3 HEENT Head: Yes normocephalic Mouth: Normal oral and palatal mucosa present Eyes EOM: EOMs intact bilaterally Neck Neck: Yes supple Resp Auscultation: clear to auscultation bilaterally Cardio Jugular venous distension: no JVD Rate: regular rate GI Palpation (GI): Soft to palpation Auscultation: normal bowel sounds General: Yes no CVA tenderness Back/Spine/Pelvis Back: no CVA tenderness Skin General skin exam: no rashes or lesions noted Neuro General: patient oriented x3 and moves all extremities Extrem General: Yes no pedal edema Assessment & Plan Assessment & Plan (1) CKD (chronic kidney disease) stage 3, GFR 30-59 ml/min: Code(s): N18.30 - Chronic kidney disease, stage 3 unspecified Qualifiers: Chronic kidney disease stage 3 subtype: stage 3a (GFR 45-59) Qualified Code(s): N18.31 - Chronic kidney disease, stage 3a (2) HTN (hypertension): Code(s): I10 - Essential (primary) hypertension Qualifiers: Hypertension type: primary hypertension Qualified Code(s): I10 - Essential (primary) hypertension Plan Sarah has mild CKD. She is hypertensive. Doppler of her renal arteries ruled out any significant renal artery stenosis. She does not take any nonsteroidal anti-inflammatories. She is trying to minimize sodium in the diet. Cardiology colleagues are closely monitoring her. Her blood pressure needs to be maintain a goal. We could increase her losartan to 75 mg if her serum potassium and renal functions permit. I did not make any medication changes today. Her mother was on dialysis and she wants to make sure her renal functions are stable given her cardiac issues. More than 50% of the time spent to discuss about CKD, hypertension and its management strategies. I answered all questions. Follow- up appointment given Orders: Orders Calcium Today I10 - Essential (primary) hypertension, N18.30 - Chronic kidney disease, stage 3 unspecified Immunofixation Pnl, Serum Today I10 - Essential (primary) hypertension, N18.30 - Chronic kidney disease, stage 3 unspecified Creatinine Today I10 - Essential (primary) hypertension, N18.30 - Chronic kidney disease, stage 3 unspecified Blood Urea Nitrogen Today I10 - Essential (primary) hypertension, N18.30 - Chronic kidney disease, stage 3 unspecified Electrolytes Today I10 - Essential (primary) hypertension, N18.30 - Chronic kidney disease, stage 3 unspecified Protein Creatinine Ratio, Ur Today I10 - Essential (primary) hypertension, N18.30 - Chronic kidney disease, stage 3 unspecified Coding Level of Care Code New Pt Level 4 (13477) Diagnoses Stage 3a chronic kidney disease N18.31 Chronic kidney disease stage 3 subtype: stage 3a (GFR 45-59) Primary hypertension I10 Hypertension type: primary hypertension Results Reviewed Nephrology Results: Hgb 14.0 g/dl (12.0-16.0) 04/18/23 WBC 3.8 X10*3/uL (4.8-10.8) L 04/18/23 Plt Count 182 X10*3/uL (160-400) 04/18/23 Sodium 137 mmol/L (135-145) 04/19/23 Potassium 4.1 mmol/L (3.3-5.1) 04/19/23 Chloride 103 mmol/L (96-108) 04/19/23 Carbon Dioxide 24 mmol/L (22-29) 04/19/23 BUN 12 mg/dL (9-16) 04/19/23 Creatinine 1.11 mg/dL (0.5-1.4) 04/19/23 Calcium 8.6 mg/dL (8.4-10.2) 04/19/23 Renal US 04/10/21
== END 2023-05-22 15:22 | disposition home or self-care (01) ==
PROVIDERS: PCP Registered Nurse; Referring Provider Internal Medicine; Visit Provider Internal Medicine Nephrology
DX: N18.31 Chronic kidney disease, stage 3a (principal); I10 Essential (primary) hypertension
CPT/HCPCS: 99204

== ENCOUNTER → 2023-05-22 14:54 | Outpatient (BNVA) | payer MEDICAID, SELFPAY | PROVIDERS: PCP Registered Nurse; Referring Provider Internal Medicine; Visit Provider Internal Medicine Nephrology | DX: I12.9 Hypertensive chronic kidney disease with stage 1 through stage 4 chronic kidney disease, or unspecified chronic kidney disease (principal); N18.31 Chronic kidney disease, stage 3a | CPT/HCPCS: 99202 ==

== ENCOUNTER → 2023-07-01 12:44 | Outpatient (REF) | payer MEDICAID, SELFPAY ==
--- NOTE | 2023-07-01 12:48 | HM_ITS ---
Conclusion: 1. Patient was monitored for total period of 1 day and 23 hours 2. Baseline was atrial fibrillation with average heart of 83 beats per minute with adequate rate control 3. Frequent isolated PVCs noted with total burden of 1.5% 4. No significant pauses noted 5. No patient reported events MTDD
--- NOTE | 2023-07-01 12:48 | CA_ITS ---
Transthoracic Echocardiogram Patient (Last, First, Middle): Sarah Desouza, Gender: Female Date of : 1965 Age: 57 Procedure Date: 07/01/2023 Procedure Type: Transthoracic Echocardiogram Location: OP Height: 175.26 cm Weight: 91.17 kg BSA: 2.07 m2 Heart Rate: bpm BP: 152 / 92 mmHg Liner Inserter: CANDE Referring MD: Shana Suero CONCRETE MIXER TRUCK DRIVER-Yg Business Services Analyst: Zan Fischer MD Symptoms: I48.0 - Paroxysmal atrial fibrillation Study Quality: Fair ECG Rhythm: Atrial Fibrillation Conclusions: - 1. Normal LV ejection fraction 55-60% 2. Biatrial enlargement with severe left and moderate right enlargement 3. [id number] mitral regurgitation 4. Moderately elevated right ventricular systolic pressure with mildly elevated right atrial pressures 5. No gross pericardial effusion Findings Procedure Information The patient declines contrast. Left Ventricle Normal left ventricular size, thickness, and systolic function. The visually estimated ejection fraction is between 55-60%. Diastolic function is indeterminate on the basis of available data. Right Ventricle Normal right ventricular cavity size and systolic function. Atria The left atrium is severely dilated. There is no evidence of interatrial shunt. The right atrium is moderately dilated. Aortic Valve Normal aortic valve structure and function. There is no aortic valve stenosis. There is no aortic valve regurgitation. Mitral Valve There is mild anterior mitral leaflet thickening. There is mild posterior mitral leaflet prolapse. There is mild to moderate mitral valve regurgitation. There is no mitral valve stenosis. Pulmonic Valve The pulmonic valve is likely normal. There is mild pulmonic valve regurgitation. Tricuspid Valve Normal tricuspid valve structure. There is mild tricuspid valve regurgitation. Mildly elevated right atrial pressure. Moderate pulmonary hypertension is present. Great Vessels All visible segments of the aorta are normal in size. The pulmonary artery was not well visualized. There is no dilatation of the ascending aorta measuring 3.30 cm. Venous The inferior vena cava is mildly dilated and collapses greater than 50% with inspiration. Pericardium/Pleural There is no evidence of pericardial effusion. Prior Study Comparison Changes noted compared to prior study dated: 07/03/2021. RV systolic pressure is elevated Measurements 2D Linear Measurements IVSd: 1.12 0.6-0.9/0.6-1.0 cm LVIDd: 4.42 3.9-5.3/4.2-5.9 cm LVIDd Index: 2.14 2.4-3.2/2.2-3.1 cm/m2 LVIDs: 2.65 2.0-3.6 cm LVPWd: 1.06 0.7-1.1 cm LA Diam: 3.60 2.7-3.8/3.0-4.0 cm LAIDs Index: 1.74 1.5-2.3 cm/m2 LV Mass: 209.19 67-162/88-224 g LV Mass Index: 101.06 43-95/49-115 g/m2 LVOT Diam: 2.10 3.0+(-)1.3 cm Mitral Valve MV Pk E: 1.35 MV Decel Time: 168.00 E'Lateral: 10.50 E'Medial: 6.11 E/E' Med: 22.10 E/E' Lat: 12.90 PHT: 49.00 MVA PHT: 4.49 Decel [place]: 8.14 Aortic Valve AoV Pk Wood: 0.94 AoV Mn Wood: 0.62 AoV VTI: 0.17 AoV Pk Grad: 3.00 Aov Mn Grad: 2.00 REGINA Cont.VTI: 2.68 LVOT LVOT Pk Wood: 0.85 LVOT Mn Wood: 0.48 LVOT VTI: 0.14 LVOT Pk Grad: 3.00 LVOT Mn Grad: 1.00 LVOT Diam: 2.10 LVOT Area: 3.46 Diastolic Function MV Pk E: 1.35 E'Medial: 6.11 E/E' Med: 22.10 E' Laterial: 10.50 E/E' Lat: 12.90 Right Ventricle TAPSE (mm): 19.40 TVS' Wood: 10.30 Tricuspid Valve TR Pk Wood: 3.65 TR Pk Grad: 53.00 RA Press: 8.00 RVSP: 61.00 Great Vessels Aorta Sinus of Valsalva: 3.57 2.0-3.[address] [place]: 2.77 1.7-3.4 cm Ao Asc: 3.30 2.1-3.4 cm Updated in Other Vendor System with Status of Final Zan Fischer MD electronically signed on 07/02/2023 5:51:36 PM with status of Final
== END ==
LOC: HO.CARD 12:44
PROVIDERS: Visit Provider Nurse Practitioner Family
DX: I42.9 Cardiomyopathy, unspecified (principal); I48.0 Paroxysmal atrial fibrillation
CPT/HCPCS: 93225; 93306

== ENCOUNTER → 2023-07-01 12:48 | Outpatient (BNV) | payer MEDICAID, SELFPAY | PROVIDERS: Visit Provider Internal Medicine Cardiovascular Disease | DX: I48.91 Unspecified atrial fibrillation (principal) | CPT/HCPCS: 93227; 93306 ==

== ENCOUNTER 2023-07-09 14:19 | Outpatient (AMB) | payer MEDICAID, SELFPAY ==
[2023-07-09 14:55] VITALS: BP 140/60; PULSE 74; BMI 32.0
--- NOTE | 2023-07-09 14:55 | MHC.OFFVIS ---
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 She was not seen in our office between 12/18/2020 and 05/04/2023. She did have a hospitalization, March 2023 for influenza A and AFib RVR. On last visit an echocardiogram and Holter monitor were ordered. Today she reports she has been feeling well with no concerning symptoms. She denies heart palpitations. No chest discomfort at rest or with activity. No shortness of breath, lightheadedness, presyncope, syncope, PND, orthopnea or edema. She reports good activity tolerance. No bleeding issues. Taking meds as directed. [facility] Medical History HTN (hypertension) New onset a-fib Surgical History History of cardioversion (~09/2020) H/O tooth extraction Family History Father No problems noted. Mother No problems noted. Social History Household Members: Family Housing: Apartment Do you presently have visiting nurse or other home services: No Alcohol intake: current Alcohol intake frequency: former alcohol drinker Patient Tobacco Use Status: Former Tobacco user Quit Date: about 2017 Second Hand Smoke Exposure: No Substance Use Type: Marijuana Advance Directives Date on File: 09/16/20 service: No Current occupational status: employed Review of Systems Const All systems reviewed & are unremarkable except as noted in HPI and below ENT Denies dizziness Card Denies chest pain, Denies chest pain at rest, Denies chest pain with activity, Denies rapid heart rate, Denies pedal edema, Denies edema, Denies leg edema, Denies lightheadedness, Denies palpitations, Denies dyspnea, Denies dyspnea on exertion and Denies orthopnea Resp Denies cough, Denies dyspnea and Denies dyspnea on exertion GI Denies hematochezia and Denies change in stool character Musc Denies abnormal gait, Denies limited range of motion, Denies muscle cramps, Denies muscle weakness, Denies numbness, Denies radiating pain into limb, Denies stiffness and Denies tingling Neuro Denies abnormal gait, Denies dizziness, Denies numbness and Denies tingling Endo Denies palpitations Physical Exam Vital Signs: Last Vital Signs Pulse 74 07/09/23 14:55 BP 140/60 H 07/09/23 14:55 BMI result Body Mass Index 32.0 Const General: cooperative, healthy appearing, comfortable and no acute distress Orientation/consciousness: patient oriented x3 Neck Neck: Yes normal visual inspection Resp Effort & Inspection: normal respiratory effort Auscultation: clear to auscultation bilaterally, no crackles, no rales, no rhonchi and no wheezes Cardio Jugular venous distension: no JVD Rate: regular rate Rhythm: regular rhythm Heart sounds: S1 normal heart sound present, S2 normal heart sound present, no murmurs and no rubs Neuro General: patient oriented x3 Extrem General: Yes normal to inspection and No no pedal edema Psych Appearance: grossly normal Mental Status: mental status grossly normal Speech and movement: Normal speech and movement present Assessment & Plan Assessment & Plan (1) PAF (paroxysmal atrial fibrillation): Code(s): I48.0 - Paroxysmal atrial fibrillation Plan: History of atrial fibrillation, 1st diagnosed in 2020. She did have cardiomyopathy at that time with EF down to 30-35%. She did have TERRY cardioversion and was placed on amiodarone and metoprolol. She was was not seen for follow-up between 12/18/2020 and 05/04/2023. She was admitted to [facility] March 2023 with influenza and AFib RVR, managed medically. Her prior metoprolol was increased from 50 mg up to 100 mg daily. She has been taking anticoagulation for many years. An echocardiogram was done 07/01/2023 showing EF 55-60%, [id number] mitral regurgitation left atrium severely dilated, right atrium moderately dilated. A Holter monitor was done on 07/01/2023 for 2 days showing atrial fibrillation with average heart rate 83. Today she reports feeling well with no concerning symptoms. She denies heart palpitations, shortness of breath or fatigue. Will continue to treat her with heart rate control using metoprolol. Will continue Eliquis for anticoagulation. Labs done 04/19/2023 showed creatinine 1.11, labs 04/18/2023 showed hematocrit 42.6. The importance of good med compliance reviewed with her. Stroke risk with atrial fibrillation discussed. Reviewed reduction in caffeinated beverages, stimulants. Cardiology follow-up in 6 months sooner if needed (2) Cardiomyopathy: Code(s): I42.9 - Cardiomyopathy, unspecified Plan: History of cardiomyopathy in 2020 in the setting of new finding of AFib. EF may have been reduced due to tachycardia. Patient was lost to follow-up and recently admitted and Cardiology care reinstituted. Recent echo showing normal EF. (3) Essential hypertension: Code(s): I10 - Essential (primary) hypertension Plan: Mildly elevated today at 140/60. She continues on metoprolol XL 100 mg daily and losartan. Instructed on periodic blood pressure checks at home and call if systolic running greater than 140. Continue current meds. Has Nephrology follow-up in August Plan Time spent on chart review, documentation, interview and assessment Coding Level of Care Code Est Pt Level 4 (19015) Diagnoses PAF (paroxysmal atrial fibrillation) I48.0 Cardiomyopathy I42.9 Essential hypertension I10 Time Spent (min) 28
== END 2023-07-09 15:20 | disposition home or self-care (01) ==
PROVIDERS: PCP Registered Nurse; Visit Provider Nurse Practitioner Family
DX: I48.0 Paroxysmal atrial fibrillation (principal); I42.9 Cardiomyopathy, unspecified; I10 Essential (primary) hypertension
CPT/HCPCS: 99214

== ENCOUNTER → 2023-07-09 14:19 | Outpatient (BNVA) | payer MEDICAID, SELFPAY | PROVIDERS: PCP Registered Nurse; Visit Provider Nurse Practitioner Family | DX: I48.0 Paroxysmal atrial fibrillation (principal); I42.9 Cardiomyopathy, unspecified; I10 Essential (primary) hypertension | CPT/HCPCS: 99212 ==

== ENCOUNTER 2023-07-20 18:01 | Outpatient (REF) | payer MEDICAID, SELFPAY | END 2023-07-20 18:02 | disposition home or self-care (01) | LOC: HO.HHCLNP 18:01 | PROVIDERS: Visit Provider Nurse Practitioner Family | DX: R30.0 Dysuria (principal) | CPT/HCPCS: 87086 ==

== ENCOUNTER 2023-07-27 11:26 | Outpatient (REF) | payer MEDICAID, SELFPAY ==
[2023-07-27 14:07] LABS: MANUAL DIFF FLAG NO
[2023-07-27 14:08] LABS: Basophils Percent Auto 0.8 % (0-2); Eosinophils Absolute Auto 0.3 X10*3/uL (0.0-0.4); Eosinophils Percent Auto 5.9 % (0-4); Hematocrit 43.3 % (37.0-47.0); Hemoglobin 13.6 g/dl (12.0-16.0); Imm Gran Abs Auto 0.01 X10*3/uL (0.00-0.03); Imm Gran Pct Auto 0.2 % (0.0-0.4); Lymphocytes Absolute Auto 2.4 X10*3/uL (1.2-4.9); Lymphocytes Percent Auto 45.8 % (20-40); Mean Corpuscular HGB Conc 31.4 g/dl (31.0-35.0); Mean Corpuscular Hemoglobin 28.8 pg (27.0-33.0); Mean Corpuscular Volume 91.7 fL (80.0-98.0); Mean Platelet Volume 11.3 fL (9.4-12.3); Monocytes Absolute Auto 0.4 X10*3/uL (0.1-1.2); Monocytes Percent Auto 6.7 % (2-11); Neutrophils Absolute Auto 2.1 x10*3/uL (2.0-8.3); Neutrophils Percent Auto 40.6 % (45-73); Platelet Count 304 X10*3/uL (160-400); Red Blood Count 4.72 X10*6/uL (4.20-5.50); Red Cell Distribution Width 13.3 % (11.0-16.0); White Blood Count 5.2 X10*3/uL (4.8-10.8)
[2023-07-27 14:34] LABS: Estimated Average Glucose 117 mg/dL; Hemoglobin A1c % 5.7 % (<6.0)
[2023-07-27 14:56] LABS: B Type Natriuretic Peptide 282 pg/mL (<100)
[2023-07-27 14:58] LABS: Alanine Aminotransferase 11 U/L (0-31); Albumin Level 3.9 g/dL (3.5-5.0); Alkaline Phosphatase 113 U/L (39-117); Anion Gap 9 (12-20); Aspartate Amino Transferase 17 U/L (5-31); Bilirubin Total 0.7 mg/dL (0.0-1.0); Blood Urea Nitrogen 19 mg/dL (9-16); Carbon Dioxide 30 mmol/L (22-29); Chloride 106 mmol/L (96-108); Cholesterol 127 mg/dL (<200); Estimated Glomerular Filt Rate 46; Glucose Random 133 mg/dL (60-115); HDL Cholesterol 51 mg/dL (>40); LDL Cholesterol Calculated 62 mg/dL (<100); Potassium 4.3 mmol/L (3.3-5.1); Sodium 141 mmol/L (135-145); Total Protein 7.2 g/dL (6.5-8.0); Triglycerides 72 mg/dL (<150)
== END 2023-07-27 11:27 | disposition home or self-care (01) ==
LOC: HO.HHCL 11:26
PROVIDERS: Visit Provider Nurse Practitioner Family
DX: I10 Essential (primary) hypertension (principal); N18.31 Chronic kidney disease, stage 3a
CPT/HCPCS: 36415; 80053; 80061; 83036; 83880; 85025

== ENCOUNTER → 2023-08-07 14:45 | Outpatient (BNV) | payer MEDICAID, SELFPAY | PROVIDERS: PCP Nurse Practitioner Family; Visit Provider Radiology Diagnostic Radiology | DX: Z12.31 Encounter for screening mammogram for malignant neoplasm of breast (principal) | CPT/HCPCS: 77063; 77067 ==

== ENCOUNTER 2023-08-07 14:46 | Outpatient (REF) | payer MEDICAID, SELFPAY | END 2023-08-07 14:47 | disposition home or self-care (01) | LOC: HO.MAMMO 14:46 | PROVIDERS: PCP Nurse Practitioner Family; Visit Provider Nurse Practitioner Family | DX: Z12.31 Encounter for screening mammogram for malignant neoplasm of breast (principal) | CPT/HCPCS: 77063; 77067 ==

== ENCOUNTER 2023-09-30 13:53 | Outpatient (AMB) | payer MEDICAID, SELFPAY ==
--- NOTE | 2023-09-30 14:05 | HO.NEPHOV ---
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 She is not a diabetic. She has AFib with RVR and history of infarct. She closely follows up with cardiology. She denies any carotid stenosis, peripheral arterial disease. Imaging studies have ruled out renovascular disease. She does not have any epistaxis, photosensitivity, skin rashes, hematuria, nausea, vomiting, diarrhea, dizziness. She denies taking excessive nonsteroidal anti-inflammatories. She has no history of malignancy. Her blood pressure is better controlled now. Her mother was on hemodialysis [facility] Medical History HTN (hypertension) New onset a-fib Surgical History History of cardioversion (~09/2020) H/O tooth extraction Family History Father No problems noted. Mother No problems noted. Social History Household Members: Family Housing: Apartment Do you presently have visiting nurse or other home services: No Alcohol intake: current Alcohol intake frequency: former alcohol drinker Patient Tobacco Use Status: Former Tobacco user Second Hand Smoke Exposure: No Substance Use Type: Marijuana Advance Directives Date on File: 09/16/20 service: No Current occupational status: employed Review of Systems Const All systems reviewed & are unremarkable except as noted in HPI and below Physical Exam Vital Signs: Last Vital Signs Pulse 85 09/30/23 14:07 BP 130/90 H 09/30/23 14:07 Pulse Ox 97 09/30/23 14:07 Oxygen Delivery Method Room Air 09/30/23 14:07 Const General: comfortable and no acute distress Orientation/consciousness: patient oriented x3 HEENT Head: Yes normocephalic Mouth: Normal oral and palatal mucosa present Eyes EOM: EOMs intact bilaterally Neck Neck: Yes supple Resp Auscultation: clear to auscultation bilaterally Cardio Jugular venous distension: no JVD Rate: regular rate GI Palpation (GI): Soft to palpation Auscultation: normal bowel sounds General: Yes no CVA tenderness Back/Spine/Pelvis Back: no CVA tenderness Skin General skin exam: no rashes or lesions noted Neuro General: patient oriented x3 and moves all extremities Extrem General: Yes no pedal edema Results Reviewed Nephrology Results: Hgb 13.6 g/dl (12.0-16.0) 07/27/23 WBC 5.2 X10*3/uL (4.8-10.8) 07/27/23 Plt Count 304 X10*3/uL (160-400) 07/27/23 Sodium 141 mmol/L (135-145) 07/27/23 Potassium 4.3 mmol/L (3.3-5.1) 07/27/23 Chloride 106 mmol/L (96-108) 07/27/23 Carbon Dioxide 30 mmol/L (22-29) H 07/27/23 BUN 19 mg/dL (9-16) H 07/27/23 Creatinine 1.19 mg/dL (0.5-1.4) 07/27/23 Calcium 9.0 mg/dL (8.4-10.2) 07/27/23 Assessment & Plan Assessment & Plan (1) CKD (chronic kidney disease) stage 3, GFR 30-59 ml/min: Code(s): N18.30 - Chronic kidney disease, stage 3 unspecified Category: Medical Qualifiers: Chronic kidney disease stage 3 subtype: stage 3a (GFR 45-59) Qualified Code(s): N18.31 - Chronic kidney disease, stage 3a (2) HTN (hypertension): Code(s): I10 - Essential (primary) hypertension Category: Medical Qualifiers: Hypertension type: primary hypertension Qualified Code(s): I10 - Essential (primary) hypertension Plan Sarah has mild CKD. She is hypertensive. Doppler of her renal arteries ruled out any significant renal artery stenosis. She does not take any nonsteroidal anti-inflammatories. She is trying to minimize sodium in the diet. Cardiology colleagues are closely monitoring her. Her blood pressure needs to be maintain a goal. We could increase her losartan to 75 mg if her serum potassium and renal functions permit. I did not make any medication changes today. Her mother was on dialysis and she wants to make sure her renal functions are stable given her cardiac issues. I answered all questions. Follow-up appointment given Orders: Orders Creatinine Today I10 - Essential (primary) hypertension, N18.31 - Chronic kidney disease, stage 3a Immunofixation Pnl, Serum Today I10 - Essential (primary) hypertension, N18.31 - Chronic kidney disease, stage 3a Vitamin D 25-OH Total Today I10 - Essential (primary) hypertension, N18.31 - Chronic kidney disease, stage 3a Blood Urea Nitrogen Today I10 - Essential (primary) hypertension, N18.31 - Chronic kidney disease, stage 3a Electrolytes Today I10 - Essential (primary) hypertension, N18.31 - Chronic kidney disease, stage 3a Calcium Today I10 - Essential (primary) hypertension, N18.31 - Chronic kidney disease, stage 3a Parathyroid Hormone Intact Today I10 - Essential (primary) hypertension, N18.31 - Chronic kidney disease, stage 3a Protein Creatinine Ratio, Ur Today I10 - Essential (primary) hypertension, N18.31 - Chronic kidney disease, stage 3a Coding Level of Care Code Est Pt Level 4 (83100) Diagnoses Stage 3a chronic kidney disease N18.31 Chronic kidney disease stage 3 subtype: stage 3a (GFR 45-59) Primary hypertension I10 Hypertension type: primary hypertension
[2023-09-30 14:07] VITALS: BP 130/90; PULSE 85; O2SAT 97
== END 2023-09-30 14:47 | disposition home or self-care (01) ==
PROVIDERS: PCP Registered Nurse; Referring Provider Registered Nurse; Visit Provider Internal Medicine Nephrology
DX: N18.31 Chronic kidney disease, stage 3a (principal); I10 Essential (primary) hypertension
CPT/HCPCS: 99214

== ENCOUNTER → 2023-09-30 13:53 | Outpatient (BNVA) | payer MEDICAID, SELFPAY | PROVIDERS: PCP Registered Nurse; Visit Provider Internal Medicine Nephrology | DX: I12.9 Hypertensive chronic kidney disease with stage 1 through stage 4 chronic kidney disease, or unspecified chronic kidney disease (principal); N18.31 Chronic kidney disease, stage 3a | CPT/HCPCS: 99212 ==

== ENCOUNTER 2023-12-14 17:56 | Outpatient (REF) | payer MEDICAID, SELFPAY ==
[2023-12-15 09:30] LABS: Bacterial Vaginosis PCR POSITIVE (Negative); Candida Group PCR NOT DETECTED (Not Detect); Candida glab krusei PCR NOT DETECTED (Not Detect); Trichomonas vaginalis PCR NOT DETECTED (Not Detect)
[2023-12-16 16:17] LABS: HPV mRNA E6/E7 Not Detected (Not Detected)
[2023-12-17 13:56] LABS: C. trachomatis RNA TMA NOT DETECTED; N. gonorrhoeae RNA TMA NOT DETECTED; Trichomonas (NAAT) NOT DETECTED
== END 2023-12-14 17:57 | disposition home or self-care (01) ==
LOC: HO.HHCLNP 17:56
PROVIDERS: Visit Provider Nurse Practitioner Family
DX: Z12.4 Encounter for screening for malignant neoplasm of cervix (principal)
CPT/HCPCS: 0352U; 36415; 87491; 87591; 87624; 87661; 88175

== ENCOUNTER 2023-12-24 13:38 | Outpatient (AMB) | payer MEDICAID, SELFPAY ==
--- NOTE | 2023-12-24 14:00 | A.OFFVIS_ITS ---
Vital Signs 12/24/23 14:01 Height 5 ft 9 in Weight 211 lb 10.3 oz BMI 31.3 BP 130/80 Blood Pressure Location Lt brachial Position Sitting Pulse 74 Pulse Source Pulse Oximeter Intake Visit Reasons: 6mnth f/up Allergies No Known Allergies Allergy (Verified 12/24/23 14:03) Medication List - Last Reconciled 12/24/23 by Shana Suero, SURGICAL INSTRUMENTS INSPECTOR-C apixaban (Eliquis) 5 mg PO BID 90 days furosemide 20 mg PO DAILY PRN 90 days losartan 50 mg PO QAM metoprolol succinate ER 100 mg PO DAILY zolpidem 5 mg PO BEDTIME PRN HPI HPI 6mnth f/up: Details: Sarah is a 57-year-old female with past medical history of hypertension, atrial fibrillation, cardiomyopathy. She was not seen in our office between 12/18/2020 and 05/04/2023. She did have a hospitalization, March 2023 for influenza A and AFib RVR. She was treated with heart rate control at that time. Today she presents for follow-up. Today she reports she has been feeling well with no concerning symptoms. She describes having increased shortness of breath and some lower leg swelling in October 2023. She tells me at that time her diuretic was increased from 1 pill up to 2 pills daily. She admits that she was eating a high salt diet including pork rinds. She has been cutting down her salt intake. Her breathing has normalized. She has no PND, orthopnea or edema. She denies having any issues with heart palpitations. No chest discomfort at rest or with activity. She reports good activity tolerance. No bleeding issues. Taking meds as directed. [facility] Medical History HTN (hypertension) New onset a-fib Surgical History History of cardioversion (~09/2020) H/O tooth extraction Family History Father No problems noted. Mother No problems noted. Social History Household Members: Family Housing: Apartment Do you presently have visiting nurse or other home services: No Alcohol intake: current Alcohol intake frequency: former alcohol drinker Patient Tobacco Use Status: Former Tobacco user Second Hand Smoke Exposure: No Substance Use Type: Marijuana Advance Directives Date on File: 09/16/20 service: No Current occupational status: employed Review of Systems Const All systems reviewed & are unremarkable except as noted in HPI and below ENT Denies dizziness Card Denies chest pain, Denies chest pain at rest, Denies chest pain with activity, Denies rapid heart rate, Denies pedal edema, Denies edema, Denies leg edema, Denies lightheadedness, Denies palpitations, Denies dyspnea, Denies dyspnea on exertion and Denies orthopnea Resp Denies cough, Denies dyspnea and Denies dyspnea on exertion GI Denies hematochezia and Denies change in stool character Musc Denies abnormal gait, Denies limited range of motion, Denies muscle cramps, Denies muscle weakness, Denies numbness, Denies radiating pain into limb, Denies stiffness and Denies tingling Neuro Denies abnormal gait, Denies dizziness, Denies numbness and Denies tingling Endo Denies palpitations Physical Exam Vital Signs: Last Vital Signs Pulse 74 12/24/23 14:01 BP 130/80 12/24/23 14:01 BMI result Body Mass Index 31.3 Const General: cooperative, healthy appearing, comfortable and no acute distress Orientation/consciousness: patient oriented x3 Neck Neck: Yes normal visual inspection and Yes no JVD Resp Effort & Inspection: normal respiratory effort Auscultation: clear to auscultation bilaterally, no crackles, no rales, no rhonchi and no wheezes Cardio Jugular venous distension: no JVD Rate: regular rate Rhythm: regular rhythm Heart sounds: S1 normal heart sound present, S2 normal heart sound present, no murmurs and no rubs Neuro General: patient oriented x3 Extrem General: Yes normal to inspection Psych Appearance: grossly normal Mental Status: mental status grossly normal Speech and movement: Normal speech and movement present Assessment & Plan Assessment & Plan (1) PAF (paroxysmal atrial fibrillation): Code(s): I48.0 - Paroxysmal atrial fibrillation Category: Medical Plan: History of atrial fibrillation, 1st diagnosed in 2020. She did have cardiomyopathy at that time with EF down to 30-35%. She did have TERRY cardioversion and was placed on amiodarone and metoprolol. She was was not seen for follow-up between 12/18/2020 and 05/04/2023. She was admitted to [facility] March 2023 with influenza and AFib RVR, managed medically. She was off amiodarone. Her prior metoprolol was increased from 50 mg up to 100 mg daily. She has been taking anticoagulation for many years. An echocardiogram was done 07/01/2023 showing EF 55-60%, [id number] mitral regurgitation left atrium severely dilated, right atrium moderately dilated. A Holter monitor was done on 07/01/2023 for 2 days showing atrial fibrillation with average heart rate 83. Today she reports feeling well with no heart palpitations. In the absence of symptoms will continue to treat her with heart rate control using metoprolol. Her atriums are significantly dilated making rhythm control unlikely. Will continue Eliquis for anticoagulation. Labs done 07/27/2023 showed creatinine 1.19, hematocrit 43.3. The importance of good med compliance reviewed with her. Stroke risk with atrial fibrillation discussed. Reviewed reduction in caffeinated beverages, stimulants. Cardiology follow-up in 6 months sooner if needed (2) Cardiomyopathy: Code(s): I42.9 - Cardiomyopathy, unspecified Category: Medical Plan: History of cardiomyopathy in 2020 in the setting of new finding of AFib. EF may have been reduced due to tachycardia. Patient was lost to follow-up and recently admitted and Cardiology care reinstituted. Recent echo showing normal EF. She describes having increased shortness of breath and edema in October 2023. She admitted to me that she was eating a high salt diet including poor groins. Her diuretic was increased by her PCP at that time. She no longer has any symptoms. She does not appear fluid overloaded on exam. (3) Essential hypertension: Code(s): I10 - Essential (primary) hypertension Category: Medical Plan: Normal range today. She continues on metoprolol XL 100 mg daily and losartan. No med changes made. Follows with Nephrology as well. Plan Time spent on chart review, documentation, interview and assessment Coding Level of Care Code Est Pt Level 4 (67031) Diagnoses PAF (paroxysmal atrial fibrillation) I48.0 Cardiomyopathy I42.9 Essential hypertension I10 Time Spent (min) 28
[2023-12-24 14:01] VITALS: BP 130/80; PULSE 74; BMI 31.3
== END 2023-12-24 14:41 | disposition home or self-care (01) ==
PROVIDERS: PCP Registered Nurse; Visit Provider Nurse Practitioner Family
DX: I48.0 Paroxysmal atrial fibrillation (principal); I42.9 Cardiomyopathy, unspecified; I10 Essential (primary) hypertension
CPT/HCPCS: 99214

== ENCOUNTER → 2023-12-24 13:38 | Outpatient (BNVA) | payer MEDICAID, SELFPAY | PROVIDERS: PCP Registered Nurse; Visit Provider Nurse Practitioner Family | DX: I48.0 Paroxysmal atrial fibrillation (principal); I10 Essential (primary) hypertension; I42.9 Cardiomyopathy, unspecified | CPT/HCPCS: 99212 ==

== ENCOUNTER 2024-02-03 13:15 | Outpatient (AMB) | payer MEDICAID, SELFPAY ==
--- NOTE | 2024-02-03 13:46 | HO.NEPHOV_ITS ---
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 She is not a diabetic. She has AFib with RVR and history of infarct. She closely follows up with cardiology. She denies any carotid stenosis, peripheral arterial disease. Imaging studies have ruled out renovascular disease. She does not have any epistaxis, photosensitivity, skin rashes, hematuria, nausea, vomiting, diarrhea, dizziness. She denies taking excessive nonsteroidal anti-inflammatories. She has no history of malignancy. Her blood pressure is better controlled now. Her mother was on hemodialysis [facility] Medical History HTN (hypertension) New onset a-fib Surgical History History of cardioversion (~09/2020) H/O tooth extraction Family History Father No problems noted. Mother No problems noted. Social History Household Members: Family Housing: Apartment Do you presently have visiting nurse or other home services: No Alcohol intake: current Alcohol intake frequency: former alcohol drinker Patient Tobacco Use Status: Former Tobacco user Second Hand Smoke Exposure: No Substance Use Type: Marijuana Advance Directives Date on File: 09/16/20 service: No Current occupational status: employed Review of Systems Const All systems reviewed & are unremarkable except as noted in HPI and below Physical Exam Vital Signs: Last Vital Signs BP 140/110 H 02/03/24 13:49 BMI result Body Mass Index 30.4 Const General: comfortable and no acute distress Orientation/consciousness: patient oriented x3 HEENT Head: Yes normocephalic Mouth: Normal oral and palatal mucosa present Eyes EOM: EOMs intact bilaterally Neck Neck: Yes supple Resp Auscultation: clear to auscultation bilaterally Cardio Jugular venous distension: no JVD Rate: regular rate GI Palpation (GI): Soft to palpation Auscultation: normal bowel sounds General: Yes no CVA tenderness Back/Spine/Pelvis Back: no CVA tenderness Skin General skin exam: no rashes or lesions noted Neuro General: patient oriented x3 and moves all extremities Extrem General: Yes no pedal edema Results Reviewed Nephrology Results: Hgb 13.6 g/dl (12.0-16.0) 07/27/23 WBC 5.2 X10*3/uL (4.8-10.8) 07/27/23 Plt Count 304 X10*3/uL (160-400) 07/27/23 Sodium 141 mmol/L (135-145) 07/27/23 Potassium 4.3 mmol/L (3.3-5.1) 07/27/23 Chloride 106 mmol/L (96-108) 07/27/23 Carbon Dioxide 30 mmol/L (22-29) H 07/27/23 BUN 19 mg/dL (9-16) H 07/27/23 Creatinine 1.19 mg/dL (0.5-1.4) 07/27/23 Calcium 9.0 mg/dL (8.4-10.2) 07/27/23 Assessment & Plan Assessment & Plan (1) CKD (chronic kidney disease) stage 3, GFR 30-59 ml/min: Code(s): N18.30 - Chronic kidney disease, stage 3 unspecified Category: Medical Qualifiers: Chronic kidney disease stage 3 subtype: stage 3a (GFR 45-59) Qualified Code(s): N18.31 - Chronic kidney disease, stage 3a (2) HTN (hypertension): Code(s): I10 - Essential (primary) hypertension Category: Medical Qualifiers: Hypertension type: primary hypertension Qualified Code(s): I10 - Essential (primary) hypertension Plan Sarah has mild CKD. She is hypertensive. Doppler of her renal arteries ruled out any significant renal artery stenosis. She does not take any nonsteroidal anti-inflammatories. She is trying to minimize sodium in the diet. Cardiology colleagues are closely monitoring her. Her blood pressure needs to be maintain a goal. I increased her losartan to 75 mg . I did not make any medication changes today. Her mother was on dialysis and she wants to make sure her renal functions are stable given her cardiac issues. I answered all questions. Follow-up appointment given Orders: Orders Creatinine Today I10 - Essential (primary) hypertension, N18.31 - Chronic kidney disease, stage 3a Blood Urea Nitrogen Today I10 - Essential (primary) hypertension, N18.31 - Chronic kidney disease, stage 3a Electrolytes Today I10 - Essential (primary) hypertension, N18.31 - Chronic kidney disease, stage 3a Parathyroid Hormone Intact Today I10 - Essential (primary) hypertension, N18.31 - Chronic kidney disease, stage 3a Creatinine 3 Months I10 - Essential (primary) hypertension, N18.31 - Chronic kidney disease, stage 3a Blood Urea Nitrogen 3 Months I10 - Essential (primary) hypertension, N18.31 - Chronic kidney disease, stage 3a Electrolytes 3 Months I10 - Essential (primary) hypertension, N18.31 - Chronic kidney disease, stage 3a Calcium Today I10 - Essential (primary) hypertension, N18.31 - Chronic kidney disease, stage 3a Complete Blood Count Auto Diff Today I10 - Essential (primary) hypertension, N18.31 - Chronic kidney disease, stage 3a Vitamin D 25-OH Total Today I10 - Essential (primary) hypertension, N18.31 - Chronic kidney disease, stage 3a Medications: Changed From losartan 75 mg PO QAM To losartan 75 mg (1.5 x 50 mg) PO QAM 90 days 135 tabs 3RF Coding Level of Care Code Est Pt Level 4 (94520) Diagnoses Stage 3a chronic kidney disease N18.31 Chronic kidney disease stage 3 subtype: stage 3a (GFR 45-59) Primary hypertension I10 Hypertension type: primary hypertension
[2024-02-03 13:49] VITALS: BP 140/90; BMI 30.4
== END 2024-02-03 14:04 | disposition home or self-care (01) ==
PROVIDERS: PCP Registered Nurse; Visit Provider Internal Medicine Nephrology
DX: I12.9 Hypertensive chronic kidney disease with stage 1 through stage 4 chronic kidney disease, or unspecified chronic kidney disease (principal); N18.31 Chronic kidney disease, stage 3a
CPT/HCPCS: 99214

== ENCOUNTER → 2024-02-03 13:15 | Outpatient (BNVA) | payer MEDICAID, SELFPAY | PROVIDERS: PCP Registered Nurse; Visit Provider Internal Medicine Nephrology | DX: I12.9 Hypertensive chronic kidney disease with stage 1 through stage 4 chronic kidney disease, or unspecified chronic kidney disease (principal); N18.31 Chronic kidney disease, stage 3a | CPT/HCPCS: 99212 ==

== ENCOUNTER 2024-06-22 12:38 | Outpatient (AMB) | payer MEDICAID, SELFPAY ==
--- NOTE | 2024-06-22 12:58 | MHC.OFFVIS ---
Vital Signs 06/22/24 12:59 Height 5 ft 9 in Weight 202 lb 13.204 oz BMI 29.9 BP 140/78 H Blood Pressure Location Lt brachial Position Sitting Pulse 80 Pulse Source Pulse Oximeter Intake Visit Reasons: 6m follow up Allergies No Known Allergies Allergy (Verified 02/03/24 13:51) Medication List - Last Reconciled 06/22/24 by Maco Duncan MD apixaban (Eliquis) 5 mg PO BID 90 days furosemide 20 mg PO DAILY PRN 90 days losartan 75 mg (1.5 x 50 mg) PO QAM 90 days metoprolol succinate ER 100 mg PO DAILY zolpidem 5 mg PO BEDTIME PRN HPI Comments Details: Sarah returns for follow-up regarding atrial fibrillation. In 2020, she was seen in the hospital for consultation regarding atrial fibrillation/rapid rate. Underwent TERRY/cardioversion. Then put on amiodarone. Had cardiomyopathy thought to be possibly tachycardia induced. After that, she was briefly seen but lost for follow-up for a couple of years. Then had admission for influenza in 2022 and in that context, had atrial fibrillation rapid rate. Due to compliance issues, she was just slept on rate control. Overall, she states she feels good. No cardiac complaints whatsoever. [facility] Medical History HTN (hypertension) New onset a-fib Surgical History History of cardioversion (~09/2020) H/O tooth extraction Family History Father No problems noted. Mother No problems noted. Social History Household Members: Family Housing: Apartment Do you presently have visiting nurse or other home services: No Alcohol intake: current Alcohol intake frequency: former alcohol drinker Patient Tobacco Use Status: Former Tobacco user Second Hand Smoke Exposure: No Substance Use Type: Marijuana Advance Directives Date on File: 09/16/20 service: No Current occupational status: employed Review of Systems Const Denies weakness ENT Denies dizziness Card Denies chest pain, Denies chest pain with activity, Denies syncope, Denies rapid heart rate, Denies pedal edema, Denies edema, Denies leg edema, Denies lightheadedness, Denies palpitations, Denies dyspnea, Denies dyspnea on exertion and Denies orthopnea Resp Denies cough, Denies dyspnea and Denies dyspnea on exertion GI Denies hematochezia and Denies change in stool character Musc Denies abnormal gait, Denies muscle cramps, Denies muscle weakness, Denies numbness, Denies radiating pain into limb and Denies tingling Neuro Denies abnormal gait, Denies dizziness, Denies syncope, Denies numbness, Denies tingling and Denies weakness Endo Denies palpitations Physical Exam Vital Signs: Last Vital Signs Pulse 80 06/22/24 12:59 BP 140/78 H 06/22/24 12:59 BMI result Body Mass Index 29.9 Const General: comfortable and no acute distress Orientation/consciousness: patient oriented x3 HEENT Other: Unremarkable Head: Yes normal to inspection Neck Neck: Yes normal visual inspection Chest Chest palpation & inspection: normal inspection of the chest Resp Auscultation: clear to auscultation bilaterally Cardio Palpation: normal PMI Heart sounds: S1 normal heart sound present, S2 normal heart sound present, no gallops, Murmur heart sound present systolic II/ and no rubs GI Palpation (GI): Soft to palpation Back/Spine/Pelvis Other: unremarkable Skin General skin exam: no rashes or lesions noted Neuro General: patient oriented x3 Extrem General: Yes normal to inspection Psych Mental Status: mental status grossly normal Assessment & Plan Assessment & Plan (1) Persistent atrial fibrillation: Code(s): I48.19 - Other persistent atrial fibrillation Category: Medical Plan: Due to compliance issues, managed by rate control. Currently on beta-blockers/Eliquis. No changes. Check labs. Advised patient to do. 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 LVEF 30-35% few years ago in the context of atrial fibrillation rapid rate. Then essentially normalized. Repeat echocardiogram from last year shows LVEF 55-60%. (3) HTN (hypertension): Code(s): I10 - Essential (primary) hypertension Category: Medical Qualifiers: Hypertension type: primary hypertension Qualified Code(s): I10 - Essential (primary) hypertension Plan: Controlled. Orders: Orders Basic Metabolic Panel Today I48.91 - Unspecified atrial fibrillation Complete Blood Count no Diff Today I48.91 - Unspecified atrial fibrillation Coding Level of Care Code Est Pt Level 4 (19038) Complex EM visit Add On G2211 Diagnoses Persistent atrial fibrillation I48.19 Cardiomyopathy I42.9 Primary hypertension I10 Hypertension type: primary hypertension
[2024-06-22 12:59] VITALS: BP 140/78; PULSE 80; BMI 29.9
--- OUTSIDE RECORDS SUMMARY | 2024-06-22 14:58 | XMS_ITS | Clinical Summary ---
Author Organization [facility] Address [address] [place] [address] [facility] [place] [address] Phone Care Team Providers Care Headwaitress Name Role Phone Moustapha Wiggins Primary Care Provider Unavaila ble Allergies No known active allergies Medications furosemide (LASIX) 40 MG tablet Take 40 mg by mouth 1 (one) time each day Active amiodarone (PACERONE) 200 MG tablet Take 200 mg by mouth 1 (one) time each day Active metoprolol succinate XL (TOPROL XL) 50 MG 24 hr tablet Take 50 mg by mouth 1 (one) time each day Do not crush or chew. Active losartan (COZAAR) 25 MG tablet Take 25 mg by mouth 1 (one) time each day Active apixaban (Eliquis) 5 MG tablet Take 5 mg by mouth 1 (one) time each day Active zolpidem (Ambien) 5 MG tablet Take 5 mg by mouth at night if needed for sleep Active cetirizine (ZyrTEC) 10 MG tablet Take 10 mg by mouth 1 (one) time each day Active fluticasone (FLONASE) 50 MCG/ACT nasal spray Administer 1 spray into each nostril 1 (one) time each day Active amLODIPine (NORVASC) 2.5 MG tablet Take 2.5 mg by mouth 1 (one) time each day Active cholecalciferol (VITAMIN D-3) 125 MCG (5000 UT) capsule Take 5,000 Units by mouth 1 (one) time each day Active Active Problems Problem Noted Date Diagnosed Date Hypertension 02/22/2021 Stage 3a chronic kidney disease 02/22/2021 Chronic kidney disease 02/21/2021 Family History Medical History Relation Comments Hypertension Father Diabetes Mother Hypertension Mother Diabetes Sister Relation Status Comments Father Mother Sister Social History Tobacco Use Types Packs/Day Years Used Date Smoking Tobacco: Never Smokeless Tobacco: Never Alcohol Use Standard Drinks/Week Comments Yes 0 (1 standard drink = 0.6 oz pur e alcohol) occasionally Comments Unknown Sex and Gender Information Value Date Recorded Sex Assigned at Not on file Legal Sex Female 10:56 AM EDT Gender Identity Not on file Sexual Orientation Not on file Last Filed Vital Signs Vital Sign Reading Time Taken Comments Blood Pressure 140/90 02/22/2021 2:30 PM EDT Pulse 64 02/22/2021 2:30 PM EDT Temperature - - Respiratory Rate - - Oxygen Saturation 99% 02/22/2021 2:30 PM EDT Inhaled Oxygen Concentration - - Weight 92.5 kg (204 lb) 02/22/2021 2:30 PM EDT Height - - Body Mass Index - - Plan of Treatment Health Maintenance Due Date Last Done Comments Breast Cancer Screening 1965 Pneumococcal Vaccine: Pediat rics (0 to 5 Years) and At-Risk Patients (6 to 64 Years) (1 of 2 - PCV) 10/20/1969 Colorectal Cancer Screening: Annual FOBT 10/20/2012 Colorectal Cancer Screening: Colonoscopy 10/20/2012 Colorectal Cancer Screening: Sigmoidoscopy 10/20/2012 Influenza Vaccine (#1) 2023 Hepatitis B Vaccine Aged Out No longe r eligible based on patient's age to complete this topic Insurance [place] Care Teams Headwaitress Relationship Specialty Start Date End Date Moustapha Wiggins PCP - General Internal Medicine 12/14/20
--- OUTSIDE RECORDS SUMMARY | 2024-06-22 14:58 | XMS_ITS | Encounter Summary ---
Author Organization [employer] Address [address] [place] [address] Care Team Providers Care Care Professional Name Role Phone Eboni Terrazas NP Primary Care Provider [phone] Reason for Visit * Reason Comments Med Refill Encounter Details Date Type Department Care Team ([facility] st Contact Info) Description 06/04/2024 Refill [facility] [address], [place] [phone] Eboni Terrazas NP [address] [place] [address] Primary insomnia Social History Tobacco Use Types Packs/Day Years Used Date Smoking Tobacco: Never Smokeless Tobacco: Never Alcohol Use Standard Drinks/Week Comments Never 0 (1 standard drink = 0.6 oz pur e alcohol) Depression Answer Date Recorded Patient Health Questionnaire-9 Score 0 05/07/2023 Patient Health Questionnaire-9 Score 0 05/07/2023 Last PHQ-9: Questionnaire Data Not on file 0 05/07/2023 Housing Stability Answer Date Recorded What is your housing situation today? I have glenn melgoza 07/13/[address] you li ve. Do you have problems with any of the following? None of the above 07/13/2023 Food Insecurity Answer Date Recorded Within the past 12 months, y ou worried that your food would run out before you got money to buy more: Never True 07/13/2023 Within the past 12 months,th e food you bought just didn't last and you didn't have enough money to get more: Never True Transportation Answer Date Recorded In the past 12 months, has l ack of transportation kept you from medical appts, meetings, work or from getting things needed for daily living? No 07/13/2023 Utilities Answer Date Recorded In the past 12 months, has t he electric, gas, oil or water company threatened to shut off services in your home? No 07/13/2023 Depression Answer Date Recorded Patient Health Questionnaire-2 Score 0 05/07/2023 Comments Unknown Sex and Gender Information Value Date Recorded Sex Assigned at Female 02/17/2022 10:38 AM EDT Legal Sex Female 10:38 AM EDT Gender Identity Female 02/17/2022 10:38 AM EDT Sexual Orientation Straight 02/17/2022 10 :38 AM EDT documented as of this encounter Plan of Treatment Not on file documented as of this encounter Visit Diagnoses Diagnosis Primary insomnia Persistent disorder of initiating or maintaining sleep documented in this encounter Additional Health Concerns Assessment Noted Time PHQ-9 Depression Total Score: 0 05/07/19 10:53 AM EST documented as of this encounter Care Teams Care Professional Relationship Specialty Start Date End Date Eboni Terrazas NP [address] [place] [id number] PCP - General Family Medicine 05/15/23 documented as of this encounter
--- OUTSIDE RECORDS SUMMARY | 2024-06-22 14:58 | XMS_ITS | Encounter Summary ---
Author Organization [employer] Address [address] [place] [address] Care Team Providers Care Counter Server Name Role Phone Ailyn Finney Primary Care Provider [phone] Eboni Terrazas NP Primary Care Provider [phone] Encounter Details Date Type Department Care Team (Late st Contact Info) Description 10/08/2022 Orders Only [facility] [address] [place], [place] [phone] Anusha Davis LPN Social History Tobacco Use Types Packs/Day Years Used Date Smoking Tobacco: Never Assessed Comments Unknown Sex and Gender Information Value Date Recorded Sex Assigned at Female 02/17/2022 10:38 AM EDT Legal Sex Female 10:38 AM EDT Gender Identity Female 02/17/2022 10:38 AM EDT Sexual Orientation Straight 02/17/2022 10 :38 AM EDT documented as of this encounter Plan of Treatment Not on file documented as of this encounter Visit Diagnoses Not on filedocumented in this encounter Care Teams Counter Server Relationship Specialty Start Date End Date Ailyn Finney FNP [address] [place] [address] PCP - General Family Medicine 03/11/22 05/14/23 Eboni Terrazas NP [address] [place] [address] PCP - General Family Medicine 05/15/23 documented as of this encounter
--- OUTSIDE RECORDS SUMMARY | 2024-06-22 14:58 | XMS_ITS | Clinical Summary ---
Author Organization [employer] Address [address] [place] [address] 7[address] [place] [address] Care Team Providers Care Liner Machine Operator Helper Name Role Phone Eboni Terrazas REHAN Primary Care Provider [phone] Allergies No known active allergies Medications Eliquis 5 MG tabletIndication s:Chronic atrial fibrillation (CMS/HCC) Take 1 tablet (5 mg) by mouth 2 times daily. 180 tablet 3 05/07/19 24 Active metoprolol succinate XL (Toprol XL) 100 MG 24 hr tabletIndication s:Chronic atrial fibrillation (CMS/HCC) Take 1 tablet (100 mg) by mouth Once daily. Do not crush or chew. 90 tablet 1 07/20/19 24 025 Active losartan (Cozaar) 50 MG tabletIndication s:Essential hypertension Take 1.5 tablets daily 135 tablet 1 07/20/19 24 Active furosemide (Lasix) 20 MG tabletIndication s:Heart failure with reduced ejection fraction (CMS/HCC) TAKE 1 TABLET BY MOUTH IF NEEDED EACH DAY. 90 tablet 1 01/04/20 24 Active zolpidem (Ambien) 5 MG tabletIndication s:Primary insomnia TAKE ONE TABLET BY MOUTH DAILY AT BEDTIME NEEDED FOR SLEEP FOR UP TO 14 DAYS. 14 tablet 06/07/19 25 Active zolpidem (Ambien) 5 MG tabletIndication s:Primary insomnia TAKE ONE TABLET BY MOUTH DAILY AT BEDTIME NEEDED FOR SLEEP FOR UP TO 14 DAYS 14 tablet 03/21/20 24 025 Discontinued Active Problems Problem Noted Date Diagnosed Date Bacterial vaginosis 12/15/2023 Cervical cancer screening 12/14/2023 Other insomnia 12/14/2023 Microscopic hematuria 09/01/2023 Assessment & Plan (09/01/2023 8:05 PM EDT): Repeat UA ordered, non smoker, Encounter for screening for malignant neoplasm o f colon 09/01/2023 Assessment & Plan (09/01/2023 8:05 PM EDT): Cologuard ordered CKD (chronic kidney disease) 07/25/2023 Overview (07/25/2023): Creatitine 1.1 , nephrology 08/2023 Assessment & Plan (07/25/2023 5:21 PM EDT): Labs ordered, Upcoming visit with nephrology 09/10 Primary insomnia 07/20/2023 Assessment & Plan (12/17/2023 2:51 PM EDT): Renew ambien, continue sparing usage Assessment & Plan (07/25/2023 5:24 PM EDT): Pmpp reviewed, sparing usage of prn ambien reviewed Sleep hygiene reivewed Encounter for screening mamm ogram for malignant neoplasm of breast 07/20/2023 Dysuria 07/20/2023 Assessment & Plan (07/25/2023 5:24 PM EDT): Culture pending, will treat if positive Atrial fibrillation 05/06/2023 05/06/2023 Overview (07/25/2023): Dx 2020, olegario cardioversion, started on amiodarone and metoprolol Holter 07/01/2023 a fib hr 83 Assessment & Plan (09/01/2023 8:04 PM EDT): Irregular, tolerating and taking eliquis Rate controlled with metoprolol 100 mg Assessment & Plan (07/25/2023 5:19 PM EDT): Pt rate controlled today, in care with cardiology Asymptomatic Continue eliquis, losartan and metorprolol Assessment & Plan (05/07/2023 11:57 AM EST): HR controlled and she's anticoagulated Cont metoprolol and rodo LOOMIS w/ cardiology next m, she has an appointment scheduled Counseled regarding importance of HTN control Heart failure with reduced ejection fraction 05/06/2023 Overview (07/25/2023): 2020, cardiomyopathy (in setting of a fib) with ef down to 30-35% OLEGARIO cardioversion and was placed on amiodarone and metoprolol. echocardiogram was done 07/01/2023 showing EF 55-60%, [id number]-sm-[id number] mitral regurgitation left atrium severely dilated, right atrium moderately dilated Assessment & Plan (12/14/2023 12:27 PM EDT): Increase furosemid to 40 mg x 2 days, daily weights, Nursing to outreach in 48 hours to determine if wts have stabalized Assessment & Plan (09/01/2023 8:03 PM EDT): Complaint with medication, Extensive review of s/s to monitor/ report including increased weight, increased dyspnea, increased edema, Reviewed frequency of blood work Today pt is stable and symptoms are at abseline Assessment & Plan (07/25/2023 5:21 PM EDT): Encouraged daily weights Essential hypertension 05/06/2023 Assessment & Plan (12/14/2023 7:09 PM EDT): Above goal today , reviewed sodium reduction, daily weights, and s/s of failure. Pt will increase diuretic, weigh self and check bp daily. Assessment & Plan (09/01/2023 8:04 PM EDT): Home bps at goal of <130/<80. Continue cozaar 50 mg Assessment & Plan (07/25/2023 5:21 PM EDT): Above goal today, Measure at home , increase losartan to 75 mg Follow up in 3 weeks sooner prn Labs ordered Assessment & Plan (05/07/2023 11:50 AM EST): Uncontrolled, pt has been out of BP meds for more than a yr Restart losartan 50 mg and check BP w/ RN in 3 wks, needs TP w/ PCP Ischemic myocardial dysfunction 05/06/2023 05/06/2023 Stage 3a chronic kidney disease 02/22/2021 05/07/2023 Assessment & Plan (09/01/2023 8:04 PM EDT): Continue monitoring Assessment & Plan (07/20/2023 12:05 PM EDT): Upcoming visit in 09/10. Hypertension 02/22/2021 Chronic kidney disease 02/21/2021 Encounters Date Type Department Care Team Description 06/04/2024 Refill [facility] [address] [place] [phone] Eboni Terrazas NP Primary insomnia from Last 3 Months Immunizations Name Administration Dates Next Due Pneumococcal Polysaccharide PPSV23 07/16/2021 Tdap 07/16/2021 Social History Tobacco Use Types Packs/Day Years Used Date Smoking Tobacco: Never Smokeless Tobacco: Never Tobacco Cessation:Counseling Given: Not Answered Alcohol Use Standard Drinks/Week Comments Never 0 [...] Orientation Straight 02/17/2022 10 :38 AM EDT Last Filed Vital Signs Vital Sign Reading Time Taken Comments Blood Pressure 155/116 12/14/2023 12:26 PM EDT Pulse 84 12/14/2023 11:21 AM EDT Temperature 36.4 ??C (97.5 ??F) 07/20/2023 11:02 AM E DT Respiratory Rate 16 12/14/2023 11:21 AM EDT Oxygen Saturation 98% 12/14/2023 11:21 AM EDT Inhaled Oxygen Concentration - - Weight 94.2 kg (207 lb 9.6 oz) 12/14/2023 11:21 AM EDT Height 177.8 cm (5' 10 ) 12/14/2023 11:21 AM EDT Body Mass Index 29.79 12/14/2023 11:21 AM EDT Plan of Treatment Health Maintenance Due Date Last Done Comments CT Colonography 1965 Colonoscopy 1965 Colorectal Cancer Screening 1965 FIT DNA/Cologuard 1965 FIT 1965 FOBT 1965 Sigmoidoscopy 1965 Alcohol/Substance Use Screening 1975 Zoster Vaccines (1 of 2) 10/20/2013 Pneumococcal Vaccine: 50+ Years (2 of 2 - PCV) 07/16/2022 07/16/2021 RSV Patients and Patients Aged 60 years or older (1 - Risk 60-74 years 1-dose series) 2023 COVID-19 Vaccine (3 - 2023-2 5 season) 2023 01/01/2021, 12/11/2020 Influenza Vaccine (#1) 2023 Depression Screening 05/07/2024 05/07/2023, 05/07/2023 SDOH Screening 07/12/2024 07/13/2023 Diabetes: Hemoglobin A1C 07/26/2024 024, 07/18/2021, 12/11/2020 Tobacco Screening 12/13/2024 12/14/2023 Mammogram 08/06/2025 08/07/2023, 03/07/2021, 02/28/2021 Pap Smear 12/13/2026 12/14/2023 Lipid Panel 07/26/2028 07/27/2023, 12/20/2021, 12/11/2020 Cervical Cancer Screening 12/13/2028 HPV/Cotest 12/13/2028 12/14/2023 DTaP/Tdap/Td Vaccines (2 - T d or Tdap) 07/17/2031 07/16/2021 HIV Screening Completed 12/11/2020 Hepatitis C Screening Completed 12/11/2020 HIB Vaccines Aged Out No longer eligi ble based on patient's age to complete this topic HPV Vaccines Aged Out No longer eligi ble based on patient's age to complete this topic Hepatitis A Vaccines Aged Out No long er eligible based on patient's age to complete this topic Hepatitis B Vaccines Aged Out No long er eligible based on patient's age to complete this topic IPV Vaccines Aged Out No longer eligi ble based on patient's age to complete this topic Meningococcal Vaccine Aged Out No sharmaine ochoa eligible based on patient's age to complete this topic RSV under 20 months Aged Out No longe r eligible based on patient's age to complete this topic Rotavirus Vaccines Aged Out No longer eligible based on patient's age to complete this topic Procedures Procedure Name Priority Date/Time Associated Diagnosis Comments THINPREP IMAGING PAP AND HPV MRNA E6/E7 Routine 12/14/2023 12:00 AM EDT Bacterial vaginosis BI MAMMOGRAM SCREENING TOMOSYNTHESIS BILATERAL Routine 08/07/2023 3:15 PM EDT Encounter for screening mammogram for malignant neoplasm of breast HEMOGLOBIN A1C Routine 07/27/2023 11:28 AM EDT Essential hypertension LIPID PANEL, STANDARD Routine 07/27/2023 11:28 AM EDT Essential hypertension ZZZ HISTORICAL HEPATITIS C AB W/REFL TO HCV RNA, QN, PCR Routine 12/11/2020 9:20 AM EDT HIV 1/2 ANTIGEN/ANTIBODY, FOURTH GENERATION W/RFL Routine 12/11/2020 9:20 AM EDT from Last 3 Months or Most Recently Relevant to Health Maintenance Results * ThinPrep Imaging Pap and HPV mRNA E6/E7 (12/14/2023 12:00 AM EDT) HPV nRNA E6/E7 Not Detected Not Detected [facility] Comment:Methodology: Transcr iption-Mediated AmplificationThis assay detects E6/E7 viral messenger RNA (mRNA) from 14high-risk HPV types (16,18,31,33,35,39,45,51,52,56,58,59,66,68).Cervical sources are required for HPV testing.If a vaginal source from a patient who has had atotal hysterectomy with removal of cervix wassubmitted, please contact the testing laboratoryfor alternative testing options.For additional information, please refer tohttp://education.[employer]/faq/BGR901i9(This link if provided for information/educational purposes only.)THIS TEST WAS PERFORMED AT:[employer] [place] [phone] TOLEDO MD SOURCE: SEE NOTE [facility] Comment:None given Report Status: [facility] Clinical Information: SEE NOTE [facility] Comment:None given LMP: SEE NOTE [facility] Comment:NONE GIVEN Prev. PAP: SEE NOTE [facility] Comment:NONE GIVEN Prev. BX: SEE NOTE [facility] Comment:NONE GIVEN Statement Of Adequacy: SEE NOTE [facility] Comment:Satisfactory for robbin luation.Endocervical/transformation zone component absent. General Categorization: [facility] Interpretation/Result: SEE NOTE [facility] Comment:Cytology Results: Ne gative for intraepitheliallesion or malignancy. Cytology Comment SEE NOTE [facility] Comment:This Pap test has be en evaluated with computerassisted technology. Animal Care Specialist: SEE NOTE [facility] Comment:BK,CT(ASCP)CT screen ing location: [address] Review Animal Care Specialist: SEE NOTE [facility] Comment:CMG, CT(ASCP)CT scre ening location: [address] [phone] Pathologist TNP [facility] PAP Infection TNP [facility] See Note SEE NOTE [facility] Comment:EXPLANATORY NOTE:The Pap is a screening test for cervical cancer. It isnot a diagnostic test and is subject to false negativeand false positive results. It is most reliable when asatisfactory sample, regularly obtained, is submittedwith relevant clinical findings and history, and whenthe Pap result is evaluated along with historic andcurrent clinical information. 12/14/2023 12/14/2023 Narrative [facility] - 12/17/2023 1:55 PM EDT SEE SCANNED RESULTS IN EMR us Eboni Terrazas NP LAB PATHOLOGY ORDERABLES Final R esult [facility] [address] [place] [phone] * BI Mammogram Screening Tomosynthesis Bilateral (08/07/2023 3:15 PM EDT) Anatomical Region Laterality Modality Breast Bilateral Mammography 08/07/2023 3:15 PM EDT Narrative 09/07/2023 4:22 AM EDT ? [facility] ? [address] ?[place] [address] ? Mammography Report ? Signed ? Patient: Stamand,Sarah ?MR#: [id number] ?? [id number] ? : 1965 ?Acct:[id number] ? Age/Sex: 57 / F ?ADM Date: 04/19/24 ? Loc: HO.MAMMO ? Attending Dr: Eboni Terrazas AIR DEFENCE OFFICER ? Ordering Physician: Eboni Terrazas AIR DEFENCE OFFICER ?Results: 1Negati ?? ve ? Date of Service: 08/07/23 ?Follow Up: 1 Year From Orig ?? inal Mammogram ? Procedure(s): MM tomosynthesis screening BI ?? Accession Number(s): [id number] ? cc: Eboni Terrazas AIR DEFENCE OFFICER ? EXAMINATION: ?? MM SCREENING DIGITAL BREAST TOMOSYNTHESIS, BILATERAL ? CLINICAL INFORMATION: ? Screening. Asymptomatic. ? COMPARISON: ?? Mammography: This study is compared with prior exams dating back to ?? 2020. ? TECHNIQUE: ?? Digital breast tomosynthesis is performed in both the craniocaudal and ?? mediolateral oblique views along with computer-aided detection (CAD). ?? Synthesized 2D images are generated from the tomosynthesis. ? FINDINGS: ?? There are scattered areas of fibroglandular density (ACR BI-RADS breast ?? composition Category b). ? There are no significant masses, abnormal calcifications, or other ?? abnormalities. ? MM/MM tomosynthesis screening BI ?? IMPRESSION: ?? No mammographic evidence of malignancy. ? ASSESSMENT: ? BI-RADS BI-RADS 1 - Negative ? RECOMMENDATION: ?? Routine annual mammography screening. ? 1 year F/U ? This examination should not preclude the clinical evaluation of a ?? suspicious palpable abnormality. ? This patient's information was entered into a reminder system with a ?? target due date for their next mammogram. ? Dictated By: ?Rossy Powers MD ? Signed By: ?<Electronically signed by Rossy Powers MD in OV> ? 09/07/23417 ? DD/ 1515 ? TD/TT: ? Field Laborer: ? Procedure Note Donotuseinterpreter, Image - 09/07/2023 [facility] [address] [place] [phone] Mammography Report Signed Patient: Sarah DesouzaMR#: [id number] : 1965Acct:[id number] Age/Sex: 57 / FADM Date: 08/07/23 Loc: HO.MAMMO Attending Dr: Eboni Terrazas AIR DEFENCE OFFICER Ordering Physician: Eboni Terrazas NPResults: 1Negati ve Date of Service: 08/07/23Follow Up: 1 Year From Orig inal Mammogram Procedure(s): MM tomosynthesis screening BI Accession Number(s): [id number] cc: Eboni Terrazas AIR DEFENCE OFFICER EXAMINATION: MM SCREENING DIGITAL BREAST TOMOSYNTHESIS, BILATERAL CLINICAL INFORMATION: Screening. Asymptomatic. COMPARISON: Mammography: This study is compared with prior exams dating back to 2020. TECHNIQUE: Digital breast tomosynthesis is performed in both the craniocaudal and mediolateral oblique views along with computer-aided detection (CAD). Synthesized 2D images are generated from the tomosynthesis. FINDINGS: There are scattered areas of fibroglandular density (ACR BI-RADS breast composition Category b). There are no significant masses, abnormal calcifications, or other abnormalities. MM/MM tomosynthesis screening BI IMPRESSION: No mammographic evidence of malignancy. ASSESSMENT: BI-RADS BI-RADS 1 - Negative RECOMMENDATION: Routine annual mammography screening. 1 year F/U This examination should not preclude the clinical evaluation of a suspicious palpable abnormality. This patient's information was entered into a reminder system with a target due date for their next mammogram. Dictated By: Rossy Powers MD Signed By: <Electronically signed by Rossy Powers MD in OV> 09/07/23 0418 DD/ 1515 TD/TT: Field Laborer: us Eboni Terrazas NP IMG BI PROCEDURES Edited Result - Final * Hemoglobin A1c (07/27/2023 11:28 AM EDT) Hemoglobin A1c 5.7 <6.0 % [facility] Comment:Hemoglobin A1C Refer ence Range Adults: 4.8 - 6.0 % Non diabetic: < 6.0 % Goal: < 7.0 %Additional Action Suggested: > 8.0 %Note: Hemoglobin A1c results are invalid for patients with abnormal amounts of HbF. Blood transfusions may impact the HbA1c concentration in the patient sample. Estimated Average Glucose 117 mg/dL [facility] Comment:eAG = Estimated ave rage glucose which is %A1C expressed asaverage glucose, using the formula of the A4Q-ArptvjkYjfrukg Glucose study (ADAG), Diabetes Care, Vol.31,#8,Nov. 2007 Blood Venous blood specimen / Unknown 07/27/2023 11:28 AM EDT 07/27/2023 2:01 PM EDT us Eboni Terrazas NP LAB BLOOD ORDERABLES Final Resul t [facility] [address] [place] [phone] * Lipid Panel, Standard (07/27/2023 11:28 AM EDT) Triglycerides 72 <150 mg/dL [facility] Comment:Desirable Triglyceri de: less than 150 mg/dLBorderline High Triglyceride 150-199 mg/dLHigh Triglyceride: 200-499 mg/dLVery High Triglyceride: greater than or equal to 5OO mg/dL Cholesterol 127 <200 mg/dL [facility] Comment:Desirable Cholestero l: less than 200 mg/dLBorderline High Cholesterol: 200-239 mg/dLHigh Cholesterol: greater than 239 mg/dL LDL Cholesterol Calculated 62 <100 mg/dL [facility] Comment:Desirable LDL: less than 100 mg/dLNear Optimal/Above Optimal LDL: 110- 129 mg/dLBorderline High LDL: 130-159 mg/dLHigh LDL: 160-189 mg/dLVery High LDL: greater than or equal to 190 mg/dL HDL Cholesterol 51 >40 mg/dL [facility] Comment:Desirable HDL: great er than 40 mg/dL Note: This HDL assay may give artificially low results in patients with liver disease. Blood Venous blood specimen / Unknown 07/27/2023 11:28 AM EDT 07/27/2023 2:01 PM EDT us Eboni Terrazas AIR DEFENCE OFFICER LAB BLOOD ORDERABLES Final Resul t Performing Organization Address [facility] Co de Phone Number [facility] [address] [place] [phone] * HEPATITIS C AB W/REFL TO HCV RNA, QN, PCR (12/11/2020 9:20 AM EDT) HEPATITIS C ANTIBODY NON-REACT EVERETTE NON-REACT EVERETTE [facility] INDEX 0.02 <1.00 [facility] Comment: ?? HCV antibody was non-reactive. There is no laboratory ?? evidence of HCV infection. ?? In most cases, no further action is required. However, if recent HCV exposure is suspected, a test for HCV RNA (test code 30720) is suggested. ?? For additional information please refer to http://education.Xueba100.com.Oink/faq/JCL64w3 (This link is being provided for informational/ educational purposes only.) ?? 12/11/2020 9:20 AM EDT us Moustapha Wiggins MD HISTORICAL/NON ORDERABLE LAB S Final Result Performing Organization Address City/[facility] Co de Phone Number [facility] [address] * HIV 1/2 ANTIGEN/ANTIBODY,FOURTH GENERATION W/RFL (12/11/2020 9:20 AM EDT) HIV-1/2 ANTIGEN AND ANTIBODIES, 4TH GENERATION W/ REFLEX NON-REACT EVERETTE NON-REACT EVERETTE [facility] Comment: HIV-1 antigen and HIV-1/HIV-2 antibodies were not detected. There is no laboratory evidence of HIV infection. ?? PLEASE NOTE: This information has been disclosed to you from records whose confidentiality may be protected by state law. ??If your state requires such protection, then the state law prohibits you from making any further disclosure of the information without the specific written consent of the person to whom it pertains, or as otherwise permitted by law. A general authorization for the release of medical or other information is NOT sufficient for this purpose. ? For additional information please refer to http://education.Madeleine Market/faq/ZUE170 (This link is being provided for informational/ educational purposes only.) ? The performance of this assay has not been clinically validated in patients less than 2 years old. ?? 12/11/2020 9:20 AM EDT us Moustapha Wiggins MD LAB BLOOD ORDERABLES Final R esult [facility] [address] from Last 3 Months or Most Recently Relevant to Health Maintenance Insurance [facility] FULL * Guarantor: Sarah Desouza Account Type Relation to Patient Date of Phone Billing Address Personal/Family Self [address] Care Teams Liner Machine Operator Helper Relationship Specialty Start Date End Date Eboni Terrazas NP [address] [place] [phone] PCP - General Family Medicine 05/15/23
--- OUTSIDE RECORDS SUMMARY | 2024-06-22 14:58 | XMS_ITS | Encounter Summary ---
Author Organization [employer] Address [address] [facility] 7[address] [place] [address] Care Team Providers Care Box Blank Machine Operator Name Role Phone Eboni Terrazas NP Primary Care Provider [phone] Reason for Visit * Reason Onset Date Comments Reschedule 07/03/2023 Encounter Details Date Type Department Care Team ([facility] st Contact Info) Description 07/03/2023 Telephone [facility] [address] [place] [address] Eboni Terrazas NP [address] [place] [address] Reschedule Social History Tobacco Use Types Packs/Day Years Used Date Smoking Tobacco: Never Smokeless Tobacco: Never Alcohol Use Standard Drinks/Week Comments Never 0 (1 standard drink = 0.6 oz pur e alcohol) Depression Answer Date Recorded Patient Health Questionnaire-9 Score 0 05/07/2023 Patient Health Questionnaire-9 Score 0 05/07/2023 Last PHQ-9: Questionnaire Data Not on file 0 05/07/2023 Depression Answer Date Recorded Patient Health Questionnaire-2 Score 0 05/07/2023 Comments Unknown Sex and Gender Information Value Date Recorded Sex Assigned at Female 02/17/2022 10:38 AM EDT Legal Sex Female 10:38 AM EDT Gender Identity Female 02/17/2022 10:38 AM EDT Sexual Orientation Straight 02/17/2022 10 :38 AM EDT documented as of this encounter Miscellaneous Notes * Telephone Encounter - Soraida Roberts - 07/03/2023 12:35 PM EDT Tc from pt requesting r/s TP appt documented in this encounter Plan of Treatment Not on file documented as of this encounter Visit Diagnoses Not on filedocumented in this encounter Additional Health Concerns Assessment Noted Time PHQ-9 Depression Total Score: 0 05/07/19 10:53 AM EST documented as of this encounter Care Teams Box Blank Machine Operator Relationship Specialty Start Date End Date Eboni Terrazas NP [address] [place] [address] PCP - General Family Medicine 05/15/23 documented as of this encounter
== END 2024-06-22 13:18 | disposition home or self-care (01) ==
PROVIDERS: PCP Nurse Practitioner Family; Visit Provider Internal Medicine
DX: I48.19 Other persistent atrial fibrillation (principal); I42.9 Cardiomyopathy, unspecified; I10 Essential (primary) hypertension
CPT/HCPCS: 99214

== ENCOUNTER → 2024-06-22 12:38 | Outpatient (BNVA) | payer MEDICAID, SELFPAY | PROVIDERS: PCP Registered Nurse; Visit Provider Internal Medicine | DX: I48.19 Other persistent atrial fibrillation (principal); I42.9 Cardiomyopathy, unspecified; I10 Essential (primary) hypertension | CPT/HCPCS: 99212 ==

== ENCOUNTER 2024-09-02 11:05 | Outpatient (REF) | payer MEDICAID, SELFPAY ==
[2024-09-02 11:31] LABS: MANUAL DIFF FLAG NO
--- OUTSIDE RECORDS SUMMARY | 2024-09-02 11:34 | XMS_ITS | Encounter Summary ---
Author Organization [employer] Address [address] [facility] 7t [place] [address] Care Team Providers Care Last Ironer Name Role Phone Ailyn Finney Primary Care Provider [phone] Eboni Terrazas NP Primary Care Provider [phone] Encounter Details Date Type Department Care Team (Late st Contact Info) Description 10/08/2022 Orders Only [facility] [address] [place], [place] [phone] Anusha Davis LPN Social History Tobacco Use [...] on filedocumented in this encounter Care Teams Last Ironer Relationship Specialty Start Date End Date Ailyn Finney FNP [address] [place] [phone] PCP - General Family Medicine 03/11/22 05/14/23 Eboni Terrazas NP [address] [place] [address] PCP - General Family Medicine 05/15/23 documented as of this encounter
--- OUTSIDE RECORDS SUMMARY | 2024-09-02 11:34 | XMS_ITS | Encounter Summary ---
Author Organization [employer] Address [address] [facility] 7t [place] [address] Care Team Providers Care Electromechanical Technician Name Role Phone Eboni Terrazas NP Primary Care Provider [phone] Reason for Visit * Reason Onset Date Comments Call Back Request 06/28/2024 Appointment Request 06/28/2024 Encounter Details Date Type Department Care Team ([facility] Contact Info) Description 06/28/2024 Telephone [facility] [address] [place], [place] [phone] Eboni Terrazas NP [address] [place] [address] Call Back Request; Appointment Request Social History Tobacco Use Types Packs/Day Years [...] encounter Miscellaneous Notes * Telephone Encounter - Bridget Young - 06/28/2024 2:53 PM EDT Tc from pt requesting a callback, Pt inform needs appointment with provider. Candy Mixer offer triage called pt denied callback. Pt will like to discuss some information (no further info discussed). documented in this encounter Plan of Treatment Not on file documented as of this encounter Visit Diagnoses Not on filedocumented in this encounter Additional Health Concerns Assessment Noted Time PHQ-9 Depression Total Score: 0 05/07/19 10:53 AM EST documented as of this encounter Care Teams Electromechanical Technician Relationship Specialty Start Date End Date Eboni Terrazas NP [address] [place] [phone] PCP - General Family Medicine 05/15/23 documented as of this encounter
--- OUTSIDE RECORDS SUMMARY | 2024-09-02 11:34 | XMS_ITS | Encounter Summary ---
Author Organization [employer] Address [address] [facility] 7t [place] [address] Care Team Providers Care Check Inspector Name Role Phone Eboni Terrazas GLASS LINED TANK REPAIRER Primary Care Provider [phone] Reason for Visit * Reason Onset Date Comments Reschedule 07/03/2023 Encounter Details Date Type Department Care Team ([facility] st Contact Info) Description 07/03/2023 Telephone [facility] [address] [place] [address] Eboni Terrazas NP [address] [place] [address] Reschedule Social History Tobacco Use Types Packs/Day [...] documented as of this encounter Care Teams Check Inspector Relationship Specialty Start Date End Date Eboni Terrazas NP [address] [place] [phone] PCP - General Family Medicine 05/15/23 documented as of this encounter
--- OUTSIDE RECORDS SUMMARY | 2024-09-02 11:34 | XMS_ITS | Clinical Summary ---
Author Organization [facility] Address [address] [place] [address] Phone Care Team Providers Care Water Chemist Name Role Phone Moustapha Wiggins Primary Care [...] Comments Breast Cancer Screening 1965 Pneumococcal Vaccine: 50+ Ye ars (1 of 2 - PCV) 10/20/1982 Colorectal Cancer Screening: Annual FOBT 10/20/2012 Colorectal Cancer Screening: Colonoscopy 10/20/2012 Colorectal Cancer Screening: Sigmoidoscopy 10/20/2012 Influenza Vaccine (Season Ended) 2024 Hepatitis B Vaccine Aged Out No longe r eligible based on patient's age to complete this topic Insurance Medicaid [place] Medicaid [place] Care Teams Water Chemist Relationship Specialty Start Date End Date Moustapha Wiggins PCP - General Internal Medicine 12/14/20
--- OUTSIDE RECORDS SUMMARY | 2024-09-02 11:34 | XMS_ITS | Clinical Summary ---
Author Organization [employer] Address [address] [facility] 7t [place] [address] Care Team Providers Care Vocational Horticulture Instructor Name Role Phone Eboni Terrazas REHAN Primary Care Provider [phone] Allergies No known active allergies Medications metoprolol succinate XL (Toprol XL) 100 MG 24 hr tabletIndication s:Chronic atrial fibrillation (CMS/HCC) Take 1 tablet (100 mg) by mouth Once daily. Do not crush or chew. 90 tablet 1 07/20/19 24 Active losartan (Cozaar) 50 MG tabletIndication s:Essential hypertension Take 1.5 tablets daily 135 tablet 1 07/20/19 24 Active Eliquis 5 MG tabletIndication s:Chronic atrial fibrillation (CMS/HCC) Take 1 tablet (5 mg) by mouth 2 times daily. 180 tablet 3 06/30/19 25 026 Active furosemide (Lasix) 20 MG tabletIndication s:Heart failure with reduced ejection fraction (CMS/HCC) TAKE 1 TABLET BY MOUTH IF NEEDED EACH DAY. 90 tablet 1 06/30/19 25 Active zolpidem (Ambien) 5 MG tabletIndication s:Primary insomnia TAKE ONE TABLET BY MOUTH DAILY AT BEDTIME NEEDED FOR SLEEP 14 tablet 08/20/19 25 Active zolpidem (Ambien) 5 MG tabletIndication s:Primary insomnia TAKE ONE TABLET BY MOUTH DAILY AT BEDTIME NEEDED FOR SLEEP FOR UP TO 14 DAYS. 14 tablet 06/07/19 25 025 Discontinued Active Problems Problem Noted Date [...] a fib hr 83 Assessment & Plan (07/17/2024 4:04 PM EDT): Irregular rhythm today , rate controlled, urgency of taking medications and checking pulse reviewed, Cardiology note also reviewed with pt Assessment & Plan (09/01/2023 8:04 PM EDT): Irregular, tolerating and taking eliquis Rate controlled with metoprolol 100 mg Assessment & Plan (07/25/2023 5:19 PM EDT): Pt rate controlled today, in care with cardiology Asymptomatic Continue eliquis, losartan and metorprolol Assessment & Plan (05/07/2023 11:57 AM EST): HR controlled and she's anticoagulated Cont metoprolol and eliquis FU w/ cardiology next m, she has an appointment scheduled Counseled regarding importance of HTN control Heart failure with reduced ejection fraction 05/06/2023 Overview (07/25/2023): 2020, cardiomyopathy (in setting of a fib) with ef down to 30-35% OLEGARIO cardioversion and was placed on amiodarone and metoprolol. echocardiogram was done 07/01/2023 showing EF 55-60%, [id number] mitral regurgitation left atrium severely dilated, right [...] EDT): Upcoming visit in 09/10. 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 and resume therapy today, will measure bp at home Pt refuses ekg Chronic kidney disease 02/21/2021 Encounters Date Type Department Care Team Description 08/18/2024 Refill [facility] MED[facility]INE [address] [place] [address] Eboni Terrazas NP Primary insomnia 07/19/2024 Telephone [facility] [address] [place] [address] Sarah Justin MA Chart Prep 07/01/2024 Population Health Risk Score [facility] Department [address] [place] [phone] Provider, Population Health Generic 06/30/2024 Telephone [facility] [address] [place] [address] Eboni Terrazas NP 06/29/2024 9:30 AM EDT Office Visit [facility] [address] [place] [address] Eboni Terrazas NP Atrial fibrillation, unspecified type (CMS/HCC) (Primary Dx); Heart failure with reduced ejection fraction (CMS/HCC); Essential hypertension; Chronic atrial fibrillation (CMS/HCC); Hypertension, unspecified type 06/29/2024 Travel 06/28/2024 Telephone [facility] MED[facility]INE [address] [place] [phone] Eboni Terrazas NP Call Back Request; Appointment Request from Last 3 Months Immunizations Immunization Administration Dates Next Due Pneumococcal Polysaccharide PPSV23 [...] Sign Reading Time Taken Comments Blood Pressure 189/129 06/29/2024 9:39 AM EDT second time 169/119 Pulse 77 06/29/2024 9:39 AM EDT Temperature 36.4 ??C (97.5 ??F) 06/29/2024 9 :39 AM EDT Respiratory Rate 16 06/29/2024 9:39 AM EDT Oxygen Saturation 97% 06/29/2024 9:3 9 AM EDT Inhaled Oxygen Concentration - - Weight 94.6 kg (208 lb 9.6 oz) 06/29/2024 9:39 AM EDT Height 177.8 cm (5' 10 ) 06/29/2024 9:3 9 AM EDT Body Mass Index 29.93 06/29/2024 9:39 AM EDT Plan of Treatment Health Maintenance [...] 05/07/2024 05/07/2023, 05/07/2023 SDOH Screening 07/12/2024 07/13/2023 Tobacco Screening 06/29/2025 06/29/2024 Mammogram 08/06/2025 08/07/2023, 03/07/2021, 02/28/2021 Pap Smear [...] patient's age to complete this topic Meningococcal B Vaccine Aged Out No l onger eligible based on patient's age to complete [...] screening mammogram for malignant neoplasm of breast LIPID PANEL, STANDARD Routine 07/27/2023 11:28 AM [...] HPV nRNA E6/E7 Not Detected Not Detected [facility] Comment:Methodology: Transcr iption-Mediated AmplificationThis assay detects E6/E7 viral messenger RNA (mRNA) from 14high-risk HPV types (16,18,31,33,35,39,45,51,52,56,58,59,66,68).Cervical sources are required for HPV testing.If a vaginal source from a patient who has had atotal hysterectomy with removal of cervix wassubmitted, please contact the testing laboratoryfor alternative testing options.For additional information, please refer tohttp://education.HaveMyShift/faq/RCZ104p5(This link if provided for information/educational purposes only.)THIS TEST WAS PERFORMED AT:[employer] [address] [phone] TOLEDO MD SOURCE: SEE NOTE [facility] Comment:None given Report Status: [facility] Clinical Information: SEE NOTE [facility] Comment:None given LMP: SEE NOTE [facility] Comment:NONE GIVEN Prev. PAP: SEE NOTE [facility] Comment:NONE GIVEN Prev. BX: SEE NOTE [facility] Comment:NONE GIVEN Statement Of Adequacy: SEE NOTE [facility] Comment:Satisfactory for robbin luation.Endocervical/transformation zone component absent. General Categorization: [facility] Interpretation/Result: SEE NOTE [facility] Comment:Cytology Results: Ne gative for intraepitheliallesion or malignancy. Cytology Comment SEE NOTE [facility] Comment:This Pap test has be en evaluated with computerassisted technology. Account Manager Forest Service: SEE NOTE [facility] Comment:BK,CT(ASCP)CT screen ing location: [address] Review Account Manager Forest Service: SEE NOTE [facility] Comment:CMG, CT(ASCP)CT scre ening location: [address] [address] Pathologist [facility] PAP Infection [facility] See Note SEE [facility] Comment:EXPLANATORY NOTE:The Pap is a screening test for cervical cancer. It isnot a diagnostic test and is subject to false negativeand false positive results. It is most reliable when asatisfactory sample, regularly obtained, is submittedwith relevant clinical findings and history, and whenthe Pap result is evaluated along with historic andcurrent clinical information. 12/14/2023 12/14/2023 Narrative [facility] - 12/17/2023 1:55 PM EDT SEE SCANNED RESULTS IN EMR us Eboni Terrazas DIRECTOR OF SCIENTIFIC RESEARCH LAB PATHOLOGY ORDERABLES Final R esult [facility] [address] [place] [address] [phone] * BI Mammogram Screening Tomosynthesis Bilateral (08/07/2023 3:15 PM EDT) Anatomical Region Laterality Modality Breast Bilateral Mammography 08/07/2023 3:15 PM EDT Narrative 09/07/2023 4:22 AM EDT ? [facility] [place] ? [address] ?[place] [address] ? Mammography Report ? Signed ? Patient: Stamand,Sarah ?MR#: [id number] ?? 622 ? : 1965 ?Acct:[id number] ? Age/Sex: 57 / F ?ADM Date: 04//24 ? Loc: HO.MAMMO ? Attending Dr: Eboni B Graef DIRECTOR OF SCIENTIFIC RESEARCH ? Ordering Physician: Graef,Eboni B DIRECTOR OF SCIENTIFIC RESEARCH ?Results: 1Negati ?? ve ? Date of Service: //24 ?Follow Up: 1 Year From Orig ?? inal Mammogram ? Procedure(s): MM tomosynthesis screening BI ?? Accession Number(s): [id number] ? cc: Eboni Terrazas DIRECTOR OF SCIENTIFIC RESEARCH ? EXAMINATION: ?? MM SCREENING DIGITAL BREAST [...] by Rossy Powers MD in OV> ? 09/07/23 0418 ? DD/ 1515 ? TD/TT: ? Wet Char Conveyor Tender: ? Procedure Note Dana Dunham - 09/07/2023 [facility] [address] [place] [address] [place] [address] Mammography Report Signed Patient: Sarah Desouza#: [id number] 622 : 1965Acct:[id number] Age/Sex: 57 / FADM Date: 08/07/23 Loc: HO.MAMMO Attending Dr: Eboni Terrazas DIRECTOR OF SCIENTIFIC RESEARCH Ordering Physician: Eboni Terrazas NPResults: 1Negati ve Date of Service: 08/07/23Follow Up: 1 Year From Orig ina Mammogram Procedure(s): MM tomosynthesis screening BI Accession Number(s): [id number] cc: Eboni Terrazas DIRECTOR OF SCIENTIFIC RESEARCH EXAMINATION: MM SCREENING DIGITAL BREAST TOMOSYNTHESIS, BILATERAL [...] in OV> 09/07/23 0418 DD/ 1515 TD/TT: Wet Char Conveyor Tender: Eboni Terrazas NP IM BI PROCEDURES Edited Result - Final * Lipid Panel, Standard (07/27/2023 11:28 AM EDT) Triglycerides 72 <150 mg/dL [facility] Comment:Desirable Triglyceri de: less than 150 mg/dLBorderline High Triglyceride 150-199 mg/dLHigh Triglyceride: 200-499 mg/dLVery High Triglyceride: greater than or equal to 5OO mg/dL Cholesterol 127 <200 mg/dL [facility] Comment:Desirable Cholestero l: less than 200 mg/dLBorderline High Cholesterol: 200-239 mg/dLHigh Cholesterol: greater than 239 mg/dL LDL Cholesterol Calculated 62 <100 mg/dL [facility] Comment:Desirable LDL: less than 100 mg/dLNear Optimal/Above Optimal LDL: 110- 129 mg/dLBorderline High LDL: 130-159 mg/dLHigh LDL: 160-189 mg/dLVery High LDL: greater than or equal to 190 mg/dL HDL Cholesterol 51 >40 mg/dL [facility] Comment:Desirable HDL: great er than 40 mg/dL Note: This HDL assay may give artificially low results in patients with liver disease. Blood Venous blood specimen / Unknown 07/27/2023 11:28 AM EDT 07/27/2023 2:01 PM EDT us Eboni Terrazas NP LAB BLOOD ORDERABLES Final Resul t Performing Organization Address City/[facility]/ZIP Co de Phone Number [facility] [address] [place] [phone] * HEPATITIS C AB W/REFL TO HCV RNA, QN, PCR (12/11/2020 9:20 AM EDT) HEPATITIS C ANTIBODY NON-REACT [facility] NON-REACT [facility] INDEX 0.02 <1.00 [facility] Comment: ?? HCV antibody was non-reactive. There is no laboratory ?? evidence of HCV infection. ?? In most cases, no further action is required. However, if recent HCV exposure is suspected, a test for HCV RNA (test code 57657) is suggested. ?? For additional information please refer to http://education.[employer]z.[employer]/faq/KPY08i5 (This link is being provided for informational/ educational purposes only.) ?? 12/11/2020 9:20 AM EDT us Moustapha Wiggins MD HISTORICAL/NON ORDERABLE LAB S Final Result Performing Organization Address City/[facility]/ZIP Co de Phone Number [facility] Anywhere [address] * HIV 1/2 ANTIGEN/ANTIBODY,FOURTH GENERATION W/RFL [...] ? For additional information please refer to http://education.HaveMyShift/faq/XIO930 (This link is being provided for informational/ educational purposes only.) ? The performance of this assay has not been clinically validated in patients less than 2 years old. ?? 12/11/2020 9:20 AM EDT us Moustapha Wiggins MD LAB BLOOD ORDERABLES Final R esult [facility] [address] from Last 3 Months or Most Recently Relevant to Health Maintenance Insurance [facility] C3 HSN FULL Care Teams Vocational Horticulture Instructor Relationship Specialty Start Date End Date Eboni Terrazas NP [address] [place] [phone] PCP - General Family Medicine 05/15/23
[2024-09-02 12:02] LABS: Basophils Percent Auto 0.4 % (0-2); Eosinophils Absolute Auto 0.1 X10*3/uL (0.0-0.4); Eosinophils Percent Auto 1.4 % (0-4); Hematocrit 40.1 % (37.0-47.0); Hemoglobin 13.3 g/dl (12.0-16.0); Imm Gran Abs Auto 0.03 X10*3/uL (0.00-0.03); Imm Gran Pct Auto 0.4 % (0.0-0.4); Lymphocytes Percent Auto 28.4 % (20-40); Mean Corpuscular HGB Conc 33.2 g/dl (31.0-35.0); Mean Corpuscular Hemoglobin 30.5 pg (27.0-33.0); Mean Platelet Volume 11.4 fL (9.4-12.3); Monocytes Absolute Auto 0.7 X10*3/uL (0.1-1.2); Monocytes Percent Auto 10.2 % (2-11); Neutrophils Absolute Auto 4.1 x10*3/uL (2.0-8.3); Neutrophils Percent Auto 59.2 % (45-73); Platelet Count 188 X10*3/uL (160-400); Red Blood Count 4.36 X10*6/uL (4.20-5.50)
[2024-09-02 12:08] LABS: Estimated Average Glucose 117 mg/dL; Hemoglobin A1C 133.3319 umol/L; Hemoglobin A1c % 5.7 % (<6.0); Total Hemoglobin (HGBA1C) 3466.5168 umol/L
[2024-09-02 12:25] LABS: Parathyroid Hormone Intact 201.2 pg/mL (8.7-77.1)
[2024-09-02 12:42] LABS: Alanine Aminotransferase 44 U/L (0-31); Albumin Level 3.7 g/dL (3.5-5.0); Alkaline Phosphatase 190 U/L (39-117); Anion Gap 10 (12-20); Aspartate Amino Transferase 45 U/L (5-31); Bilirubin Total 1.5 mg/dL (0.0-1.0); Blood Urea Nitrogen 16 mg/dL (9-16); Calcium 8.9 mg/dL (8.4-10.2); Carbon Dioxide 28 mmol/L (22-29); Chloride 104 mmol/L (96-108); Cholesterol 135 mg/dL (<200); Estimated Glomerular Filt Rate 42; Glucose Random 95 mg/dL (60-115); HDL Cholesterol 59 mg/dL (>40); LDL Cholesterol Calculated 59 mg/dL (<100); Sodium 138 mmol/L (135-145); Total Protein 6.9 g/dL (6.5-8.0); Triglycerides 86 mg/dL (<150)
[2024-09-02 12:46] LABS: Vitamin D 25-OH Total 9.1 ng/mL (>30)
[2024-09-06 13:28] LABS: IgA 225 mg/dL (47-310); IgG 1329 mg/dL (600-1640); IgM 86 mg/dL (50-300)
== END 2024-09-02 11:06 | disposition home or self-care (01) ==
LOC: HO.LAB 11:05
PROVIDERS: PCP Nurse Practitioner Family; Visit Provider Internal Medicine Nephrology
DX: I12.9 Hypertensive chronic kidney disease with stage 1 through stage 4 chronic kidney disease, or unspecified chronic kidney disease (principal); N18.31 Chronic kidney disease, stage 3a; E55.9 Vitamin D deficiency, unspecified; N25.81 Secondary hyperparathyroidism of renal origin
CPT/HCPCS: 36415; 80053; 80061; 82306; 82784; 83036; 83970; 85025; 85027; 86334; 99212

== ENCOUNTER 2024-09-02 11:49 | Outpatient (AMB) | payer MEDICAID, SELFPAY ==
--- OUTSIDE RECORDS SUMMARY | 2024-09-02 11:57 | XMS_ITS | Clinical Summary ---
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 and resume therapy today, will measure bp at home Pt refuses ekg Chronic kidney disease 02/21/2021 Encounters Date Type Department Care Team Description 08/18/2024 Refill [facility] [address] [place] [address] Eboni Terrazas NP Primary insomnia 07/19/2024 Telephone [facility] [address] [place] [address] Sarah Justin MA Chart Prep 07/01/2024 Population Health Risk Score [facility] Department [address] [place] [phone] Provider, Population Health Generic 06/30/2024 Telephone [facility] [address] [place] [address] Eboni Terrazas NP 06/29/2024 9:30 AM EDT Office Visit [facility] [address] [place] [address] Eboni Terrazas NP Atrial fibrillation, unspecified type (CMS/HCC) (Primary Dx); Heart failure with reduced ejection fraction (CMS/HCC); Essential hypertension; Chronic atrial fibrillation (CMS/HCC); Hypertension, unspecified type 06/29/2024 Travel 06/28/2024 Telephone [facility] [address] [place] [phone] Eboni Terrazas NP Call Back Request; Appointment [...] HPV nRNA E6/E7 Not Detected Not Detected [facility] Comment:Methodology: Transcr iption-Mediated AmplificationThis assay detects E6/E7 viral messenger RNA (mRNA) from 14high-risk HPV types (16,18,31,33,35,39,45,51,52,56,58,59,66,68).Cervical sources are required for HPV testing.If a vaginal source from a patient who has had atotal hysterectomy with removal of cervix wassubmitted, please contact the testing laboratoryfor alternative testing options.For additional information, please refer tohttp://education.[employer]/faq/OGJ219q6(This link if provided for information/educational purposes only.)THIS TEST WAS PERFORMED AT:[facility] [address] [phone] TOLEDO MD SOURCE: SEE NOTE [facility] Comment:None given Report Status: [facility] Clinical Information: SEE NOTE [facility] Comment:None given LMP: SEE NOTE [facility] Comment:NONE GIVEN Prev. PAP: SEE NOTE [facility] Comment:NONE GIVEN Prev. BX: SEE NOTE [facility] Comment:NONE GIVEN Statement Of Adequacy: SEE NOTE [facility] Comment:Satisfactory for robbin luation.Endocervical/transformation zone component absent. General Categorization: [facility] Interpretation/Result: SEE NOTE [facility] Comment:Cytology Results: Ne gative for intraepitheliallesion or malignancy. Cytology Comment SEE NOTE [facility] Comment:This Pap test has be en evaluated with computerassisted technology. Churn Driller Helper: SEE NOTE [facility] Comment:BK,CT(ASCP)CT screen ing location: [address] Review Churn Driller Helper: SEE NOTE [facility] Comment:CMG, CT(ASCP)CT scre ening location: [address] [address] Pathologist [facility] PAP Infection [facility] See Note SEE [facility] Comment:EXPLANATORY NOTE:The Pap is a screening test for cervical cancer. It isnot a diagnostic test and is subject to false negativeand false positive results. It is most reliable when asatisfactory sample, regularly obtained, is submittedwith relevant clinical findings and history, and whenthe Pap result is evaluated along with historic andcurrent clinical information. 12/14/2023 12/14/2023 Narrative [facility] - 12/17/2023 1:55 PM EDT SEE SCANNED RESULTS IN EMR us Eboni Terrazas LINOTYPE OPERATOR LAB PATHOLOGY ORDERABLES Final R esult [facility] [address] [place] [phone] * BI Mammogram Screening Tomosynthesis Bilateral (08/07/2023 3:15 PM EDT) Anatomical Region Laterality Modality Breast Bilateral Mammography 08/07/2023 3:15 PM EDT Narrative 09/07/2023 4:22 AM EDT ? [facility] [place] ? [address] ?[place] [address] ? Mammography Report ? Signed ? Patient: Stamand,Sarah ?MR#: [id number] ?? 622 ? : 1965 ?Acct:[id number] ? Age/Sex: 57 / F ?ADM Date: 04//24 ? Loc: HO.MAMMO ? Attending Dr: Eboni B Graef LINOTYPE OPERATOR ? Ordering Physician: Graef,Eboni B LINOTYPE OPERATOR ?Results: 1Negati ?? ve ? Date of Service: //24 ?Follow Up: 1 Year From Orig ?? inal Mammogram ? Procedure(s): MM tomosynthesis screening BI ?? Accession Number(s): [id number] ? cc: Eboni Terrazas LINOTYPE OPERATOR ? EXAMINATION: ?? MM SCREENING DIGITAL BREAST [...] 0418 ? DD/ 1515 ? TD/TT: ? Pocket Setter: ? Procedure Note Dana Dunham - 09/07/2023 [facility] [address] [place] [address] [place] [address] Mammography Report Signed Patient: Sarah Desouza#: [id number] 622 : 1965Acct:[id number] Age/Sex: 57 / FADM Date: 08/07/23 Loc: HO.MAMMO Attending Dr: Eboni Terrazas LINOTYPE OPERATOR Ordering Physician: Eboni Terrazas NPResults: 1Negati ve Date of Service: 08/07/23Follow Up: 1 Year From Orig ina Mammogram Procedure(s): MM tomosynthesis screening BI Accession Number(s): [id number] cc: Eboni Terrazas LINOTYPE OPERATOR EXAMINATION: MM SCREENING DIGITAL BREAST TOMOSYNTHESIS, BILATERAL [...] in OV> 09/07/23 0418 DD/ 1515 TD/TT: Pocket Setter: Eboni Terrazas NP IM BI PROCEDURES Edited Result - Final * Lipid Panel, Standard (07/27/2023 11:28 AM EDT) Triglycerides 72 <150 mg/dL [facility] Comment:Desirable Triglyceri de: less than 150 mg/dLBorderline High Triglyceride 150-199 mg/dLHigh Triglyceride: 200-499 mg/dLVery High Triglyceride: greater than or equal to 5OO mg/dL Cholesterol 127 <200 mg/dL [facility] Comment:Desirable Cholestero l: less than 200 mg/dLBorderline High Cholesterol: 200-239 mg/dLHigh Cholesterol: greater than 239 mg/dL LDL Cholesterol Calculated 62 <100 mg/dL [facility] Comment:Desirable LDL: less than 100 mg/dLNear Optimal/Above Optimal LDL: 110- 129 mg/dLBorderline High LDL: 130-159 mg/dLHigh LDL: 160-189 mg/dLVery High LDL: greater than or equal to 190 mg/dL HDL Cholesterol 51 >40 mg/dL [facility] Comment:Desirable HDL: great er than 40 mg/dL Note: This HDL assay may give artificially low results in patients with liver disease. Blood Venous blood specimen / Unknown 07/27/2023 11:28 AM EDT 07/27/2023 2:01 PM EDT us Eboni Terrazas NP LAB BLOOD ORDERABLES Final Resul t Performing Organization Address City/[facility]/ZIP Co de Phone Number [facility] [address] [place] [phone] * HEPATITIS C AB W/REFL TO HCV RNA, QN, PCR (12/11/2020 9:20 AM EDT) HEPATITIS C ANTIBODY NON-REACT [facility] NON-REACT [facility] INDEX 0.02 <1.00 [facility] Comment: ?? HCV antibody was non-reactive. There is no laboratory ?? evidence of HCV infection. ?? In most cases, no further action is required. However, if recent HCV exposure is suspected, a test for HCV RNA (test code 10119) is suggested. ?? For additional information please refer to http://education.[employer].MyDeals.com/faq/CHR77j4 (This link is being provided for informational/ educational purposes only.) ?? 12/11/2020 9:20 AM EDT us Moustapha Wiggins MD HISTORICAL/NON ORDERABLE LAB S Final Result Performing Organization Address City/[facility]/ZIP Co de Phone Number [facility] Anywhere [address] * HIV 1/2 ANTIGEN/ANTIBODY,FOURTH GENERATION W/RFL (12/11/2020 9:20 AM EDT) HIV-1/2 ANTIGEN AND ANTIBODIES, 4TH GENERATION W/ REFLEX NON-REACT [place] NON-REACT [facility] Comment: HIV-1 antigen and HIV-1/HIV-2 [...] ? For additional information please refer to http://education.[employer]/faq/LEL096 (This link is being provided for informational/ educational purposes only.) ? The performance of this assay has not been clinically validated in patients less than 2 years old. ?? 12/11/2020 9:20 AM EDT us Moustapha Wiggins MD LAB BLOOD ORDERABLES Final R esult [facility] [address] from Last 3 Months or Most Recently Relevant to Health Maintenance Insurance [facility] C3 HSN FULL Care Teams Chief Ii Dispatcher Relationship Specialty Start Date End Date Eboni Terrazas NP [address] [place] [phone] PCP - General Family Medicine 05/15/23
--- OUTSIDE RECORDS SUMMARY | 2024-09-02 11:57 | XMS_ITS | Encounter Summary ---
Author Organization [employer] Address [address] [facility] 7[address] [place] [address] Care Team Providers Care Belt Lacer Name Role Phone Ailyn Finney Primary Care Provider [phone] Eboni Terrazas NP Primary Care Provider Encounter Details Date Type Department Care Team (Late st Contact Info) Description 10/08/2022 Orders Only [facility] [address] [place], [place] [phone] Anusha Davis LPN Social History Tobacco Use [...] on filedocumented in this encounter Care Teams Belt Lacer Relationship Specialty Start Date End Date Ailyn Finney FNP [address] [place] [id number] PCP - General Family Medicine 03/11/22 05/14/23 Eboni Terrazas NP [address] [place] [address] PCP - General Family Medicine 05/15/23 documented as of this encounter
--- OUTSIDE RECORDS SUMMARY | 2024-09-02 11:57 | XMS_ITS | Clinical Summary ---
Author Organization [facility] Address [address] [place] [address] Phone Care Team Providers Care Relief Pilot Name Role Phone Moustapha Wiggins Primary Care [...] complete this topic Insurance Medicaid [place] Medicaid [place] Care Teams Relief Pilot Relationship Specialty Start Date End Date Moustapha Wiggins PCP - General Internal Medicine 12/14/20
--- OUTSIDE RECORDS SUMMARY | 2024-09-02 11:57 | XMS_ITS | Encounter Summary ---
Author Organization [employer] Address [address] [facility] [address] [place] [address] Care Team Providers Care Weaver Wire Loom Name Role Phone Eboni Terrazas NP Primary Care Provider [phone] Reason for Visit * Reason Onset Date Comments Call Back Request 06/28/2024 Appointment Request 06/28/2024 Encounter Details Date Type Department Care Team ([facility] Contact Info) Description 06/28/2024 Telephone [facility] [address] [place], [place] [phone] Eboni Terrazas NP [address] [place] [address] Call Back Request; Appointment Request Social History [...] callback, Pt inform needs appointment with provider. Development Scientist offer triage called pt denied callback. Pt will like to discuss some information (no further info discussed). documented in this encounter Plan of Treatment Not on file documented as of this encounter Visit Diagnoses Not on filedocumented in this encounter Additional Health Concerns Assessment Noted Time PHQ-9 Depression Total Score: 0 05/07/19 10:53 AM EST documented as of this encounter Care Teams Weaver Wire Loom Relationship Specialty Start Date End Date Eboni Terrazas NP [address] [place] [id number] PCP - General Family Medicine 05/15/23 documented as of this encounter
--- OUTSIDE RECORDS SUMMARY | 2024-09-02 11:57 | XMS_ITS | Encounter Summary ---
Author Organization [employer] Address [address] [facility] [address] [place] [address] Care Team Providers Care Pumpman Name Role Phone Eboni Terrazas CLOTH GRADER SUPERVISOR Primary Care Provider [phone] Reason for Visit * Reason Onset Date Comments Reschedule 07/03/2023 Encounter Details Date Type Department Care Team ([facility] st Contact Info) Description 07/03/2023 Telephone [facility] [address] [place] [address] Eboni Terrazas NP [address] [place] [address] Reschedule Social History Tobacco Use Types Packs/Day [...] documented as of this encounter Care Teams Pumpman Relationship Specialty Start Date End Date Eboni Terrazas NP [address] [place] [id number] PCP - General Family Medicine 05/15/23 documented as of this encounter
--- NOTE | 2024-09-02 12:17 | HO.NEPHOV_ITS ---
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 She is not a diabetic. She has AFib with RVR and history of infarct. She denies smoking cigarettes but smokes marijuana. She closely follows up with cardiology. She denies any carotid stenosis, peripheral arterial disease. Imaging studies have ruled out renovascular disease. She does not have any epistaxis, photosensitivity, skin rashes, hematuria, nausea, vomiting, diarrhea, dizziness. She denies taking excessive nonsteroidal anti-inflammatories. She has no history of malignancy. Her blood pressure is better controlled now. Her mother was on hemodialysis [facility] Medical History HTN (hypertension) New onset a-fib Surgical History History of cardioversion (~09/2020) H/O tooth extraction Family History Father No problems noted. Mother No problems noted. Social History Household Members: Family Housing: Apartment Do you presently have visiting nurse or other home services: No Alcohol intake: current Alcohol intake frequency: former alcohol drinker Patient Tobacco Use Status: Former Tobacco user Second Hand Smoke Exposure: No Substance Use Type: Marijuana Advance Directives Date on File: 09/16/20 service: No Current occupational status: employed Review of Systems Const All systems reviewed & are unremarkable except as noted in HPI and below Physical Exam Vital Signs: Last Vital Signs Pulse 108 H 09/02/24 12:18 BP 122/82 09/02/24 12:18 Pulse Ox 97 09/02/24 12:18 Oxygen Delivery Method Room Air 09/02/24 12:18 BMI result Body Mass Index 31.0 Const General: comfortable and no acute distress Orientation/consciousness: patient oriented x3 HEENT Head: Yes normocephalic Mouth: Normal oral and palatal mucosa present Eyes EOM: EOMs intact bilaterally Neck Neck: Yes supple Resp Auscultation: clear to auscultation bilaterally Cardio Jugular venous distension: no JVD Rate: regular rate GI Palpation (GI): Soft to palpation Auscultation: normal bowel sounds General: Yes no CVA tenderness Back/Spine/Pelvis Back: no CVA tenderness Skin General skin exam: no rashes or lesions noted Neuro General: patient oriented x3 and moves all extremities Extrem General: Yes no pedal edema Results Reviewed Nephrology Results: Hgb 13.3 g/dl (12.0-16.0) 09/02/24 WBC 7.0 X10*3/uL (4.8-10.8) 09/02/24 Plt Count 188 X10*3/uL (160-400) 09/02/24 Sodium 138 mmol/L (135-145) 09/02/24 Potassium 4.0 mmol/L (3.3-5.1) 09/02/24 Chloride 104 mmol/L (96-108) 09/02/24 Carbon Dioxide 28 mmol/L (22-29) 09/02/24 BUN 16 mg/dL (9-16) 09/02/24 Creatinine 1.29 mg/dL (0.5-1.4) 09/02/24 Calcium 8.9 mg/dL (8.4-10.2) 09/02/24 PTH Intact 201.2 pg/mL (8.7-77.1) H 09/02/24 Assessment & Plan Assessment & Plan (1) CKD (chronic kidney disease) stage 3, GFR 30-59 ml/min: Code(s): N18.30 - Chronic kidney disease, stage 3 unspecified Category: Medical Qualifiers: Chronic kidney disease stage 3 subtype: stage 3a (GFR 45-59) Qualified Code(s): N18.31 - Chronic kidney disease, stage 3a (2) HTN (hypertension): Code(s): I10 - Essential (primary) hypertension Category: Medical Qualifiers: Hypertension type: primary hypertension Qualified Code(s): I10 - Essential (primary) hypertension (3) Essential hypertension: Code(s): I10 - Essential (primary) hypertension Category: Medical (4) Vitamin D deficiency: Code(s): E55.9 - Vitamin D deficiency, unspecified Category: Medical (5) Secondary hyperparathyroidism (of renal origin): Code(s): N25.81 - Secondary hyperparathyroidism of renal origin Category: Medical Plan Sarah has CKD 3 A. She is hypertensive but her BP is well controlled on current medication regimen. Doppler of her renal arteries ruled out any significant renal artery stenosis. She does not take any nonsteroidal anti-inflammatories. She is trying to minimize sodium in the diet. Cardiology colleagues are closely monitoring her. Her blood pressure needs to be maintain a goal. She could continue losartan 75 mg daily . I started her on Vitamin D 29836 U once a week. She may need a sestamibi scan as well as initiation of activated vitamin D soon. She is a great candidate for SGLT2 i. I did not make any other medication changes today. Her mother was on dialysis and she wants to make sure her renal functions are stable given her cardiac issues. I answered all questions. Follow-up appointment given Orders: Orders Creatinine 6 Months I10 - Essential (primary) hypertension, N18.31 - Chronic kidney disease, stage 3a Blood Urea Nitrogen 6 Months I10 - Essential (primary) hypertension, N18.31 - Chronic kidney disease, stage 3a Electrolytes 6 Months I10 - Essential (primary) hypertension, N18.31 - Chronic kidney disease, stage 3a Coding Level of Care Code Est Pt Level 4 (15323) Diagnoses Stage 3a chronic kidney disease N18.31 Chronic kidney disease stage 3 subtype: stage 3a (GFR 45-59) Primary hypertension I10 Hypertension type: primary hypertension Essential hypertension I10 Vitamin D deficiency E55.9 Secondary hyperparathyroidism (of renal origin) N25.81
[2024-09-02 12:18] VITALS: BP 122/82; PULSE 108; O2SAT 97; BMI 31.0
== END 2024-09-02 12:26 | disposition home or self-care (01) ==
LOC: HO.HKA 11:50
PROVIDERS: PCP Nurse Practitioner Family; Visit Provider Internal Medicine Nephrology
DX: N18.31 Chronic kidney disease, stage 3a (principal); I10 Essential (primary) hypertension; E55.9 Vitamin D deficiency, unspecified; N25.81 Secondary hyperparathyroidism of renal origin
CPT/HCPCS: 99214

== ENCOUNTER 2024-09-28 15:06 | Outpatient (REF) | payer MEDICAID, SELFPAY ==
--- OUTSIDE RECORDS SUMMARY | 2024-09-28 17:28 | XMS_ITS | Clinical Summary ---
Author Organization [facility] Address [address] [place] [address] Phone Care Team Providers Care Combination Window Installer Name Role Phone Moustapha Wiggins Primary Care [...] complete this topic Insurance Medicaid [place] Medicaid [place] Care Teams Combination Window Installer Relationship Specialty Start Date End Date Moustapha Wiggins PCP - General Internal Medicine 12/14/20
== END 2024-09-28 15:07 | disposition home or self-care (01) ==
LOC: HO.MAMMO 15:06
PROVIDERS: PCP Nurse Practitioner Family; Visit Provider Nurse Practitioner Family
DX: Z12.31 Encounter for screening mammogram for malignant neoplasm of breast (principal)
CPT/HCPCS: 77063; 77067

== ENCOUNTER → 2024-09-28 15:30 | Outpatient (BNV) | payer MEDICAID, SELFPAY | PROVIDERS: PCP Nurse Practitioner Family; Visit Provider Internal Medicine | DX: Z12.31 Encounter for screening mammogram for malignant neoplasm of breast (principal) | CPT/HCPCS: 77063; 77067 ==